=== PATIENT | female | born 1940 | race Caucasian/White ===

== ENCOUNTER 2020-01-05 08:04 | Outpatient (CLI) | payer MEDICARE, BC, SELFPAY ==
--- NOTE | ~2020-01-05 | CT_ITS ---
EXAMINATION: CT chest high resolution wo nh DATE: 01/05/2020 08:40 INDICATION: Interstitial lung disease. Dyspnea. TECHNIQUE: Computed tomography (CT) of the chest was performed without intravenous contrast. The dose -length product was 201.52 mGy-cm. Automated exposure control and iterative reconstruction technique were employed. COMPARISON: CT dated 10/16/2019 FINDINGS: Cardiomegaly. There is atherosclerosis. No significant pleural or pericardial effusion. Sta ble mediastinal lymphadenopathy. For example right paratracheal lymph node measures 1.4 cm, image 38. Status post cholecystectomy. The visualized aspects of the upper abdomen are unremarkable. There is chronic interstitial lung disease without significant change with a pattern consistent with nonspecif ic interstitial pneumonitis. There is mild-moderate thoracic spondylosis. No acute osseous abnormalit y. No pneumothorax. No endobronchial lesions. No acute focal pneumonia. IMPRESSION: 1. Stable chronic interstitial lung disease. 2: Stable mediastinal lymphadenopathy, likely reactive. 3: Cardiomegaly. Reviewed, dictated and finalized at location B. [employer]
--- NOTE | 2020-01-05 10:55 | PCRCNOTE ---
PT. UNABLE TO COMPLETE LUNG VOLUMES AND DIFFUSION. PT. KEPT COUGHING AND COMING OFF OF MOUTHPIECE. TESTING STOPPED. ONLY ABLE TO OBTAIN SPIROMETRY. RADHA AT DR. GUTIERREZ'S OFFICE NOTIFIED.
--- NOTE | 2020-01-07 23:30 | WPDPFTINT ---
PFT Interpretation PFT Interpretation: DOS: 01/05/2020 REQUESTING: Shortness of breath, ILD REASON FOR TESTING: Dr Medley PULMONARY FUNCTION TESTS The patient was unable to complete lung volumes or diffusion, coughed repeatedly with her mouth coming off of the mouthpiece. She was only able to complete the spirometry, not lung volumes or diffusion. Spirometry: FEV1 was mildly decreased, 73%, 1.4 L. The FVC was moderately decreased, 56%. No airflow obstruction. No bronchodilator was given. Flow volume loop: Unremarkable. IMPRESSION: Results are not completely reliable as the patient not able to complete the testing due to constant coughing. Mild to moderate ventilatory impairment without airflow obstruction. Missy Medley MD
== END 2020-01-05 08:05 | disposition home or self-care (01) ==
LOC: ANHIMG 08:07
PROVIDERS: PCP Internal Medicine; Visit Provider Internal Medicine Critical Care Medicine
DX: R06.02 Shortness of breath (principal); J84.9 Interstitial pulmonary disease, unspecified; R59.0 Localized enlarged lymph nodes; I51.7 Cardiomegaly
CPT/HCPCS: 71250; 94375

== ENCOUNTER 2020-01-21 16:45 | Outpatient (CLI) | payer MEDICARE, BC, SELFPAY ==
[2020-01-21 17:42] LABS: Basophils Absolute Auto 0.1 K/mm3 (0.0-0.1); Basophils Percent Auto 0.7 % (0.2-1.2); Eosinophils Absolute Auto 0.7 K/mm3 (0-0.3); Eosinophils Percent Auto 6.3 % (0-4.4); Hematocrit 29.7 % (37.0-47.0); Hemoglobin 9.3 g/dL (12.0-15.0); Immature Granulocyte Absolute 0.06 K/mm3 (0.00-0.031); Immature Granulocyte Percent A 0.5 % (0-0.5); Lymphocytes Absolute Auto 1.41 K/mm3 (0.9-3.2); Mean Corpuscular HGB Conc 31.3 g/dl (32-36); Mean Corpuscular Hemoglobin 26.2 pg (26-34); Mean Corpuscular Volume 83.7 fl (80-100); Mean Platelet Volume 8.6 fl (7.4-10.4); Monocytes Absolute Auto 0.8 K/mm3 (0.1-0.6); Monocytes Percent Auto 6.7 % (2.6-8.5); Neutrophils Absolute Auto 8.7 K/mm3 (1.3-6.7); Neutrophils Percent Auto 73.8 % (45.5-73.1); Platelet Count Result 475 k/mm3 (150-375); Red Blood Count 3.55 M/mm3 (4.2-5.4); Red Cell Distribution Width 12.4 % (11.5-14.5); White Blood Count 11.8 K/mm3 (4.5-10.0)
[2020-01-21 17:55] LABS: Alanine Aminotransferase 15 U/L (4-35); Albumin Level 3.5 g/dL (3.5-5.1); Alkaline Phosphatase 81 U/L (38-126); Aspartate Amino Transferase 31 U/L (14-36); Bilirubin,Total 0.2 mg/dL (0.2-1.3); Cholesterol 154 mg/dL (0-200); HDL Direct 43 mg/dL; Triglycerides 117 mg/dL (<150)
[2020-01-21 17:56] LABS: Alanine Aminotransferase 16 U/L (4-35); Albumin Level 3.7 g/dL (3.5-5.1); Alkaline Phosphatase 85 U/L (38-126); Aspartate Amino Transferase 30 U/L (14-36); Bilirubin,Total 0.2 mg/dL (0.2-1.3); Blood Urea Nitrogen 22 mg/dL (7-17); Calcium 8.5 mg/dL (8.4-10.2); Carbon Dioxide 28 mmol/L (22-30); Chloride 90 mmol/L (98-107); Estimated Glomerular Filt Rate 43; Glucose 107 mg/dL (65-105); Potassium 4.1 mmol/L (3.4-5.0); Sodium 127 mmol/L (137-145)
[2020-01-21 18:06] LABS: LDL Cholesterol Direct 72 mg/dL
[2020-01-21 18:30] LABS: Free T4 Free Thyroxine 1.66 ng/mL (0.78-2.19)
== END 2020-01-21 16:46 | disposition home or self-care (01) ==
PROVIDERS: Family Provider Nurse Practitioner; PCP Internal Medicine; Visit Provider Nurse Practitioner
DX: R06.02 Shortness of breath (principal); R53.1 Weakness; E78.2 Mixed hyperlipidemia; E03.9 Hypothyroidism, unspecified
CPT/HCPCS: 36415; 80053; 80061; 80076; 84439; 84443; 85025

== ENCOUNTER 2020-02-02 08:31 | Inpatient (IN) | payer MEDICARE, BC, SELFPAY ==
[2020-02-02] VITALS (9 sets, daily range): BP systolic 122–152; BP diastolic 55–70; PULSE 89–115; RESP 18–24; TEMP 36.6–36.9; O2SAT 96–100
--- NOTE | ~2020-02-02 | US_ITS ---
EXAMINATION: US carotid duplex BI DATE: 02/03/2020 11:29 INDICATION: Subjective visual disturbance, weakness including facial weakness, vertigo and gait probl ems. TECHNIQUE: Grayscale, color Doppler, and pulsed Doppler images of the cervical carotid arteries were obtained. The degree of vessel stenosis is placed in one of the following categories: normal, <50%, 5 0-69%, >=70% but less than near-occlusion, near-occlusion, or total occlusion. Note that percent sten osis relative to normal distal artery lumen diameter is indirectly measured from velocity measurement s as described by Simone, et al. Radiology 2003; [id number]:[id number]. COMPARISON: None. FINDINGS: RIGHT: The right common carotid artery (CCA) peak systolic velocity (PSV) is 89 cm/s. The right internal car otid artery (ICA) PSV is 100 cm/s. The right ICA end-diastolic velocity (EDV) is 31 cm/s. The right I CA/CCA PSV ratio is 1.1. Grayscale and color Doppler images yield an estimate of <50% diameter reduct ion from plaque in the ICA. The external carotid artery (ECA) PSV is 167 cm/s. There is antegrade quintin w in the right vertebral artery. LEFT: The left CCA PSV is 88 cm/s. The left ICA PSV is 84 cm/s. The left ICA EDV is 6 cm/s. The left ICA/CC A PSV ratio is 1.0. Grayscale and color Doppler images yield an estimate of <50% diameter reduction f rom plaque in the ICA. The ECA PSV is 136 cm/s. There is antegrade flow in the left vertebral artery. IMPRESSION: 1. <50% stenosis in the right internal carotid artery. 2. <50% stenosis in the left internal carotid artery. Reviewed, dictated and finalized at location A.
--- NOTE | ~2020-02-02 | CT_ITS ---
EXAMINATION: CT cervical spine wo/w con EXAM DATE: 02/03/2020 16:47 INDICATION: Lower extremity weakness. TECHNIQUE: Spiral CT of the cervical spine was performed without followed by with intravenous injecti on of 100 mL intravenous Omnipaque 350 contrast. Axial images were reviewed. Coronal and sagittal r eformatted images were also reviewed. The dose-length product (DLP) for this examination was 3690.66 mGy-cm. The exposure was tailored according to patient size (auto mA exposure control), and iterativ e reconstruction (ASIR) was used as additional dose reduction technique. Comparison is made to prior examination from 05/25/2018. FINDINGS: The vertebral arteries are codominant and both patent, no carotid or vertebral arterial di ssection. There is mild to moderate carotid bulb arterial sclerosis with no more than mild stenosis. Mild to moderate disc disease at C6-7, C7-T1, mild at the other cervical levels. There is 2-3 mm ante rolisthesis C3 on C4, C5 on C6, T1 and T2. There are no acute fractures identified. Vertebral body he ights are relatively well-maintained. Paraspinal soft tissue is unremarkable. There are no areas of a bnormal enhancement on the post contrast images. No evidence of epidural abscess. Level by level evaluation: C2-C3: Disc does not extend beyond the endplate margin. Uncovertebral joint arthropathy: Mild bilateral. Facet joint arthropathy: Moderate left, mild right. Neural foraminal stenosis: Mild to moderate left. Central canal stenosis: No stenosis. C3-C4: There is a mild diffuse disc bulge. Uncovertebral joint arthropathy: Mild to moderate left, mild right. Facet joint arthropathy: Severe left, moderate to severe right. Neural foraminal stenosis: Moderate to severe left. Central canal stenosis: No stenosis. C4-C5: There is a mild diffuse disc bulge. Uncovertebral joint arthropathy: Mild to moderate bilateral. Facet joint arthropathy: Severe right, moderate left. Neural foraminal stenosis: Severe right, moderate to severe left. Central canal stenosis: Mild. C5-C6: There is a mild diffuse disc bulge. Uncovertebral joint arthropathy: Moderate bilateral. Facet joint arthropathy: Severe right, moderate to severe left. Neural foraminal stenosis: Moderate to severe bilateral, right greater than left. Central canal stenosis: Mild. C6-C7: Disc does not extend beyond the endplate margin. Uncovertebral joint arthropathy: Moderate right, mild to moderate left. Facet joint arthropathy: Moderate to severe left, mild right. Neural foraminal stenosis: Mild to moderate right, mild left. Central canal stenosis: Mild. C7-T1: Disc does not extend beyond the endplate margin. Uncovertebral joint arthropathy: Mild bilateral. Facet joint arthropathy: Mild bilateral. Neural foraminal stenosis: No stenosis. Central canal stenosis: No stenosis. IMPRESSION: 1. Advanced cervical arthropathy causing neural foraminal stenosis as detailed above. 2. No evidence of significant central canal stenosis. Reviewed, dictated and finalized at location A.
--- NOTE | ~2020-02-02 | CT_ITS ---
EXAMINATION: CT brain wo con INDICATION: Lower extremity weakness COMPARISON: 05/25/2018 TECHNIQUE: Standard unenhanced head CT. The dose-length product (DLP) was 605.33 mGy-cm. The mA was a djusted according to patient size. Iterative reconstruction technique was employed. FINDINGS: There is no acute intraparenchymal hemorrhage. No evidence of mass lesion. No evidence of a cute infarction. There is mild periventricular and subcortical hypodensity probably related to small vessel ischemic disease. There is mild prominence of the sulci and ventricles related to cerebral atr ophy. Intracranial calcified cerebral atherosclerosis is noted. There are no extra-axial collections. There is no mass effect or midline shift. Changes in the globes are likely from ocular lens surgery. The visualized sinuses and mastoid air cells are well aerated. IMPRESSION: 1. No acute intracranial abnormality. 2. Age related findings. Reviewed, dictated and finalized at location A.
--- NOTE | ~2020-02-02 | CT_ITS ---
EXAMINATION: CT abdomen pelvis w con DATE: 02/04/2020 13:32 INDICATION: Microscopic hematuria. TECHNIQUE: Computed tomography (CT) of the abdomen and pelvis was performed with 100 mL Omnipaque 350 intravenous contrast. Automated exposure control and iterative reconstruction technique were employe d. The dose-length product was 812.88 mGy-cm. COMPARISON: CT lumbar spine 02/03/2020, abdomen 08/04/2004 FINDINGS: The visualized portions of the lung bases demonstrate peripheral reticular opacities, groun dglass opacities, airspace opacities and mild bronchiectasis, consistent with chronic interstitial lisa ng disease. Calcified pulmonary nodules are consistent with old granulomatous disease. No pleural eff usion. Cardiomegaly is noted. There are coronary artery calcifications. No pericardial effusion. Ther e is a 5 mm cyst in the liver. There are changes of cholecystectomy. The spleen, pancreas, and adrena l glands are normal. There are cysts in the kidneys measuring up to 5.8 cm on the right. There is no urolithiasis. There is diverticulosis of the colon without evidence of diverticulitis. There are no d ilated loops of bowel. The appendix is not visualized. There are no pathologically enlarged lymph nod es. There is no free intraperitoneal fluid. There is a total right hip arthroplasty. Artifact from th e arthroplasty partially obscures the bladder, which is otherwise normal. There is severe thoracic an d lumbar spondylosis. IMPRESSION: 1. No etiology for hematuria. 2. Chronic interstitial lung disease. Reviewed, dictated and finalized at location A.
--- NOTE | ~2020-02-02 | XR_ITS ---
EXAMINATION: XR chest 2V DATE: 02/02/2020 10:56 INDICATION: Cough and weakness TECHNIQUE: frontal and lateral views of the chest were obtained. COMPARISON: Chest radiograph dated 06/04/[address] dated 01/05/2020 FINDINGS: Similar pattern of peripheral and lower lung predominant coarse interstitial opacities in both lungs relatively sparing the left upper lung zone consistent with chronic interstitial lung disease. No ple ural effusion or pneumothorax. Cardiomegaly. Cholecystectomy clips in right upper quadrant. Severe th oracolumbar spondylosis. IMPRESSION: 1. 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 2. Cardiomegaly. Reviewed, dictated and finalized at location A. IMPRESSION: 1. Chronic bilateral coarse interstitial opacities with peripheral and lower lisa ng predominance consistent with chronic interstitial pneumonia of nonspecific i nterstitial pneumonia (NSIP) pattern on prior CT. 2. Cardiomegaly.
--- NOTE | ~2020-02-02 | CT_ITS ---
EXAMINATION: CT thoracic lumbar wo/w con EXAM DATE: 02/03/2020 16:43 INDICATION: Lower body weakness. TECHNIQUE: Spiral CT of the thoracic and lumbar spine was performed without contrast. Patient was the n injected with 100 mL intravenous Omnipaque 350 solution and reimaged thoracic and lumbar spine. Axi al, coronal and sagittal thoracic images were reviewed. Axial, coronal and sagittal images of the lum bar were reviewed. The dose-length product (DLP) for this examination was 3690.66 mGy-cm. The expos ure was tailored according to patient size (auto mA exposure control), and iterative reconstruction ( ASIR) was used as additional dose reduction technique. There is no prior study for comparison. FINDINGS: Some limitations from patient's body habitus. THORACIC SPINE: There are mild disc bulges causing no more than mild central canal stenosis of the th oracic spine. Mild to moderate thoracic facet arthropathy. This is causing some neural foraminal sten osis, on the left mostly T8-11 and on the right at T7/8, T8/9, T10-L1. The vertebral body heights are maintained. There are moderate-sized bridging thoracic endplate osteophytes from T8 through L1. Ther e are no acute fractures identified. The vertebral bodies are aligned in the AP dimension. There is n o CT evidence of epidural abscess. Correlation was made with CT chest 10/16/2019. Mildly diffusely heterogeneous marrow probably some fo jacob regions of osteopenia does not appear significantly changed. The peripheral airspace disease, int erstitial lung disease has progressed, with more interlobular septal thickening and volume loss of blue th lung bases, or could be superimposed pulmonary edema. There is cardiomegaly. LUMBAR SPINE: There is moderate to severe disc disease L4-S1, moderate at the other levels from T12-L 4. There is 3 mm anterolisthesis L3 on L4. Vacuum disc phenomenon at all levels from T12-S1. Mild los s of the L4 and L5 vertebral body heights without acute compression fracture. No spondylolysis. No CT evidence of epidural abscess. No paraspinal fluid collection or endplate erosive change. Sacroiliac joints are intact, no evidence of insufficiency fracture. Incidental note made of fat density within the central aspect of the spinal canal posterior to the L2 vertebral body measuring 4 mm diameter by 15 mm in length, probably a lipoma of the filum terminale. Level by level evaluation: T12-L1: There is a moderate diffuse disc bulge. Facet arthropathy: Mild to moderate. Neural foraminal stenosis: Mild to moderate right. Central canal stenosis: Mild. L1-L2: Moderate-sized posterior disc osteophyte complex. Facet arthropathy: Moderate. Neural foraminal stenosis: Mild to moderate bilateral. Central canal stenosis: Moderate. L2-L3: There is a moderate to large diffuse posterior disc osteophyte complex Facet arthropathy: Moderate to severe bilateral. Probable ligamentum flavum hypertrophy Neural foraminal stenosis: Moderate left, mild right. Central canal stenosis: At least moderate to severe. L3-L4: There is a moderate diffuse disc bulge. Facet arthropathy: Moderate to severe. Neural foraminal stenosis: Mild to moderate left, mild right. Central canal stenosis: Mild to moderate. L4-L5: There is a moderate diffuse disc bulge. Facet arthropathy: Moderate. Neural foraminal stenosis: Mild to moderate bilateral. Central canal stenosis: Moderate. L5-S1: There is a moderate diffuse disc bulge. Facet arthropathy: Moderate to severe. Neural foraminal stenosis: Moderate left, mild to moderate right. Central canal stenosis: Mild to moderate. IMPRESSION: 1. Thoracic spondylosis as described without significant central canal stenosis. 2. L2-3 posterior disc osteophyte complex, arthropathy causing at least moderate to severe central c anal stenosis. 3. Probable incident
--- NOTE | 2020-02-02 08:38 | ECG_ITS ---
Measurements Intervals [place] Rate: 112 P: 28 MT: 177 QRS: 1 QRSD: 86 T: -9 QT: 293 QTc: 400 Interpretive Statements SINUS TACHYCARDIA LOW QRS VOLTAGE IN PRECORDIAL LEADS BORDERLINE R WAVE PROGRESSION, ANTERIOR LEADS BORDERLINE ST-T WAVE ABNORMALITY- ANT/INF LEADS BASELINE ARTIFACT- I, II, AVR, AVL, V5 ABNORMAL ECG Electronically Signed On 02-02-2020 9:49:03 CDT by Minesh Guan D.O.
--- NOTE | 2020-02-02 08:48 | ED.WEAKNESS ---
HPI - Weakness General Chief complaint: Weakness Stated complaint: weakness Time Seen by Provider: 02/02/20 08:41 Source: patient Mode of arrival: EMS Limitations: no limitations History of Present Illness HPI Narrative: Pt is an 79 y/o female who presents to the ED, via EMS, with c/o BLE weakness that started 3 days ago and worsened this morning. Pt states that she is barely able to stand on her feet. She reports lt leg numbness, but denies fever, or N/V. MD Complaint: difficulty walking Onset (ago): day(s) (3) Duration: progressively worsening Location: LLE and RLE Associated symptoms: other (lt leg numbness) Related Data Home Medications Medication Instructions Recorded Confirmed aspirin 81 mg tablet,delayed 81 mg PO DAILY 10/13/19 01/20/20 release conjugated estrogens 0.45 mg tablet 0.45 mg PO DAILY 10/13/19 01/20/20 flurbiprofen 100 mg tablet 100 mg PO BID 10/13/19 01/20/20 aebuvjci-ull-cefwm acid 0.4 1 tablet PO DAILY 10/13/19 01/20/20 mg-lycopene 300 mcg-lutein 250 mcg tablet vitamin E (dl, acetate) 400 unit 400 unit PO DAILY 10/13/19 01/20/20 capsule fexofenadine 60 mg tablet 60 mg PO Q12H 01/14/20 01/20/20 fluticasone propionate 50 1 spray NASAL BID 01/14/20 01/20/20 mcg/actuation nasal spray,suspension Allergies Allergy/AdvReac Type Severity Reaction Status Date / Time SEBASTIEN Inhibitors Allergy Unknown unknown Verified 02/02/20 11:51 ciprofloxacin Allergy Unknown unknown Verified 02/02/20 11:51 lisinopril Allergy Unknown unknown Verified 02/02/20 11:51 Sulfa (Sulfonamide AdvReac Intermediate DIARRHEA Verified 02/02/20 11:51 Antibiotics) codeine AdvReac Mild NAUSEA/VOMI Verified 02/02/20 11:51 TING Review of Systems Review of Systems: All systems reviewed & are unremarkable except as noted in HPI and below Constitutional: Constitutional: Denies fever(s) Gastrointestinal: Gastrointestinal: Denies nausea and Denies vomiting Neurologic: Reports numbness (lt leg) and Reports weakness (BLE) PMFSH Past Medical History Medical History (Updated 02/02/20 @ 13:21 by Pawan Flor MD) Adult hypothyroidism Arthritis COPD (chronic obstructive pulmonary disease) Diverticulitis Essential (primary) hypertension Gastroesophageal reflux disease without esophagitis GERD (gastroesophageal reflux disease) IBS (irritable bowel syndrome) ILD (interstitial lung disease) Iron deficiency anemia Mixed hyperlipidemia Primary osteoarthritis involving multiple joints Psoriasis Pulmonary arterial hypertension Spinal stenosis, unspecified region other than cervical Surgical History Surgical History (Updated 02/02/20 @ 09:26 by Agnes Sanchez) H/O: hysterectomy History of back surgery History of bladder surgery History of right hip replacement History of total hip replacement Hx of cholecystectomy Social History Social History Smoking status: Former smoker Smoking end date: 11/05/84 Alcohol intake: never Exam Const: General: no acute distress, well developed and other (elderly) Nutritional Appearance: other (frail) Orientation/consciousness: patient oriented x3 (alert) and Other orientation findings (Alert) Limitations: no limitations HENMT: Head: normocephalic, atraumatic and other (wearing a mask) Ears: external ears normal Face and sinus: face symmetric Eyes: Conjunctivae: conjunctivae normal Sclera: sclerae normal EOM: EOMs intact bilaterally Neck: Neck: full ROM Chest: Chest palpation & inspection: no tenderness Resp: Effort & Inspection: normal respiratory effort Cardio: Rate: regular rate Rhythm: regular rhythm Peripheral pulses: posterior tibial pulses present bilateral and dorsalis pedis present bilateral GI: Inspection: non-distended GI Palp: No abdominal tenderness and Yes Soft to palpation Auscultation: other (bowel sounds present) Back/Spine/Pelvis: Thoracic/Lumbar Spine: thoracic and lumbar s
[2020-02-02 09:01] LABS: Basophils Absolute Auto 0.1 K/mm3 (0.0-0.1); Basophils Percent Auto 0.5 % (0.2-1.2); Eosinophils Absolute Auto 0.2 K/mm3 (0-0.3); Eosinophils Percent Auto 1.3 % (0-4.4); Hematocrit 31.9 % (37.0-47.0); Immature Granulocyte Percent A 0.7 % (0-0.5); Lymphocytes Absolute Auto 1.14 K/mm3 (0.9-3.2); Lymphocytes Percent Auto 7.8 % (18.3-44.2); Mean Corpuscular HGB Conc 31.3 g/dl (32-36); Mean Corpuscular Hemoglobin 26.1 pg (26-34); Mean Corpuscular Volume 83.3 fl (80-100); Mean Platelet Volume 8.8 fl (7.4-10.4); Monocytes Absolute Auto 0.8 K/mm3 (0.1-0.6); Monocytes Percent Auto 5.7 % (2.6-8.5); Neutrophils Absolute Auto 12.4 K/mm3 (1.3-6.7); Platelet Count Result 605 k/mm3 (150-375); Red Blood Count 3.83 M/mm3 (4.2-5.4); Red Cell Distribution Width 13.1 % (11.5-14.5); White Blood Count 14.7 K/mm3 (4.5-10.0)
[2020-02-02 09:19] LABS: Alanine Aminotransferase 27 U/L (4-35); Albumin Level 3.6 g/dL (3.5-5.1); Alkaline Phosphatase 105 U/L (38-126); Aspartate Amino Transferase 49 U/L (14-36); Bilirubin,Total 0.4 mg/dL (0.2-1.3); Blood Urea Nitrogen 21 mg/dL (7-17); Carbon Dioxide 27 mmol/L (22-30); Chloride 94 mmol/L (98-107); Estimated CRCL calculation 46 ml/min; Estimated Glomerular Filt Rate 60; Glucose 116 mg/dL (65-105); Sodium 128 mmol/L (137-145)
[2020-02-02 10:51] LABS: Add Urine Microscopic? YES; Appearance Urine Clear (Clear); Bacteria Urine Trace /hpf; Bilirubin Urine Negative (Negative); Blood Urine 1+ (Negative); Color Urine Yellow (Yellow); Glucose Urine UA Negative (Negative); Ketones Urine Negative (Negative); Leukocyte Esterase Ur Negative LEU/UL (Negative); Mucus Urine Rare /lpf; Nitrate Urine Negative (Negative); Protein Urine Negative (Negative); Specific Grav Ur 1.013 (1.001-1.035); Squamous Epithelial Cell Urine Rare /hpf (Few); Urobilinogen Urine Negative mg/dL (<2.0)
[2020-02-02] MEDS: ONDANSETRON INJ 4 MG/2 ML VIAL (14:23)
[2020-02-02] MEDS: SODIUM CHLORIDE 0.9% IV 1,000 ML 125 ML IV CONT ×2 (15:46→23:53)
[2020-02-02] MEDS: ASPIRIN 81 MG CHEWABLE TABLET PO (15:48)
--- NOTE | 2020-02-02 17:23 | PM.IMHP ---
H&P: HPI History of Present Illness Chief complaint: Gait problems/foot drop/interstitial lung disease/ Narrative: Aryan Nick is a 79 year old female patient has a history of chronic interstitial lung disease. The patient sees Dr. Medley here in the clinic. She has not been on any steroids. She has not had any recent flu shots are any recent vaccines. She is not herself had any influenza. She has had no prior history of any strokes. The patient stated that she cannot walk and that she has weakness to her lower extremities is more lower extremities. That is her upper extremities. She has had no nausea no vomiting no diarrhea. CT of the head no acute intracranial abnormality. Age-related findings. Her H&H is 10.0 in 31.9. White count 14.7. Sodium is 128. Patient is being admitted for stroke workup and neurology has been consulted. She was given an aspirin in Zofran in the emergency room. Was read as chronic bilateral coarse interstitial opacities with peripheral and lower lung predominance consistent with chronic interstitial pneumonia nonspecific interstitial pneumonia pattern on prior CT. She has CT scan earlier this month and in October and she states that this month which was similar similar. Patient cannot have an MRI she is severely claustrophobic. He has tried Valium in the past with an MRI in it did work out. Date of service 02/02/2020 Review of Systems Review of Systems: All systems reviewed & are unremarkable except as noted in HPI and below Constitutional: Constitutional: Reports as per HPI, Reports no additional constitutional complaints, Reports fatigue and Reports lethargy Eyes: Eyes: Reports as per HPI and Reports no additional eye complaints ENT: Reports system reviewed and no additional complaints, except as documented and Reports Normal hearing present Cardiovascular: Cardiovascular: Reports no additional cardiovascular complaints Respiratory: Respiratory: Reports no additional respiratory complaints and Reports no additional respiratory complaints Gastrointestinal: Gastrointestinal: Reports as per HPI and Reports no additional gastrointestinal complaints Musculoskeletal: Musculoskeletal: Reports no additional musculoskeletal complaints Integumentary/Breasts: Skin/Breast: Reports system reviewed and no additional complaints, except as docu and Reports as per HPI Neurologic: Reports system reviewed and no additional complaints, except as documented, Reports as per HPI and Reports Normal hearing present Psychiatric: Psychiatric: Reports no additional psychiatric complaints and Reports as per HPI Endocrine: Endocrine: Reports no additional endocrine complaints Hematologic/Lymphatic: Hematologic/Lymphatic: Reports no additional hematologic/lymphatic complaints Allergic/Immunologic: Allergic/Immunologic: Reports no additional allergic/immunologic complaints [facility] Past Medical History Medical History Adult hypothyroidism Arthritis COPD (chronic obstructive pulmonary disease) Diverticulitis Essential (primary) hypertension Gastroesophageal reflux disease without esophagitis GERD (gastroesophageal reflux disease) IBS (irritable bowel syndrome) ILD (interstitial lung disease) Iron deficiency anemia Mixed hyperlipidemia Primary osteoarthritis involving multiple joints Psoriasis Pulmonary arterial hypertension Spinal stenosis, unspecified region other than cervical Surgical History Surgical History H/O: hysterectomy History of back surgery History of bladder surgery History of right hip replacement History of total hip replacement Hx of cholecystectomy Family History Family History (Updated 02/02/20 @ 17:36 by Scarlet Puckett NP) Mother Cerebrovascular accident Father Acute myocardial infarction Sibling Heart disease Social History Social History (Updated 02/02/20 @ 17:38 by [place]
[2020-02-02 18:46] LABS: Blood Urea Nitrogen 20 mg/dL (7-17); Calcium 8.4 mg/dL (8.4-10.2); Carbon Dioxide 27 mmol/L (22-30); Chloride 92 mmol/L (98-107); Estimated CRCL calculation 46 ml/min; Estimated Glomerular Filt Rate 60; Glucose 120 mg/dL (65-105); Potassium 4.6 mmol/L (3.4-5.0); Sodium 126 mmol/L (137-145)
[2020-02-02] MEDS: AZITHROMYCIN 250 MG TABLET PO (19:04)
[2020-02-02] MEDS: FAMOTIDINE 20 MG TABLET 40 MG PO (20:16)
[2020-02-02] MEDS: CALCIUM CARBONATE (TUMS) 500 MG (200 MG ELEMENTAL) PO (20:16)
[2020-02-02] MEDS: FLUTICASONE PROPIONATE 0.05% NA SPR 16 GM BTL (*BKC) 1 SPRAY NASAL (20:50)
[2020-02-03] VITALS (9 sets, daily range): BP systolic 108–134; BP diastolic 52–55; PULSE 81–99; RESP 16–18; TEMP 36.5–37.3; O2SAT 95–98; BMI 28.0
--- NOTE | 2020-02-03 | ECHO_ITS ---
Patient Info Name: Aryan Nick Age: 79 years : 1940 Gender: Female Ht: 66 in Wt: 173 lbs BSA: 1.93 m2 HR: 86 bpm BP: 118 / 55 mmHg Heart Rhythm: Sinus Rhythm Technical Quality: Good Exam Date: 02/03/2020 9:29 AM Exam Location: [facility] [facility] Patient Status: Inpatient Admit Date: 02/02/2020 Staff Ordering Physician: Scarlet Puckett NP Pipe [employer] Pipe: Gunnar Dyer RDCS Attending Provider: Cristofer Cortez MD Referring Physician: Lavern CASTILLO; Exam Type: CA echo doppler w bubble study Study Info Indications R53.1 - Weakness Complete two-dimensional, color flow and Doppler transthoracic echocardiogram is performed with agitated saline. Contrast/Agitated Saline Contrast/Ag. Saline: Agitated Saline Amount: 18.00 ml Administered By: Arianne Toure RN Existing IV Access: Yes History/Risk Factors Weakness; COPD, HTN, pHTN. Summary 1. Left ventricular chamber dimension is normal. 2. Left ventricular systolic function is normal, estimated at 65-70%. 3. The left ventricular diastolic function is grade I diastolic dysfunction. 4. E/e' 7 is not elevated. 5. Left atrial chamber dimension is mildly enlarged. 6. There is trace mitral valve regurgitation. 7. There is mild tricuspid valve regurgitation. 8. Mild pulmonary hypertension, estimated pulmonary arterial systolic pressure is 42 mmHg. 9. There is mild pulmonic regurgitation. Left Ventricle E/e' 7 is not elevated. Left ventricular chamber dimension is normal. Left ventricular systolic function is normal, estimated at 65-70%. The left ventricular diastolic function is grade I diastolic dysfunction. Right Ventricle Right ventricular chamber dimension is normal. Right ventricular systolic function is normal. Left Atria Left atrial chamber dimension is mildly enlarged. Right Atria Right atrial chamber dimension is normal. Atrial Septum Agitated saline administered opacified right sided chambers with and without valsalva maneuver without any shunt to left sided chambers. Intact interatrial septum visualized by color flow and agitated saline imaging. Aortic Valve The aortic valve is trileaflet. There is no aortic valve stenosis. There is no aortic valve regurgitation. Pulmonic Valve There is mild pulmonic regurgitation. Mitral Valve There is no mitral valve stenosis. There is trace mitral valve regurgitation. Tricuspid Valve There is mild tricuspid valve regurgitation. Mild pulmonary hypertension, estimated pulmonary arterial systolic pressure is 42 mmHg. Pericardium/Pleural There is no pericardial effusion. Inferior Vena Cava Normal inferior vena cava with >50% collapse upon inspiration consistent with normal right atrial pressure, 5 mmHg. Aorta The aortic root size at the sinus of Valsalva is normal. Left Ventricular Outflow Tract Name Value Normal LVOT 2D LVOT Diameter 2.1 cm LVOT Doppler LVOT Peak Gradient 5 mmHg LVOT Mean Gradient 2 mmHg LVOT VTI
[2020-02-03 05:25] LABS: Basophils Absolute Auto 0.1 K/mm3 (0.0-0.1); Basophils Percent Auto 0.6 % (0.2-1.2); Eosinophils Absolute Auto 0.1 K/mm3 (0-0.3); Eosinophils Percent Auto 0.8 % (0-4.4); Hematocrit 28.4 % (37.0-47.0); Hemoglobin 8.8 g/dL (12.0-15.0); Immature Granulocyte Absolute 0.13 K/mm3 (0.00-0.031); Immature Granulocyte Percent A 0.9 % (0-0.5); Lymphocytes Percent Auto 8.4 % (18.3-44.2); Mean Corpuscular Hemoglobin 25.9 pg (26-34); Mean Corpuscular Volume 83.5 fl (80-100); Mean Platelet Volume 8.5 fl (7.4-10.4); Monocytes Absolute Auto 0.8 K/mm3 (0.1-0.6); Monocytes Percent Auto 5.5 % (2.6-8.5); Neutrophils Percent Auto 83.8 % (45.5-73.1); Platelet Count Result 536 k/mm3 (150-375); Red Cell Distribution Width 13.1 % (11.5-14.5); White Blood Count 14.4 K/mm3 (4.5-10.0)
[2020-02-03 05:35] LABS: Alanine Aminotransferase 27 U/L (4-35); Albumin Level 2.9 g/dL (3.5-5.1); Alkaline Phosphatase 80 U/L (38-126); Aspartate Amino Transferase 44 U/L (14-36); Bilirubin,Total 0.3 mg/dL (0.2-1.3); Blood Urea Nitrogen 18 mg/dL (7-17); Calcium 8.1 mg/dL (8.4-10.2); Carbon Dioxide 24 mmol/L (22-30); Chloride 97 mmol/L (98-107); Estimated CRCL calculation 51 ml/min; Estimated Glomerular Filt Rate > 60; Glucose 99 mg/dL (65-105); Magnesium 1.9 mg/dL (1.6-2.3); Potassium 4.6 mmol/L (3.4-5.0); Sodium 128 mmol/L (137-145)
[2020-02-03] MEDS: LEVOTHYROXINE SODIUM 50 MCG TABLET PO (06:19)
[2020-02-03] MEDS: SODIUM CHLORIDE 0.9% IV 1,000 ML 125 ML IV CONT ×2 (06:19→17:03)
[2020-02-03 07:12] LABS: Thyroid Stimulating Hormone Reflex 0.994 uIU/mL (0.465-4.68)
--- NOTE | 2020-02-03 08:26 | PCOTNOTE ---
OT attempted evaluation this morning. Nurse was present and helping patient get adjusted in bed. The patient stated she knew what therapy was and refused to participate in an evaluation. She reports she is too weak to do anything. Both nurse and OT explained the benefits of occupational therapy and the importance of completing ADLs to regain strength. Patient still refused. OT helped nurse adjust the patient in bed and informed the patient she will attempt again this afternoon.
[2020-02-03] MEDS: ASPIRIN 81 MG CHEWABLE TABLET PO (08:35)
[2020-02-03] MEDS: CANDESARTAN CILEXETIL 16 MG TABLET PO (08:35)
[2020-02-03] MEDS: FLUTICASONE PROPIONATE 0.05% NA SPR 16 GM BTL (*BKC) 1 SPRAY NASAL ×2 (08:35→20:54)
[2020-02-03] MEDS: VITAMIN E 400 UNIT CAPSULE PO (08:35)
[2020-02-03] MEDS: hydroCHLOROthiazide 12.5 MG CAPSULE PO (08:35)
[2020-02-03] MEDS: FAMOTIDINE 20 MG TABLET 40 MG PO ×2 (08:35→17:04)
[2020-02-03] MEDS: MULTIVITAMINS /C LUTEIN (CENTRUM SILVER) TABLET *BKC 1 TAB PO (08:35)
--- NOTE | 2020-02-03 13:46 | CONS_ITS ---
DATE OF CONSULTATION: 02/02/2020 HISTORY OF PRESENT ILLNESS: This 79-year-old right-handed female has been admitted to [facility] through the emergency room for the complaint of gait dysfunction with a footdrop in addition to history of interstitial lung disease. She has not had any specific flu shots and she sees her dr in the clinic. She has no history of stroke in the past, but she complained that she was unable to walk because of weakness in her lower extremities, more so than upper extremities without associated general symptomatology such as nausea, vomiting, diarrhea. Initial CT scan of the head in the emergency room was negative. WBCs were 14.7, sodium 128. She was admitted to the hospital for the workup of the stroke. In the emergency room, she was given aspirin and Zofran. She was also noted to have chronic bilateral coarse interstitial opacities with peripheral and lower lungs predominance, consistent with chronic interstitial pneumonia. She has had the CT scan earlier this month, which has revealed the same findings. She was unable to have MRI because of claustrophobia. PAST MEDICAL HISTORY: In the past, she has ongoing history of hypothyroidism, arthritis, COPD, diverticulitis, GERD, irritable bowel syndrome, interstitial lung disease, iron deficiency anemia, hyperlipidemia, osteoarthritis involving multiple joints, psoriasis, pulmonary hypertension, and spinal stenosis other than the cervical. PAST SURGICAL HISTORY: She has also undergone hysterectomy, back surgery, bladder surgery, right hip replacement, total hip replacement, and cholecystectomy. SOCIAL HISTORY: She quit smoking about 35 years ago. Former smoker. Does not drink. MEDICATIONS: At the time of admission to the hospital, she was taking multiple medications includin. Aspirin. 2. Levothyroxine. 3. Hydrochlorothiazide. 4. Azithromycin. 5. Ranitidine. ALLERGIES: SHE IS ALLERGIC TO SEBASTIEN INHIBITOR, CIPRO, LISINOPRIL, SULFA, CODEINE, AND DECONGESTANT. PHYSICAL EXAMINATION: VITAL SIGNS: Evaluation up until now has revealed her to be afebrile and pulse 115, respiration 18, blood pressure 128/68. GENERAL: She is awake, alert, cooperative, in no obvious acute distress, eating her dinner, complaining of difficulties in ambulation. HEENT: Head normocephalic with no cranial bruit. Ear, nose, throat examination normal. NECK: Supple with no cervical bruit. No thyromegaly. No lymphadenopathy. HEART: Regular. LUNGS: Clear. ABDOMEN: Soft. NEUROLOGICAL: She is awake, alert, oriented x3. Speech not dysphasic, not dysarthric, not dysphonic. Pupils round, regular. Jackson of vision full. Extraocular movements full. Face symmetrical. Tongue midline. Motor examination revealed her to have weakness of the lower extremities. Deep tendon reflexes sluggish. Plantars are downgoing. She has no evidence of gross cerebellar deficit. LABORATORY DATA: Evaluation up until now revealed her to have normal CBC with hemoglobin 10.0, WBC 14.7 with platelet count 605. Basic metabolic panel with sodium of 128, chloride 94, CO2 of 27, BUN 21. Hepatic enzymes normal. UA negative. CT scan of the head is negative. IMPRESSION: Considering that she has ongoing history of chronic back, in addition to the history of spinal stenosis. Her extremities weakness could very well be related to that. She will definitely benefit from the MRI of the back, if she is unable to handle then we can get the CT scan. She will definitely need the CT scan of thoracic, cervical and lumbosacral spine before any further recommendations are made. NGOC CHAN M.D. FLOOR [employer]NER C
--- NOTE | 2020-02-03 14:27 | PM.IMPN ---
Progress Note: A&P Assessment and Plan (1) Gait disorder: Code(s): R26.9 - Unspecified abnormalities of gait and mobility Status: Acute Assessment and Plan: Spinal vs autoimmune (myopathy, MG, PMR, paraneoplastic) vs functional CRP, CK, CT c-, t-, l-spines (2) Iron deficiency anemia: Code(s): D50.9 - Iron deficiency anemia, unspecified Status: Acute Assessment and Plan: H/H drifting down a bit. F/u lab. (3) Spinal stenosis, unspecified region other than cervical: Code(s): M48.00 - Spinal stenosis, site unspecified Status: Acute Assessment and Plan: Prior surgery for thoracic stenosis (4) ILD (interstitial lung disease): Code(s): J84.9 - Interstitial pulmonary disease, unspecified Status: Acute Assessment and Plan: Clinically stable (5) Cough: Code(s): R05 - Cough Status: Acute Assessment and Plan: Chronic Subjective Date/time seen: 02/03/20 14:27 Interval history: Admitted 02/01 with about 3 days of gradually increased weakness and numbness in legs. Difficulty rolling over in bed. Had some jaw claudication 1-2 days ago. Chronic intermittent back pain. Denied pain in chest or abdomen. Denied worsened SOB (has chronic cough and BARR). Denied dysphagia. Denied other GI/GI changes. Denied bleeding. Review of Systems Review of Systems: All systems reviewed & are unremarkable except as noted in HPI and below Exam Narrative: Exam Narrative: HEENT: EOMI, PERRL, sclerae nonicteric, pharyngeal mucosa pink and intact NECK: No JVD, adenopathy, or thyromegaly CHEST: Clear to auscultation. Normal effort. HEART: NL S1/S2, regular, no murmur ABDOMEN: BS+, soft, nontender, no mass, no bruits EXTREMITIES: No cyanosis, edema, or clubbing. NEUROLOGIC: CN intact and symmetric to inspection. DTRs intact to BT, 1+ knees, absent ankles. Babinskis normal. MUSCULOSKELETAL: Tone and strength symmetric. Sheetmetal Patternmaker intact w/o change on repetitive movement. LE strength symmetric. Nontender joints w/o swelling. PSYCH: Alert. Oriented to person, place, and time. Anxious. Objective Data Vital Signs Vital Signs: Vital Signs - 24 hr 02/02/20 15:09 02/02/20 20:00 02/03/20 00:00 Temperature 98.5 F Pulse Rate 102 H 89 84 Respiratory Rate 18 Blood Pressure 122/55 L Pulse Oximetry 98 02/03/20 04:00 02/03/20 06:12 02/03/20 08:00 Temperature 98.1 F Pulse Rate 81 83 84 Respiratory Rate 16 Blood Pressure 118/55 L Pulse Oximetry 95 Intake/Output Intake/Output: Intake & Output 01/31/20 02/01/20 02/02/20 02/03/20 23:59 23:59 23:59 23:59 Intake Total 1720 1590 Output Total 300 Balance 1720 1290 Meds/Results Medications: Active Medications Generic Name Dose Route Start Last Admin Trade Name Freq PRN Reason Stop Dose Admin Aspirin 81 mg 02/02/20 08:00 02/03/20 08:35 Aspirin Chewable PO 81 mg DAILY@0800 [facility] Administration Benzonatate 100 mg 02/02/20 17:19 Tessalon Perles PO TID PRN cough Candesartan Cilexetil 16 mg 02/03/20 09:00 02/03/20 08:35 Atacand PO 16 mg DAILY [facility] Administration Clobetasol Propionate 1 applic 02/03/20 09:00 02/03/20 08:36 Temovate 0.05% Cream TOPICAL 1 applic BID [facility] Administration Famotidine 40 mg 02/03/20 09:00 02/03/20 08:35 Pepcid PO 40 mg BID [facility] Administration Fluticasone Propionate 1 spray 02/02/20 21:00 02/03/20 08:35 Flonase 0.05% Nasal [place] NASAL 1 spray Q12HR LUZ MARINA Administration Hydrochlorothiazide 12.5 mg 02/03/20 09:00 02/03/20 08:35 Hydrochlorothiazide PO 12.5 mg DAILY [facility] MAR[facility] Administration Sodium Chloride 1,000 mls @ 125 mls/hr 02/02/20 13:25 02/03/20 06:19 Normal Saline Iv IV CONT 125 mls/hr .Q8H LUZ MARINA Administration Levothyroxine Sodium 50 mcg 02/03/20 06:30 02/03/20 06:19 Synthroid PO 50 mcg DAILY@0630 LUZ MARINA Administration Multivitamins/Minerals 1 tab
[2020-02-03 17:26] LABS: Creatine Kinase 175 U/L (30-135)
[2020-02-03] MEDS: BENZONATATE 100 MG CAPSULE PO (17:38)
[2020-02-03 17:41] LABS: CRP 22.7 mg/dL (<1.0)
[2020-02-03 17:52] LABS: Hepatitis B Surface Antigen Negative (Negative)
[2020-02-03 17:57] LABS: HAV RESULT Negative (Negative)
[2020-02-03 18:02] LABS: Iron 19 ug/dL (37-170)
[2020-02-03 18:09] LABS: Hepatitis C Virus Antibody Negative (Negative)
[2020-02-03 18:14] LABS: Percent Iron Saturation 8 % (20-50)
[2020-02-03 19:58] LABS: Folic Acid 19.3 ng/mL (2.76->20)
[2020-02-03 23:23] LABS: Urea Random Urine 365 MG/DL
[2020-02-03 23:24] LABS: Creatinine Urine 30.4 mg/dL
[2020-02-04] VITALS (8 sets, daily range): BP systolic 120–143; BP diastolic 54–76; PULSE 78–92; RESP 18–21; TEMP 36.4–37.2; O2SAT 95–100
[2020-02-04] MEDS: SODIUM CHLORIDE 0.9% IV 1,000 ML 125 ML IV CONT ×2 (02:06→16:33)
[2020-02-04] MEDS: BENZONATATE 100 MG CAPSULE PO ×3 (02:07→16:34)
[2020-02-04] MEDS: LEVOTHYROXINE SODIUM 50 MCG TABLET PO (06:01)
[2020-02-04 06:02] LABS: Alanine Aminotransferase 30 U/L (4-35); Albumin Level 2.9 g/dL (3.5-5.1); Alkaline Phosphatase 85 U/L (38-126); Aspartate Amino Transferase 46 U/L (14-36); Bilirubin,Total 0.3 mg/dL (0.2-1.3); Blood Urea Nitrogen 16 mg/dL (7-17); Calcium 8.1 mg/dL (8.4-10.2); Carbon Dioxide 25 mmol/L (22-30); Chloride 97 mmol/L (98-107); Estimated CRCL calculation 46 ml/min; Estimated Glomerular Filt Rate 60; Glucose 104 mg/dL (65-105); Potassium 4.2 mmol/L (3.4-5.0); Sodium 126 mmol/L (137-145)
[2020-02-04 06:09] LABS: Hematocrit 28.6 % (37.0-47.0); Hemoglobin 9.1 g/dL (12.0-15.0); Mean Corpuscular HGB Conc 31.8 g/dl (32-36); Mean Corpuscular Volume 81.7 fl (80-100); Mean Platelet Volume 8.5 fl (7.4-10.4); Platelet Count Result 642 k/mm3 (150-375); Red Cell Distribution Width 13.2 % (11.5-14.5); White Blood Count 16.8 K/mm3 (4.5-10.0)
[2020-02-04] MEDS: ASPIRIN 81 MG CHEWABLE TABLET PO (07:58)
[2020-02-04] MEDS: CANDESARTAN CILEXETIL 16 MG TABLET PO (07:58)
[2020-02-04] MEDS: FAMOTIDINE 20 MG TABLET 40 MG PO ×2 (07:59→16:34)
[2020-02-04] MEDS: FLUTICASONE PROPIONATE 0.05% NA SPR 16 GM BTL (*BKC) 1 SPRAY NASAL ×2 (07:59→20:26)
[2020-02-04] MEDS: VITAMIN E 400 UNIT CAPSULE PO (08:00)
[2020-02-04] MEDS: MULTIVITAMINS /C LUTEIN (CENTRUM SILVER) TABLET *BKC 1 TAB PO (08:00)
--- NOTE | 2020-02-04 09:33 | WPDNEUROPN ---
Progress Note: A&P Assessment and Plan (1) Chronic interstitial lung disease: Code(s): J84.9 - Interstitial pulmonary disease, unspecified Status: Acute (2) Gait disorder: Code(s): R26.9 - Unspecified abnormalities of gait and mobility Status: Acute (3) Foot drop, left: Code(s): M21.372 - Foot drop, left foot Status: Acute (4) History of total hip replacement: Code(s): Z96.649 - Presence of unspecified artificial hip joint Status: Acute (5) Adult hypothyroidism: Code(s): E03.9 - Hypothyroidism, unspecified Status: Acute (6) Iron deficiency anemia: Code(s): D50.9 - Iron deficiency anemia, unspecified Status: Acute (7) Mixed hyperlipidemia: Code(s): E78.2 - Mixed hyperlipidemia Status: Acute (8) Spinal stenosis, unspecified region other than cervical: Code(s): M48.00 - Spinal stenosis, site unspecified Status: Acute (9) Pulmonary arterial hypertension: Code(s): I27.21 - Secondary pulmonary arterial hypertension Status: Acute (10) ILD (interstitial lung disease): Code(s): J84.9 - Interstitial pulmonary disease, unspecified Status: Acute (11) Cough: Code(s): R05 - Cough Status: Acute (12) Chest pain: Code(s): R07.9 - Chest pain, unspecified Status: Acute (13) Hx of postmenopausal hormone replacement therapy: Code(s): Z92.29 - Personal history of other drug therapy Status: Acute (14) SOB (shortness of breath) on exertion: Code(s): R06.02 - Shortness of breath Status: Acute Time Spent With Patient Time: scan noted has severe spinal stenosis needs neuro surgical oppinion Review of Systems Review of Systems: All systems reviewed & are unremarkable except as noted in HPI and below Exam Const: General: cooperative, comfortable, no acute distress and well developed Nutritional Appearance: average body habitus Orientation/consciousness: patient oriented x3 Eyes: General: appearance normal, both eyes and all related structures Neck: Neck: full ROM Resp: Effort & Inspection: normal respiratory effort and able to speak in complete sentences Auscultation: clear to auscultation bilaterally Cardio: Rate: regular rate Rhythm: regular rhythm GI: Auscultation: normoactive bowel sounds Skin: General skin exam: no rashes or lesions noted Neuro: General: patient oriented x3 and CN's II-XI intact bilaterally Cranial nerves: Yes Equal, round and reactive pupils present, Yes Bilaterally intact EOM present, Yes Nystagmus not present, Yes facial symmetry, Yes Midline tongue present, Yes Symmetric palate elevation present, Yes Normal hearing present and Yes Ability to bilaterally rotate head present Cognition (Neuro): normal cognition Sensory Exam: Sensory deficit (Neuro) Deep tendon reflexes (DTR's): Right triceps reflex intensity grade: 1+, Left triceps reflex intensity grade: 1+, Rt Biceps (C5, C6): 1+, Left biceps reflex intensity grade: 1+, Right brachioradialis reflex intensity grade: 1+, Left brachioradialis reflex intensity grade: 1+, Right patellar reflex intensity grade: 1+, Left patellar reflex intensity grade: 0, Right ankle reflex intensity grade: 1+ and Left ankle reflex intensity grade: 0 Plantar Reflex Responses: downgoing: bilateral Psych: Appearance: grossly normal Objective Data Vital Signs Vital Signs: Vital Signs - 24 hr 02/03/20 12:00 02/03/20 14:00 02/03/20 16:00 Temperature 37.3 C Pulse Rate 99 90 95 Respiratory Rate 18 Blood Pressure 134/53 L Pulse Oximetry 98 02/03/20 20:00 02/03/20 22:00 02/04/20 00:00 Temperature 36.5 C Pulse Rate 87 88 80 Respiratory Rate 18 Blood Pressure 108/52 L Pulse Oximetry 96 02/04/20 04:00 02/04/20 06:00 02/04/20 08:06 Temperature 36.5 C Pulse Rate 78 88 88 Respiratory Rate 18 18 Blood Pressure 120/54 L Pulse Oximetry 97 97 Intake/Output Intake/O
[2020-02-04 10:46] LABS: Lactate Dehydrogenase 341 U/L (313-618)
[2020-02-04 10:54] LABS: Erythrocyte Sedimentation Rate 64 mm/hr (0-20)
[2020-02-04 11:14] LABS: CRP 21.8 mg/dL (<1.0)
--- NOTE | 2020-02-04 12:18 | PM.IMPN ---
Progress Note: A&P Assessment and Plan (1) Gait disorder: Code(s): R26.9 - Unspecified abnormalities of gait and mobility Status: Acute Assessment and Plan: Spinal (has severe lumbar stenosis at L2-3) vs autoimmune (myopathy, MG, PMR, paraneoplastic) vs combination Elevated CRP and platelets, microscopic hematuria, and prior elevation of KRISTINA and MPO Ab portend additional issues F/u lab CT A/P w/ contrast (2) Iron deficiency anemia: Qualifiers: Iron deficiency anemia type: unspecified iron deficiency Qualified Code(s): D50.9 - Iron deficiency anemia, unspecified Code(s): D50.9 - Iron deficiency anemia, unspecified Status: Acute Assessment and Plan: Lab suggests ACD plus Fe deficiency Stool for blood 02/03 IV iron sucrose (3) Spinal stenosis, unspecified region other than cervical: Code(s): M48.00 - Spinal stenosis, site unspecified Status: Acute Assessment and Plan: Prior surgery for thoracic stenosis Severe L2-3 stenosisis on current imaging (4) ILD (interstitial lung disease): Code(s): J84.9 - Interstitial pulmonary disease, unspecified Status: Acute Assessment and Plan: Clinically stable (5) Cough: Code(s): R05 - Cough Status: Acute Assessment and Plan: Chronic Subjective Date/time seen: 02/04/20 12:18 Interval history: Admitted 02/01 with about 3 days of gradually increased weakness and numbness in legs. Difficulty rolling over in bed. Had some jaw claudication 1-2 days ago. Chronic intermittent back pain. Denied pain in chest or abdomen. Denied worsened SOB (has chronic cough and BARR). Denied dysphagia. Denied other GI/GI changes. Denied bleeding. Review of Systems Review of Systems: All systems reviewed & are unremarkable except as noted in HPI and below Exam Narrative: Exam Narrative: HEENT: EOMI, PERRL, sclerae nonicteric, pharyngeal mucosa pink and intact NECK: No JVD, adenopathy, or thyromegaly CHEST: Clear to auscultation. Normal effort. HEART: NL S1/S2, regular, no murmur ABDOMEN: BS+, soft, nontender, no mass, no bruits EXTREMITIES: No cyanosis, edema, or clubbing. NEUROLOGIC: CN intact and symmetric to inspection. DTRs intact to BT, 1+ knees, absent ankles. Babinskis normal. MUSCULOSKELETAL: Tone and strength symmetric. Acid Washer Operator intact w/o change on repetitive movement. LE strength symmetric. Nontender joints w/o swelling. PSYCH: Alert. Oriented to person, place, and time. Anxious. Objective Data Vital Signs Vital Signs: Vital Signs - 24 hr 02/03/20 14:00 02/03/20 16:00 02/03/20 20:00 Temperature 99.1 F Pulse Rate 90 95 87 Respiratory Rate 18 Blood Pressure 134/53 L Pulse Oximetry 98 02/03/20 22:00 02/04/20 00:00 02/04/20 04:00 Temperature 97.7 F Pulse Rate 88 80 78 Respiratory Rate 18 Blood Pressure 108/52 L Pulse Oximetry 96 02/04/20 06:00 02/04/20 08:06 Temperature 97.7 F Pulse Rate 88 88 Respiratory Rate 18 18 Blood Pressure 120/54 L Pulse Oximetry 97 97 Intake/Output Intake/Output: Intake & Output 02/01/20 02/02/20 02/03/20 02/04/20 23:59 23:59 23:59 23:59 Intake Total 1720 2830 2282 Output Total 1100 1800 Balance 1720 1730 482 Meds/Results Medications: Active Medications Generic Name Dose Route Start Last Admin Trade Name Freq PRN Reason Stop Dose Admin Aspirin 81 mg 02/02/20 08:00 02/04/20 07:58 Aspirin Chewable PO 81 mg DAILY@0800 [facility] Administration Benzonatate 100 mg 02/02/20 17:19 02/04/20 08:03 Tessalon Perles PO 100 mg TID PRN Administration cough Candesartan Cilexetil 16 mg 02/03/20 09:00 02/04/20 07:58 Atacand PO 16 mg DAILY [facility] Administration Clobetasol Propionate 1 applic 02/03/20 09:00 02/04/20 07:59 Temovate 0.05% Cream TOPICAL Not Given BID [facility] Famotidine 40 mg 02/03/20 09:00 02/04/20 07:59 Pepcid PO 40 mg BID [facility] Administration Flu
[2020-02-04] MEDS: polyethylene glycoL 3350 17 GM POWD.PACK PO (16:34)
[2020-02-04] MEDS: predniSONE 20 MG TABLET PO (16:34)
[2020-02-04 20:53] LABS: EBV Nuclear Ab Interpretation Past; EBV Virus Capsid Ag IgM Ab <36.00 U/mL (<36.00)
[2020-02-05 06:00] VITALS: BP 131/54; PULSE 71; RESP 20; TEMP 36.2; O2SAT 99
[2020-02-05] MEDS: BENZONATATE 100 MG CAPSULE PO ×2 (06:00→16:52)
[2020-02-05] MEDS: LEVOTHYROXINE SODIUM 50 MCG TABLET PO (06:00)
[2020-02-05 08:32] LABS: Basophils Percent Auto 0.3 % (0.2-1.2); Eosinophils Absolute Auto 0.1 K/mm3 (0-0.3); Eosinophils Percent Auto 0.3 % (0-4.4); Hematocrit 31.5 % (37.0-47.0); Hemoglobin 9.8 g/dL (12.0-15.0); Immature Granulocyte Absolute 0.17 K/mm3 (0.00-0.031); Immature Granulocyte Percent A 1.1 % (0-0.5); Lymphocytes Absolute Auto 1.89 K/mm3 (0.9-3.2); Lymphocytes Percent Auto 12.6 % (18.3-44.2); Mean Corpuscular HGB Conc 31.1 g/dl (32-36); Mean Corpuscular Hemoglobin 26.1 pg (26-34); Mean Corpuscular Volume 83.8 fl (80-100); Mean Platelet Volume 8.6 fl (7.4-10.4); Monocytes Absolute Auto 0.3 K/mm3 (0.1-0.6); Monocytes Percent Auto 1.9 % (2.6-8.5); Neutrophils Absolute Auto 12.6 K/mm3 (1.3-6.7); Neutrophils Percent Auto 83.8 % (45.5-73.1); Platelet Count Result 680 k/mm3 (150-375); Red Blood Count 3.76 M/mm3 (4.2-5.4); Red Cell Distribution Width 13.1 % (11.5-14.5)
[2020-02-05] MEDS: FLUTICASONE PROPIONATE 0.05% NA SPR 16 GM BTL (*BKC) 1 SPRAY NASAL (08:53)
[2020-02-05] MEDS: VITAMIN E 400 UNIT CAPSULE PO (08:54)
[2020-02-05] MEDS: ASPIRIN 81 MG CHEWABLE TABLET PO (08:54)
[2020-02-05] MEDS: FAMOTIDINE 20 MG TABLET 40 MG PO ×2 (08:54→16:53)
[2020-02-05] MEDS: MULTIVITAMINS /C LUTEIN (CENTRUM SILVER) TABLET *BKC 1 TAB PO (08:54)
[2020-02-05] MEDS: predniSONE 20 MG TABLET PO (08:54)
[2020-02-05] MEDS: CANDESARTAN CILEXETIL 16 MG TABLET PO (08:54)
[2020-02-05 09:03] LABS: Alanine Aminotransferase 48 U/L (4-35); Albumin Level 3.1 g/dL (3.5-5.1); Alkaline Phosphatase 103 U/L (38-126); Aspartate Amino Transferase 64 U/L (14-36); Bilirubin,Total 0.2 mg/dL (0.2-1.3); Blood Urea Nitrogen 19 mg/dL (7-17); Calcium 8.6 mg/dL (8.4-10.2); Carbon Dioxide 22 mmol/L (22-30); Chloride 100 mmol/L (98-107); Estimated CRCL calculation 57 ml/min; Estimated Glomerular Filt Rate > 60; Glucose 117 mg/dL (65-105); Potassium 3.9 mmol/L (3.4-5.0); Sodium 133 mmol/L (137-145)
[2020-02-05 09:10] LABS: CRP 23.3 mg/dL (<1.0)
--- NOTE | 2020-02-05 11:31 | WPDNEUROPN ---
Progress Note: A&P Assessment and Plan (1) Chronic interstitial lung disease: Code(s): J84.9 - Interstitial pulmonary disease, unspecified Status: Acute (2) Gait disorder: Code(s): R26.9 - Unspecified abnormalities of gait and mobility Status: Acute (3) Foot drop, left: Code(s): M21.372 - Foot drop, left foot Status: Acute (4) History of total hip replacement: Code(s): Z96.649 - Presence of unspecified artificial hip joint Status: Acute (5) Adult hypothyroidism: Code(s): E03.9 - Hypothyroidism, unspecified Status: Acute (6) Iron deficiency anemia: Qualifiers: Iron deficiency anemia type: unspecified iron deficiency Qualified Code(s): D50.9 - Iron deficiency anemia, unspecified Code(s): D50.9 - Iron deficiency anemia, unspecified Status: Acute (7) Mixed hyperlipidemia: Code(s): E78.2 - Mixed hyperlipidemia Status: Acute (8) Spinal stenosis, unspecified region other than cervical: Code(s): M48.00 - Spinal stenosis, site unspecified Status: Acute (9) Pulmonary arterial hypertension: Code(s): I27.21 - Secondary pulmonary arterial hypertension Status: Acute (10) ILD (interstitial lung disease): Code(s): J84.9 - Interstitial pulmonary disease, unspecified Status: Acute (11) Cough: Code(s): R05 - Cough Status: Acute (12) Chest pain: Code(s): R07.9 - Chest pain, unspecified Status: Acute (13) Hx of postmenopausal hormone replacement therapy: Code(s): Z92.29 - Personal history of other drug therapy Status: Acute (14) SOB (shortness of breath) on exertion: Code(s): R06.02 - Shortness of breath Status: Acute Additional Plan all work up negatve except spina stenosis to explain left foot drop even abdominal studies ,will need NS opinion has seen Anni garcia before who did the surgery Review of Systems Review of Systems: All systems reviewed & are unremarkable except as noted in HPI and below Exam Const: General: cooperative, healthy appearing, comfortable, no acute distress, well developed, alert and awake Nutritional Appearance: average body habitus Orientation/consciousness: patient oriented x3 Limitations: no limitations HENMT: Head: normocephalic Ears: hearing grossly normal bilaterally General nose exam: Normal external nose present and No nasal discharge present Face and sinus: normal facial exam Mouth: Yes Normal oral and palatal mucosa present Eyes: General: appearance normal, both eyes and all related structures Neck: Neck: full ROM Resp: Effort & Inspection: normal respiratory effort Cardio: Rhythm: regular rhythm GI: Auscultation: normal bowel sounds Skin: General skin exam: no rashes or lesions noted Neuro: General: patient oriented x3 and moves all extremities Cranial nerves: Yes CN's II-XII intact bilaterally, Yes Equal, round and reactive pupils present, Yes Bilaterally intact EOM present, Yes Nystagmus not present, Yes Normal facial strength present, Yes Midline tongue present, Yes Symmetric palate elevation present, Yes Normal hearing present, Yes Ability to bilaterally rotate head present and Yes Ability to bilaterally elevate shoulders present Speech: normal speech Gait exam (Neuro): Unable to assess gait Motor exam (neuro): Abnormal motor strength present (left foot drop) Deep tendon reflexes (DTR's): Right triceps reflex intensity grade: 1+, Left triceps reflex intensity grade: 1+, Rt Biceps (C5, C6): 1+, Left biceps reflex intensity grade: 1+, Right brachioradialis reflex intensity grade: 1+, Left brachioradialis reflex intensity grade: 1+, Right patellar reflex intensity grade: 1+, Left patellar reflex intensity grade: 1+, Right ankle reflex intensity grade: 0 and Left ankle reflex intensity grade: 0 Plantar Reflex Responses: downgoing: bilateral Coordination: [id number] test normal Psych: Appearance: g
--- NOTE | 2020-02-05 11:38 | PM.DS ---
DS: Diagnosis Admitting Diagnosis Admitting Diagnosis: Unspecified abnormalities of gait and mobility Discharge Diagnosis (1) Gait disorder: Code(s): R26.9 - Unspecified abnormalities of gait and mobility Status: Acute Assessment and Plan: Spinal (has severe lumbar stenosis at L2-3) vs autoimmune (myopathy, MG, PMR, paraneoplastic) vs combination Elevated CRP and platelets, microscopic hematuria, and prior elevation of KRISTINA and MPO Ab portend additional issues CT A/P w/ contrast negative Improved with 20mg prednisone Needs f/u with spine surgeon (Dr. Damian) and table runner (2) Iron deficiency anemia: Qualifiers: Iron deficiency anemia type: unspecified iron deficiency Qualified Code(s): D50.9 - Iron deficiency anemia, unspecified Code(s): D50.9 - Iron deficiency anemia, unspecified Status: Acute Assessment and Plan: Lab suggests ACD plus Fe deficiency Stool for blood 02/03 IV iron sucrose Continue PO iron (3) Spinal stenosis, unspecified region other than cervical: Code(s): M48.00 - Spinal stenosis, site unspecified Status: Acute Assessment and Plan: Prior surgery for thoracic stenosis Severe L2-3 stenosisis on current imaging (4) ILD (interstitial lung disease): Code(s): J84.9 - Interstitial pulmonary disease, unspecified Status: Acute Assessment and Plan: Clinically stable (5) Cough: Code(s): R05 - Cough Status: Acute Assessment and Plan: Chronic (6) Hyponatremia: Code(s): E87.1 - Hypo-osmolality and hyponatremia Status: Acute Assessment and Plan: Improved with holding HCTZ DS: Summary Hospital Course Reason for hospitalization: Ambulatory dysfunction Hospital Course: 79-year-old female presented with difficulty ambulating. More weak on the left foot than the right. Exam showed mild left foot drop. CT examination of the cervical thoracic and lumbar spines revealed severe L2-3 lumbar spinal stenosis. Patient had previous surgery with Dr. Damian for thoracic spine stenosis. She wished to follow-up with him as an outpatient. In the meantime she received PT and OT and was doing well with that. She wished to go to [facility] because she felt unable to care for herself at home. She does live alone. In the meantime because of significantly elevated CRP at 22 and ESR at 64 with history of mild jaw claudication as well as stiffness and aches and pains and review of her labs in the past showing an elevated KRISTINA at 1 1-1280 and mildly elevated myeloperoxidase antibody she was given a trial of prednisone 20 mg on February 03. On February 04 she felt much better. The trial was continued for 1 week. This was to be reassessed by her primary physician at that point. I did convey to her physician, Dr. Bunn, that referrals to spine surgery and Rheumatology seem to be in order. Status at Discharge Functional status at discharge: uses cane/walker Overall status at discharge: patient is not back to baseline Time Spent with Patient Time attestation: Total time spent providing and/or coordinating discharge services: 38 min Exam Narrative: Exam Narrative: HEENT: EOMI, PERRL, sclerae nonicteric, pharyngeal mucosa pink and intact NECK: No JVD, adenopathy, or thyromegaly CHEST: Clear to auscultation. Normal effort. HEART: NL S1/S2, regular, no murmur ABDOMEN: BS+, soft, nontender, no mass, no bruits EXTREMITIES: No cyanosis, edema, or clubbing. NEUROLOGIC: CN intact and symmetric to inspection. DTRs intact to BT, 1+ knees, absent ankles. Babinskis normal. MUSCULOSKELETAL: Tone and strength symmetric. [employer] Supply Officer intact w/o change on repetitive movement. LE strength with left foot weak dorsiflexion. Nontender joints w/o swelling. PSYCH: Alert. Oriented to person, place, and time. DS: Data Data Completed and Pending Labs on day of discharge: Labs from last 24 hours 02/05/20 02/05/20
[2020-02-05 14:00] VITALS: BP 145/64; PULSE 83; RESP 18; TEMP 36.3; O2SAT 100
[2020-02-06 04:14] LABS: Hepatitis B Core Ab Total Nonreactive (Nonreactive)
[2020-02-06 10:32] LABS: Aldolase 6.6 U/L (<=8.1)
[2020-02-07 09:13] LABS: Myeloperoxidase Antibody 7.6 AI (<1.0)
== END 2020-02-05 18:40 | DRG 546 ==
LOC: ANHED 13:43 → ANH2MED 21:51
PROVIDERS: Nurse Practitioner; Admitting Provider Internal Medicine; Emergency Provider Emergency Medicine; PCP Internal Medicine; Visit Provider Internal Medicine
DX: M35.3 Polymyalgia rheumatica (principal); J84.9 Interstitial pulmonary disease, unspecified; E87.1 Hypo-osmolality and hyponatremia; T50.2X5A Adverse effect of carbonic-anhydrase inhibitors, benzothiadiazides and other diuretics, initial encounter; M48.061 Spinal stenosis, lumbar region without neurogenic claudication; D89.89 Other specified disorders involving the immune mechanism, not elsewhere classified; R26.9 Unspecified abnormalities of gait and mobility; M21.372 Foot drop, left foot; D50.9 Iron deficiency anemia, unspecified; E03.9 Hypothyroidism, unspecified; M19.90 Unspecified osteoarthritis, unspecified site; J44.9 Chronic obstructive pulmonary disease, unspecified; I10 Essential (primary) hypertension; K21.9 Gastro-esophageal reflux disease without esophagitis; K58.9 Irritable bowel syndrome, unspecified; E78.2 Mixed hyperlipidemia; L40.9 Psoriasis, unspecified; I27.21 Secondary pulmonary arterial hypertension; Z96.643 Presence of artificial hip joint, bilateral; Z90.710 Acquired absence of both cervix and uterus; Z90.49 Acquired absence of other specified parts of digestive tract; Z87.891 Personal history of nicotine dependence; R05 Cough
CPT/HCPCS: 36415; 51701; 70450; 71046; 72127; 72130; 72133; 74177; 80048; 80053; 81001; 82085; 82533; 82550; 82570; 82607; 82728; 82746; 83540; 83550; 83615; 83735; 84443; 84540; 85025; 85027; 85652; 86021; 86140; 86664; 86665; 86704; 86709; 86803; 87040; 87340; 93005; 93306; 93880; 96374; 96375; 97110; 97116; 97161; 97165; 97530; 97535; 99285; A9270; J1756; J2405; J7030; J7512; Q9967

== ENCOUNTER 2020-04-12 14:54 | Inpatient (IN) | payer MEDICARE, BC, SELFPAY ==
[2020-04-12] VITALS (7 sets, daily range): BP systolic 107–139; BP diastolic 45–87; PULSE 81–120; RESP 18–36; TEMP 36.6–39.5; O2SAT 96–100; BMI 24.9
--- NOTE | ~2020-04-12 | US_ITS ---
EXAMINATION: US venous doppler LE EXAM DATE: 04/13/2020 17:08 INDICATION: Shortness of breath. TECHNIQUE: Multiple grayscale, color flow and Doppler images of the lower extremity deep venous syste ms bilaterally were obtained and reviewed. Comparison is made to prior examination from 06/20/2008. FINDINGS: Right side: The right common femoral, femoral and profunda veins demonstrate normal color flow, respi ratory variation, augmentation and compressibility. Compressibility, color flow confirmed within the right popliteal, posterior tibial, peroneal, and greater saphenous veins. Left side: The left common femoral, femoral and profunda veins demonstrate normal color flow, respira tory variation, augmentation and compressibility. Compressibility, color flow confirmed within the l eft popliteal, posterior tibial, peroneal, and greater saphenous veins. IMPRESSION: 1. No lower extremity deep venous thrombosis bilaterally. Reviewed, dictated and finalized at location A.
--- NOTE | ~2020-04-12 | XR_ITS ---
EXAMINATION: XR chest 1V portable DATE: 04/14/2020 06:18 INDICATION: Cough and shortness of breath TECHNIQUE: frontal view of the chest was obtained. COMPARISON: Chest radiograph dated 04/12/2020 FINDINGS: Peripheral and lower lung predominant chronic coarse reticular opacities consistent with chronic inte rstitial lung disease. Opacities appear increased since the prior study which could be related to sup erimposed atelectasis, pneumonia or mild pulmonary edema. No pleural effusion or pneumothorax. The ca rdiomediastinal silhouette is normal. Cholecystectomy clips in right upper quadrant. Severe thoracolu mbar spondylosis. IMPRESSION: 1. Chronic interstitial lung disease with increase in the coarse interstitial pattern suggesting poss ible superimposed atelectasis, pneumonia and/or mild pulmonary edema. Reviewed, dictated and finalized at location A. IMPRESSION: 1. Chronic interstitial lung disease with increase in the coarse interstitial p attern suggesting possible superimposed atelectasis, pneumonia and/or mild pulm onary edema.
--- NOTE | ~2020-04-12 | XR_ITS ---
EXAMINATION: XR chest 1V portable EXAM DATE: 04/12/2020 15:52 INDICATION: Shortness of breath, cough, fever since yesterday. History COPD. TECHNIQUE: Portable AP frontal chest x-ray was obtained. Comparison is made to prior examination from 02/02/2020. FINDINGS: Again there are coarse bilateral interstitial opacities with lower lung zone predominant, l ikely chronic interstitial lung disease. No evidence of superimposed acute confluent consolidation, p neumothorax or pleural effusion. The cardiomediastinal silhouette is prominent but magnified on this AP technique. Cardiac silhouette is stable in size compared to prior exam. There are bony degenerativ e changes. There is no significant interval change. IMPRESSION: Moderate chronic interstitial lung disease. Reviewed, dictated and finalized at location A.
[2020-04-12] MEDS: SODIUM CHLORIDE 0.9% IV 1,000 ML 999 ML IV CONT (15:30)
[2020-04-12] MEDS: ONDANSETRON INJ 4 MG/2 ML VIAL IV PUSH (15:30)
[2020-04-12] MEDS: FAMOTIDINE 20 MG/2 ML VIAL IV PUSH ×2 (15:30→19:48)
[2020-04-12 15:41] LABS: Basophils Absolute Auto 0.1 K/mm3 (0.0-0.1); Basophils Percent Auto 0.4 % (0.2-1.2); Hematocrit 28.8 % (37.0-47.0); Hemoglobin 8.9 g/dL (12.0-15.0); Lymphocytes Absolute Auto 1.47 K/mm3 (0.9-3.2); Lymphocytes Percent Auto 7.7 % (18.3-44.2); Mean Corpuscular HGB Conc 30.9 g/dl (32-36); Mean Corpuscular Hemoglobin 25.4 pg (26-34); Mean Corpuscular Volume 82.1 fl (80-100); Mean Platelet Volume 8.8 fl (7.4-10.4); Monocytes Absolute Auto 1.3 K/mm3 (0.1-0.6); Monocytes Percent Auto 6.9 % (2.6-8.5); Neutrophils Absolute Auto 16.1 K/mm3 (1.3-6.7); Platelet Count Result 585 k/mm3 (150-375); Red Blood Count 3.51 M/mm3 (4.2-5.4); Red Cell Distribution Width 16.9 % (11.5-14.5); White Blood Count 19.2 K/mm3 (4.5-10.0)
[2020-04-12 15:48] LABS: INR 1.2; Prothrombin Time 14.6 Seconds (11.1-14.7)
[2020-04-12 15:50] LABS: Lactic Acid Reflex 1.8 mmol/L (0.7-2.1)
[2020-04-12 15:51] LABS: Add Urine Microscopic? YES; Appearance Urine Cloudy (Clear); Bacteria Urine Trace /hpf; Bilirubin Urine Negative (Negative); Color Urine Yellow (Yellow); Glucose Urine UA Negative (Negative); Ketones Urine Negative (Negative); Leukocyte Esterase Ur 3+ LEU/UL (Negative); Nitrate Urine Positive (Negative); Protein Urine 2+ mg/dL (Negative); Specific Grav Ur 1.015 (1.001-1.035); Squamous Epithelial Cell Urine Rare /hpf (Few); Urobilinogen Urine Negative mg/dL (<2.0); WBC Urine >75 /hpf
[2020-04-12 15:53] LABS: Blood Urine Negative (Negative)
[2020-04-12 15:54] LABS: Alanine Aminotransferase 10 U/L (4-35); Albumin Level 3.3 g/dL (3.5-5.1); Alkaline Phosphatase 82 U/L (38-126); Aspartate Amino Transferase 16 U/L (14-36); Bilirubin,Total 0.4 mg/dL (0.2-1.3); Blood Urea Nitrogen 16 mg/dL (7-17); Calcium 8.7 mg/dL (8.4-10.2); Carbon Dioxide 25 mmol/L (22-30); Chloride 94 mmol/L (98-107); Estimated CRCL calculation 32 ml/min; Estimated Glomerular Filt Rate 43; Glucose 156 mg/dL (65-105); Sodium 129 mmol/L (137-145)
--- NOTE | 2020-04-12 15:55 | ED.GENADULT ---
HPI - General Adult General Chief complaint: Weakness <FUAD Phillips Last Filed: 04/12/20 16:43> Stated complaint: WEAKNESS, FEVER <FUAD Phillips Last Filed: 04/12/20 16:43> Time Seen by Provider: 04/12/20 15:15 <FUAD Phillips Last Filed: 04/12/20 16:43> History of Present Illness HPI narrative: Patient is an 79-year-old female who presents from home with acute onset of nausea and vomiting throughout the night patient on arrival to emergency department notes she had multiple episodes of emesis throughout the patient the night patient denies any hematemesis rectal bleeding diarrhea. Patient notes that she has had a cough since November which has remained the same denies any change patient was recently in the hospital and placed in a nursing rehab facility but denies any known sick contacts. Patient denies similar occurrence in the past <FUAD Phillips Last Filed: 04/12/20 16:43> Related Data Home medications: Home Medications Medication Instructions Recorded Confirmed aspirin 81 mg tablet,delayed 81 mg PO HS 10/13/19 02/02/20 release twsesizn-smf-jjcbo acid 0.4 1 tablet PO DAILY 10/13/19 02/02/20 mg-lycopene 300 mcg-lutein 250 mcg tablet fluticasone propionate 50 1 spray NASAL BID 01/14/20 02/02/20 mcg/actuation nasal spray,suspension <FUAD Phillips Last Filed: 04/12/20 16:43> Allergies/adverse reactions: Allergies Allergy/AdvReac Type Severity Reaction Status Date / Time SEBASTIEN Inhibitors Allergy Unknown unknown Verified 04/12/20 15:52 ciprofloxacin Allergy Unknown unknown Verified 04/12/20 15:52 lisinopril Allergy Unknown unknown Verified 04/12/20 15:52 Sulfa (Sulfonamide AdvReac Intermediate DIARRHEA Verified 04/12/20 15:52 Antibiotics) codeine AdvReac Mild NAUSEA/VOMI Verified 04/12/20 15:52 TING decongestants AdvReac Other Uncoded 02/02/20 15:03 <FUAD Phillips Last Filed: 04/12/20 16:43> Review of Systems Review of Systems: All systems reviewed & are unremarkable except as noted in HPI and below <Oscar Damian PA-C - Last Filed: 04/12/20 16:43> [facility] Past Medical History Medical History: Medical History Adult hypothyroidism Arthritis COPD (chronic obstructive pulmonary disease) Diverticulitis Essential (primary) hypertension Gastroesophageal reflux disease without esophagitis GERD (gastroesophageal reflux disease) IBS (irritable bowel syndrome) ILD (interstitial lung disease) Iron deficiency anemia Mixed hyperlipidemia Primary osteoarthritis involving multiple joints Psoriasis Pulmonary arterial hypertension Spinal stenosis, unspecified region other than cervical <Oscar Damian PA-C - Last Filed: 04/12/20 16:43> Surgical History Surgical History: Surgical History H/O: hysterectomy History of back surgery History of bladder surgery History of right hip replacement History of total hip replacement Hx of cholecystectomy <Oscar Damian PA-C - Last Filed: 04/12/20 16:43> Family History Family History: Family History (Updated 02/02/20 @ 17:36 by Scarlet Puckett NP) Mother Cerebrovascular accident Father Acute myocardial infarction Sibling Heart disease <Oscar Damian PA-C - Last Filed: 04/12/20 16:43> Social History Social History: Social History Social History: The patient quit smoking about 35 years ago. 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 The patient has 2 children. She is and she lives alone. She desires to be a full code and does not have a power of state's attorney. Smoking status: Former smoker Smoking end date: 11/05/84 Alcohol intake: never Substance use: never Gender identity (if ve
[2020-04-12 16:03] LABS: CRP 23.5 mg/dL (<1.0)
[2020-04-12] MEDS: LACTATED RINGERS 1,000 ML 999 ML IV CONT (16:58)
[2020-04-12] MEDS: LACTATED RINGERS 1,000 ML 125 ML IV CONT (18:21)
[2020-04-12 21:31] LABS: Sodium 129 mmol/L (137-145)
[2020-04-13] VITALS (7 sets, daily range): BP systolic 108–152; BP diastolic 45–100; PULSE 61–102; RESP 16–24; TEMP 36.5–38.7; O2SAT 92–98; BMI 24.9
[2020-04-13] MEDS: LACTATED RINGERS 1,000 ML 125 ML IV CONT (02:06)
[2020-04-13 06:31] LABS: Basophils Percent Auto 0.2 % (0.2-1.2); Hematocrit 23.6 % (37.0-47.0); Hemoglobin 7.3 g/dL (12.0-15.0); Immature Granulocyte Absolute 0.23 K/mm3 (0.00-0.031); Immature Granulocyte Percent A 1.2 % (0-0.5); Lymphocytes Absolute Auto 1.59 K/mm3 (0.9-3.2); Lymphocytes Percent Auto 8.2 % (18.3-44.2); Mean Corpuscular HGB Conc 30.9 g/dl (32-36); Mean Corpuscular Hemoglobin 25.3 pg (26-34); Mean Corpuscular Volume 81.9 fl (80-100); Mean Platelet Volume 8.5 fl (7.4-10.4); Monocytes Percent Auto 5.3 % (2.6-8.5); Neutrophils Absolute Auto 16.5 K/mm3 (1.3-6.7); Neutrophils Percent Auto 85.1 % (45.5-73.1); Platelet Count Result 445 k/mm3 (150-375); Red Blood Count 2.88 M/mm3 (4.2-5.4); Red Cell Distribution Width 16.8 % (11.5-14.5); White Blood Count 19.4 K/mm3 (4.5-10.0)
[2020-04-13 06:43] LABS: Blood Urea Nitrogen 15 mg/dL (7-17); Carbon Dioxide 24 mmol/L (22-30); Chloride 100 mmol/L (98-107); Estimated CRCL calculation 35 ml/min; Estimated Glomerular Filt Rate 48; Glucose 131 mg/dL (65-105); Potassium 3.9 mmol/L (3.4-5.0); Sodium 129 mmol/L (137-145)
[2020-04-13] MEDS: FAMOTIDINE 20 MG/2 ML VIAL IV PUSH (08:18)
--- NOTE | 2020-04-13 09:17 | PM.IMHP ---
H&P: HPI History of Present Illness Chief complaint: Urinary tract infection/dehydration Narrative: Aryan Nick is a 79 year old female who presented to the hospital with nausea and vomiting since yesterday, she also had a fever of 103 F at home . Denies diarrhea , no SOB, no chest pain, no urinary symptoms, no frequency no dysuria, no suprapubic pain. She reports a dry cough yesterday which she states was more severe than her regular cough given her ILD, her cough is better this morning. She abdominal pain, no hematemesis, no melena. No sick contacts, she lives by herself. Review of Systems Review of Systems: All systems reviewed & are unremarkable except as noted in HPI and below (HPI) [facility] Past Medical History Medical History (Updated 04/13/20 @ 10:09 by Watson Yoon MD) Adult hypothyroidism Arthritis COPD (chronic obstructive pulmonary disease) Diverticulitis Essential (primary) hypertension Gastroesophageal reflux disease without esophagitis GERD (gastroesophageal reflux disease) Hypertension IBS (irritable bowel syndrome) ILD (interstitial lung disease) Iron deficiency anemia Mixed hyperlipidemia Primary osteoarthritis involving multiple joints Psoriasis Pulmonary arterial hypertension Spinal stenosis, unspecified region other than cervical Surgical History Surgical History H/O: hysterectomy History of back surgery History of bladder surgery History of right hip replacement History of total hip replacement Hx of cholecystectomy Family History Family History Mother Cerebrovascular accident Father Acute myocardial infarction Sibling Heart disease Social History Social History Social History: The patient quit smoking about 35 years ago. 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 The patient has 2 children. She is and she lives alone. She desires to be a full code and does not have a power of trial attorney. She denies alcohol and illicit drugs. Smoking status: Former smoker Smoking end date: 11/05/84 Alcohol intake: current Substance use: current Gender identity (if verbalized by the patient): Female Spiritual care concerns: No Agree to blood products: Yes Meds Home Medications and Allergies Home Medications Medication Instructions Recorded Confirmed Type aspirin 81 mg tablet,delayed 81 mg PO HS 10/13/19 04/12/20 History release cqxzvydv-ndk-smczh acid 0.4 1 tablet PO DAILY 10/13/19 04/12/20 History mg-lycopene 300 mcg-lutein 250 mcg tablet candesartan 16 mg tablet 16 mg PO DAILY #90 tablet 12/10/19 04/12/20 Rx levothyroxine 50 mcg tablet 50 mcg PO DAILY #90 tablet 12/10/19 04/12/20 Rx flurbiprofen 100 mg tablet 100 mg PO BID #60 tablet 02/16/20 04/12/20 Rx albuterol sulfate 90 mcg/actuation 2 inhalation INHALATION Q4H PRN 03/10/20 04/12/20 Rx aerosol inhaler #8.5 gm benzonatate 100 mg capsule 100 mg PO TID PRN #60 cap 03/26/20 04/12/20 Rx clobetasol 1 applic TOPICAL BID PRN 04/12/20 04/12/20 History famotidine 40 mg PO DAILY 04/12/20 04/12/20 History Allergies Allergy/AdvReac Type Severity Reaction Status Date / Time SEBASTIEN Inhibitors Allergy Unknown unknown Verified 04/12/20 15:52 ciprofloxacin Allergy Unknown unknown Verified 04/12/20 15:52 lisinopril Allergy Unknown unknown Verified 04/12/20 15:52 Sulfa (Sulfonamide AdvReac Intermediate DIARRHEA Verified 04/12/20 15:52 Antibiotics) codeine AdvReac Mild NAUSEA/VOMI Verified 04/12/20 15:52 TING decongestants AdvReac Other Uncoded 02/02/20 15:03 Vital Signs Vital Signs - 24 hr 04/12/20 14:58 04/12/20 15:00 04/12/20 15:23 Temperature 103.1 F H 103 F H 103 F H Pulse Rate 119 H 120 H 114 H Respiratory Rate 28 H 30 H 36 H Blood Pressure 139/75 135/79 124/87 Puls
[2020-04-13] MEDS: SODIUM CHLORIDE 0.9% IV 1,000 ML 100 ML IV CONT (10:43)
[2020-04-13 11:01] LABS: Sodium Urine Random 25 meq/L
[2020-04-13 11:11] LABS: Thyroid Stimulating Hormone Reflex 0.885 uIU/mL (0.465-4.68)
[2020-04-13] MEDS: LEVOTHYROXINE SODIUM 50 MCG TABLET PO (13:12)
[2020-04-13] MEDS: HEPARIN SODIUM 5,000 UNITS/ML VIAL 5000 UNITS SUB-Q ×2 (13:12→21:43)
[2020-04-13] MEDS: BENZONATATE 100 MG CAPSULE PO (13:21)
[2020-04-13 13:44] LABS: D Dimer 7.75 ug/mL (<0.48)
[2020-04-13] MEDS: CANDESARTAN CILEXETIL 16 MG TABLET PO (14:40)
[2020-04-13 14:41] LABS: SARS-CoV-2 RNA PCR Negative
--- NOTE | 2020-04-13 15:15 | PC.NURSE ---
Pt COVID serology is negative. Tried to notify Louis, but he had already put in a repeat swab to ensure she was not a false negative. Kept pt on isolation and informed charge to inform house sup of need for swab collection.
[2020-04-13] MEDS: ACETAMINOPHEN 325 MG TABLET 650 MG PO (20:01)
[2020-04-13] MEDS: ASPIRIN 81 MG ENTERIC TABLET PO (20:01)
[2020-04-14] VITALS (12 sets, daily range): BP systolic 111–150; BP diastolic 60–80; PULSE 78–104; RESP 20–22; TEMP 36.8–38.4; O2SAT 95–98
[2020-04-14] MEDS: SODIUM CHLORIDE 0.9% IV 1,000 ML 100 ML IV CONT ×2 (01:40→09:17)
[2020-04-14] MEDS: HEPARIN SODIUM 5,000 UNITS/ML VIAL 5000 UNITS SUB-Q ×3 (04:58→21:00)
[2020-04-14] MEDS: LEVOTHYROXINE SODIUM 50 MCG TABLET PO (04:59)
[2020-04-14 06:40] LABS: Basophils Absolute Auto 0.1 K/mm3 (0.0-0.1); Basophils Percent Auto 0.5 % (0.2-1.2); Eosinophils Percent Auto 0.3 % (0-4.4); Hemoglobin 7.7 g/dL (12.0-15.0); Immature Granulocyte Absolute 0.09 K/mm3 (0.00-0.031); Immature Granulocyte Percent A 0.7 % (0-0.5); Lymphocytes Absolute Auto 2.08 K/mm3 (0.9-3.2); Lymphocytes Percent Auto 16.6 % (18.3-44.2); Mean Corpuscular HGB Conc 29.6 g/dl (32-36); Mean Corpuscular Hemoglobin 25.4 pg (26-34); Mean Corpuscular Volume 85.8 fl (80-100); Mean Platelet Volume 8.8 fl (7.4-10.4); Monocytes Percent Auto 8.3 % (2.6-8.5); Neutrophils Absolute Auto 9.2 K/mm3 (1.3-6.7); Neutrophils Percent Auto 73.6 % (45.5-73.1); Platelet Count Result 427 k/mm3 (150-375); Red Blood Count 3.03 M/mm3 (4.2-5.4); Red Cell Distribution Width 17.1 % (11.5-14.5); White Blood Count 12.5 K/mm3 (4.5-10.0)
[2020-04-14 06:50] LABS: Blood Urea Nitrogen 15 mg/dL (7-17); Calcium 7.7 mg/dL (8.4-10.2); Carbon Dioxide 21 mmol/L (22-30); Chloride 102 mmol/L (98-107); Estimated CRCL calculation 47 ml/min; Estimated Glomerular Filt Rate > 60; Glucose 86 mg/dL (65-105); Potassium 3.6 mmol/L (3.4-5.0); Sodium 130 mmol/L (137-145)
--- NOTE | 2020-04-14 07:28 | PM.IMPN ---
Progress Note: A&P Assessment and Plan (1) Sepsis: Qualifiers: Sepsis acute organ dysfunction status: without acute organ dysfunction Sepsis type: sepsis due to unspecified organism Qualified Code(s): A41.9 - Sepsis, unspecified organism Code(s): A41.9 - Sepsis, unspecified organism Status: Acute Assessment and Plan: Likely from a urinary source, urine cultures are growing klebsiella that is susceptible to ceftriaxone day #2. Hemodynamically stable lactic acid is normal. White blood cell count has improved , no need for further imaging of the abdomen looking for a perinephric abscess unless she continues to have fever for more than 48 hrs or deteriorates clinically. (2) Bacteremia: Code(s): R78.81 - Bacteremia Status: Acute Assessment and Plan: BC growing gram negative bacilli. On ceftriaxone day 2. (3) COVID-19 ruled out: Code(s): Z03.818 - Encounter for observation for suspected exposure to other biological agents ruled out Status: Acute Assessment and Plan: First PCR came back negative, we sent another one because we did not have a good explanation for the fever until we received the blood cultures. If second PCR is negative isolation can be discontinued. CRP and d dimer were elevated likely due to the underlying sepsis, lower extremity dopplers negative for DVT. No need for cta since Well's score is low, clinically a PE is unlikely. (4) Acute dehydration: Code(s): E86.0 - Dehydration Status: Acute Assessment and Plan: Improved, stop Iv fluids. (5) Urinary tract infection: Qualifiers: Hematuria presence: without hematuria Urinary tract infection type: acute cystitis Qualified Code(s): N30.00 - Acute cystitis without hematuria Code(s): N39.0 - Urinary tract infection, site not specified Status: Acute Assessment and Plan: Urine cultures are growing klebsiella that is susceptible to ceftriaxone day #2 (6) FRANTZ (acute kidney injury): Code(s): N17.9 - Acute kidney failure, unspecified Status: Acute Assessment and Plan: Likely due to dehydration , resolved. 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 (9) Iron deficiency anemia: Qualifiers: Iron deficiency anemia type: unspecified iron deficiency Qualified Code(s): D50.9 - Iron deficiency anemia, unspecified Code(s): D50.9 - Iron deficiency anemia, unspecified Status: Chronic Assessment and Plan: No active bleeding, Hb is stable. (10) ILD (interstitial lung disease): Code(s): J84.9 - Interstitial pulmonary disease, unspecified Status: Chronic Assessment and Plan: Stable. Subjective Date/time seen: 04/14/20 07:28 Feels better this morning, c/o weakness and lack of appetite. Highest temp last night 101.3 F. Review of Systems Review of Systems: All systems reviewed & are unremarkable except as noted in HPI and below Exam Const: General: no acute distress Neck: Neck: supple and no JVD Resp: Effort & Inspection: normal respiratory effort Auscultation: clear to auscultation bilaterally and diminished lung sounds Cardio: Rate: regular rate Rhythm: regular rhythm Other: No bradycardia or tachycardia. GI: GI Palp: Yes Soft to palpation Percussion: Yes normal to percussion Auscultation: normal bowel sounds Skin: General skin exam: normal color and no rashes or lesions noted Neuro: Cognition (Neuro): normal cogniti
[2020-04-14] MEDS: BENZONATATE 100 MG CAPSULE PO ×2 (09:03→18:47)
[2020-04-14] MEDS: FAMOTIDINE 20 MG TABLET 40 MG PO (09:04)
[2020-04-14] MEDS: ACETAMINOPHEN 325 MG TABLET 650 MG PO ×2 (09:04→18:46)
[2020-04-14] MEDS: CANDESARTAN CILEXETIL 16 MG TABLET PO (09:04)
--- NOTE | 2020-04-14 10:10 | PCOTNOTE ---
Hold therapy evaluation until COVID results are documented. Will evaluate when medically appropriate.
--- NOTE | 2020-04-14 10:11 | PCPTNOTE ---
Hold PT evaluation until COVID 19 results documented. Will evaluate when medically appropriate.
[2020-04-14 12:58] LABS: SARS-CoV-2 RNA PCR Negative
--- NOTE | 2020-04-14 14:09 | PC.NURSE ---
yesterday, pt's covid test came back negative, but tono feels her test is a false negative. he reordered covid test. je collected her specimen and we sent it to the lab approximately 1900. pt's result came back as negative again. informed pt who stated that was incorrect because no one had swabbed her. i recalled yesterday's events and timeline and reminded her that she had a fever at that time. she was outraged that we would have swabbed her without her consent. she states that dr power told her this morning she was going to be swabbed a second time. i let her know he was probably referencing the need for a second test as he had not seen her since the first results came back. i told her that we let her know what was happening and je would not have performed the swab if she were refusing. she asked for his last name. i tried to readdress that she was negative, that some confusion may have been due to fever/bactremia. she appeared somewhat more calm, but she is still not happy. i let dr power know pt's confusion/unhappiness about the situation. he said he would stop by and see her if she wanted.
[2020-04-14] MEDS: ALBUTEROL SULFATE (*SP) AEROSOL 1 PUFF 2 PUFF INHALATION (16:38)
--- NOTE | 2020-04-14 18:34 | PC.NURSE ---
pt has had two attempts at urinating and was unable to go. i bladder scanned pt which showed only 100 mls in her bladder. pt concerned. i informed her that i would share this info with night rn.
[2020-04-14] MEDS: ASPIRIN 81 MG ENTERIC TABLET PO (20:53)
[2020-04-15] VITALS (7 sets, daily range): BP systolic 129–135; BP diastolic 58–69; PULSE 83–102; RESP 18–20; TEMP 36.5–37.2; O2SAT 96–99
[2020-04-15] MEDS: LEVOTHYROXINE SODIUM 50 MCG TABLET PO (05:37)
[2020-04-15] MEDS: HEPARIN SODIUM 5,000 UNITS/ML VIAL 5000 UNITS SUB-Q ×3 (05:39→21:52)
[2020-04-15 07:05] LABS: Basophils Absolute Auto 0.1 K/mm3 (0.0-0.1); Basophils Percent Auto 0.5 % (0.2-1.2); Eosinophils Absolute Auto 0.3 K/mm3 (0-0.3); Eosinophils Percent Auto 3.5 % (0-4.4); Hematocrit 25.8 % (37.0-47.0); Hemoglobin 7.8 g/dL (12.0-15.0); Immature Granulocyte Absolute 0.05 K/mm3 (0.00-0.031); Immature Granulocyte Percent A 0.5 % (0-0.5); Lymphocytes Absolute Auto 1.41 K/mm3 (0.9-3.2); Lymphocytes Percent Auto 15.2 % (18.3-44.2); Mean Corpuscular HGB Conc 30.2 g/dl (32-36); Mean Corpuscular Hemoglobin 25.4 pg (26-34); Mean Platelet Volume 8.6 fl (7.4-10.4); Monocytes Absolute Auto 0.8 K/mm3 (0.1-0.6); Monocytes Percent Auto 8.3 % (2.6-8.5); Neutrophils Absolute Auto 6.7 K/mm3 (1.3-6.7); Platelet Count Result 435 k/mm3 (150-375); Red Blood Count 3.07 M/mm3 (4.2-5.4); Red Cell Distribution Width 17.1 % (11.5-14.5); White Blood Count 9.3 K/mm3 (4.5-10.0)
[2020-04-15 07:26] LABS: Blood Urea Nitrogen 13 mg/dL (7-17); Calcium 7.7 mg/dL (8.4-10.2); Carbon Dioxide 27 mmol/L (22-30); Chloride 100 mmol/L (98-107); Estimated CRCL calculation 47 ml/min; Estimated Glomerular Filt Rate > 60; Glucose 82 mg/dL (65-105); Potassium 3.5 mmol/L (3.4-5.0); Sodium 130 mmol/L (137-145)
[2020-04-15] MEDS: CANDESARTAN CILEXETIL 16 MG TABLET PO (08:10)
[2020-04-15] MEDS: FAMOTIDINE 20 MG TABLET 40 MG PO (08:11)
[2020-04-15] MEDS: BENZONATATE 100 MG CAPSULE PO (08:32)
[2020-04-15 10:28] LABS: CRP 23.7 mg/dL (<1.0)
--- NOTE | 2020-04-15 14:31 | WPDINFPN2 ---
Progress Note: A&P Assessment and Plan (1) Urinary tract infection: Qualifiers: Hematuria presence: without hematuria Urinary tract infection type: acute cystitis Qualified Code(s): N30.00 - Acute cystitis without hematuria Code(s): N39.0 - Urinary tract infection, site not specified Status: Acute Assessment and Plan: 1. Rigors due to Klebsiella bacteremia with infection, urine source 2. Weight loss, autoimmune? 3. ILD 4. Multiple allergies 5. Spinal stenosis with L foot drop REC Ctx # 2, continue at least through 04/18. No isolation. Not in need of urinary imaging for now, done in the spring. Subjective Date/time seen: 04/15/20 14:31 Objective Data Vital Signs Vital Signs: Vital Signs - 24 hr 04/14/20 16:38 04/14/20 18:00 04/14/20 18:46 Temperature 37.6 C H 37.6 C H Pulse Rate 94 100 Respiratory Rate 20 22 H Blood Pressure 118/80 Pulse Oximetry 96 04/14/20 20:50 04/14/20 22:00 04/15/20 02:00 Temperature 37.9 C H 37.4 C 36.8 C Pulse Rate 90 83 Respiratory Rate 22 H 20 Blood Pressure 121/60 131/61 Pulse Oximetry 96 98 04/15/20 06:38 04/15/20 08:00 04/15/20 10:07 Temperature 36.5 C 37.0 C Pulse Rate 83 97 93 Respiratory Rate 20 20 20 Blood Pressure 134/69 129/58 L Pulse Oximetry 97 97 97 Intake/Output Intake/Output: Intake & Output 04/12/20 04/13/20 04/14/20 04/15/20 23:59 23:59 23:59 23:59 Intake Total 2150 4300 2630 690 Output Total 1400 1450 1150 Balance 2150 2900 1180 -460 Meds/Results Medications: Active Medications Generic Name Dose Route Start Last Admin Trade Name Freq PRN Reason Stop Dose Admin Acetaminophen 650 mg 04/13/20 18:46 04/14/20 18:46 Tylenol Tablet PO 650 mg Q6H PRN Administration Mild Pain (1-3) or Fever Albuterol 2 puff 04/13/20 09:04 04/14/20 16:38 Proventil Hfa INHALATION 2 puff Q4H PRN Administration shortness of breath or wheezing Aspirin 81 mg 04/13/20 21:00 04/14/20 20:53 Aspirin Ec PO 81 mg HS LUZ MARINA Administration Benzonatate 100 mg 04/13/20 09:00 04/15/20 08:32 Tessalon Perles PO 100 mg TID PRN Administration cough Candesartan Cilexetil 16 mg 04/13/20 13:50 04/15/20 08:10 Atacand PO 16 mg DAILY LUZ MARINA Administration Clobetasol Propionate 1 applic 04/13/20 09:04 Temovate 0.05% Cream TOPICAL BID PRN Rash Famotidine 40 mg 04/14/20 09:00 04/15/20 08:11 Pepcid PO 40 mg DAILY LUZ MARINA Administration Heparin Sodium (Porcine) 5,000 units 04/13/20 14:00 04/15/20 05:39 Heparin Sodium SUB-Q 5,000 units Q8HR LUZ MARINA Administration Ceftriaxone Sodium/Dextrose 1 gm in 50 mls @ 100 mls/hr 04/13/20 16:00 04/14/20 19:41 Rocephin 1 Gm/D5w 50 Ml IVPB Infused Q24H LUZ MARINA Infusion Levothyroxine Sodium 50 mcg 04/13/20 09:10 04/15/20 05:37 Synthroid PO 50 mcg DAILY@0630 LUZ MARINA Administration Ondansetron HCl 4 mg 04/12/20 16:43 Zofran Inj IV PUSH Q4H PRN Nausea Radiology Results: ITS Impressions Venous Doppler Study 04/13/20 17:14 IMPRESSION: 1. No lower extremity deep venous thrombosis bilaterally. Chest X-Ray 04/14/20 07:10 IMPRESSION: 1. Chronic interstitial lung disease with increase in the coarse interstitial pattern suggesting possible superimposed atelectasis, pneumonia and/or mild pulmonary edema. Labs Labs: Laboratory Results - last 24 hr 04/15/20 04/15/20 04/15/20 06:54 06:57 06:57 WBC 9.3 RBC 3.07 L Hgb 7.8 L Hct 25.8 L MCV 84.0 MCH 25.4 L MCHC 30.2 L RDW 17.1 H Plt Count 435 H MPV 8.6 Immature Gran % (Auto) 0.5 Neut % (Auto) 72.0 Lymph % (Auto) 15.2 L Emery % (Auto) 8.3 Eos % (Auto) 3.5 Baso % (Auto) 0.5 Lymph # (Auto) 1.41 Emery # (Auto) 0.8 H Eos # (Auto) 0.3 Baso # (Auto) 0.1 Abs Immat Gran (auto) 0.05 H Absolute Neuts (auto) 6.7 Absolute Nucleated RBC 0.0 Nucleate
--- NOTE | 2020-04-15 16:43 | PM.IMPN ---
Progress Note: A&P Assessment and Plan (1) Sepsis: Qualifiers: Sepsis acute organ dysfunction status: without acute organ dysfunction Sepsis type: sepsis due to unspecified organism Qualified Code(s): A41.9 - Sepsis, unspecified organism Code(s): A41.9 - Sepsis, unspecified organism Status: Acute Assessment and Plan: Likely from a urinary source, urine cultures are growing klebsiella that is susceptible to ceftriaxone day #2. Hemodynamically stable lactic acid is normal. White blood cell count has improved , no need for further imaging of the abdomen looking for a perinephric abscess unless she continues to have fever for more than 48 hrs or deteriorates clinically. 04/15/20 16:43 Patient is 79-year-old female presented emergency department with generalized weakness difficulty with ambulation see was found to have UTI as well as sepsis and blood and urine culture is growing Klebsiella pneumonia sensitive to Rocephin being treated #3, patient is seen by Dr. tucker recommended to continue antibiotics for additional 4 days total of 7 days. Patient states still feels tired and fatigued but denies any fever or chills denies any abdominal pain nausea or vomiting. Patient was able to participate in PT OT, I was concerned though patient COVID-19 test was negative 2x, her chest x-ray elevated CRP and D-dimer however Dr. tucker does not suspect the patient is a COVID-19 patient is not isolated. (2) Bacteremia: Code(s): R78.81 - Bacteremia Status: Acute Assessment and Plan: BC growing gram negative bacilli. On ceftriaxone day 3/7. (3) COVID-19 ruled out: Code(s): Z03.818 - Encounter for observation for suspected exposure to other biological agents ruled out Status: Acute Assessment and Plan: First PCR came back negative, we sent another one because we did not have a good explanation for the fever until we received the blood cultures. If second PCR is negative isolation can be discontinued. CRP and d dimer were elevated likely due to the underlying sepsis, lower extremity dopplers negative for DVT. No need for cta since Well's score is low, clinically a PE is unlikely. (4) Acute dehydration: Code(s): E86.0 - Dehydration Status: Acute Assessment and Plan: Improved, stop Iv fluids. (5) Urinary tract infection: Qualifiers: Hematuria presence: without hematuria Urinary tract infection type: acute cystitis Qualified Code(s): N30.00 - Acute cystitis without hematuria Code(s): N39.0 - Urinary tract infection, site not specified Status: Acute Assessment and Plan: Urine cultures are growing klebsiella that is susceptible to ceftriaxone day #3 (6) FRANTZ (acute kidney injury): Code(s): N17.9 - Acute kidney failure, unspecified Status: Acute Assessment and Plan: Likely due to dehydration , resolved. 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 (9) Iron deficiency anemia: Qualifiers: Iron deficiency anemia type: unspecified iron deficiency Qualified Code(s): D50.9 - Iron deficiency anemia, unspecified Code(s): D50.9 - Iron deficiency anemia, unspecified Status: Chronic Assessment and Plan: No active bleeding, Hb is stable. (10) ILD (interstitial lung disease): Code(s): J84.9 - Interstitial pulmonary disease, unspecified Status: Chronic Assessment and Plan: Stable. Subjective Date/time seen: 04/15/20 16:
--- NOTE | 2020-04-15 17:09 | PCDIET ---
Nutrition Follow-Up Complete: Inadequate oral intake R/T reduced appetite as evidence by mild wt loss PO intake of 75% of meals and supplements to maintain wt Goal:Progressing towards goal. Continue current goal. Pt current nutrition is Regular+compact BID. Nutrition recommendation: Agree Last recorded weight is 72.1 kg (recommend new wt) Bowel Motility: None noted Labs Reviewed:23.7 c reactive, Na 130 Meds Noted:Zofran, Synthroid, Heparin Additional Notes: Pt states appetite is poor. She denies N/V, just states not hungry. She began feeling this way at beginning of February with current illness. She states since that time she has lost 40lbs. She is drinking carnation instant breakfast each morning. She is drinking compact BID here. One Ensure compact provides 220 kcal, 9 g protein, 32g CHO, 26 essential vitamins and minerals, and is an excellent source of plant based omega 3 fatty acids ALA. PO intake currently is averaging 34%. Supplements encouraged at home. Pt also encouraged to snack and nibble often throughout the day to help stimulate appetite. We will follow po intake and wt every five days.
--- NOTE | 2020-04-15 19:21 | CONS_ITS ---
DATE OF CONSULTATION: REASON FOR CONSULTATION: Positive blood cultures and fever. HISTORY OF PRESENT ILLNESS: The patient is an 79-year-old female who has interstitial lung disease followed by Dr. Medley. She was here in the hospital in late January or early February with left footdrop and then went to a SNF briefly. While here, she was noted to have a markedly elevated KRISTINA and also a myeloperoxidase antibody. She did receive 7 days of prednisone here and as an outpatient immediately after with improvement in her symptoms. She was to see Rheumatology, but it is not clear if this has been accomplished yet. She also has a spinal surgeon who previously did operate for thoracic spine stenosis. The patient was otherwise in her usual state of health, without any recent steroids, until the day of admission when she awoke to use the restroom. She felt markedly weak and barely got back to bed. She then had rigors and a temperature into the 38 range. She presented to the hospital here and was admitted. She has been febrile here, on arrival was at 39.5 and the last 24 hours T-max 37.9. The patient also had a single episode of vomiting that has now resolved. In the last several months, she has lost some 45 pounds of weight as food does not taste right for her. No prior weight loss. She has had no previous urinary tract instrumentation of any kind. No history of kidney stones. She had no cystitis symptoms prior to admission. She does have a right total hip arthroplasty, otherwise no implants. ALLERGIES: CIPROFLOXACIN AND SULFA, UNKNOWN REACTIONS. PRESENT MEDICATIONS: List reviewed. No immunosuppressants. PAST MEDICAL HISTORY: Hypothyroidism, COPD, diverticulitis in the past, hypertension, GERD, IBS, iron deficiency anemia, hyperlipidemia, osteoarthritis, psoriasis, PAH, hysterectomy, and cholecystectomy. Chart indicates a bladder surgery, but the patient did not recall. REVIEW OF SYSTEMS: 14-point review otherwise negative. FAMILY HISTORY: Stroke, [place]. SOCIAL HISTORY: She is retired, . Children locally. HABITS: Ex-smoker. Social drinker. PHYSICAL EXAMINATION: GENERAL: This is an elderly female who appears her actual age. No acute distress. VITAL SIGNS: T-max as above. Saturation 97%, 93, 20, 129/58. SKIN: No generalized rashes. Warm and dry. EENT: The conjunctivae are normal. The oral mucosa is also normal. NECK: No masses or meningismus. LUNGS: Clear to auscultation and percussion. CARDIAC: Regular rate and rhythm without murmur, gallop, or rub. ABDOMEN: Soft, nontender. No organomegaly. No masses. BACK: She has no CVAT. EXTREMITIES: No clubbing, cyanosis, or edema. Well perfused. LABORATORY DATA: White count on arrival was 19.2, now down to 9.3, hemoglobin 7.8, which is stable. Platelets are 435. Differential, minimal left shift. She has persistent hyponatremia. Electrolytes otherwise normal. Liver function tests normal except for an albumin 3.3. CRP 23.7. Her urinalysis is yellow, cloudy, 7.0, 1.015, 2+ protein, positive nitrite, 3+ leukocyte esterase, 11-20 red cells, greater than 75 white cells. She has had 2 COVID assays, both nonreactive. RADIOLOGY: Previous abdomen and pelvic CT showed a kidney cyst, diverticulosis, right total hip arthroplasty, spondylosis, and CT findings of chronic ILD. Chest x-ray, same findings. No acute change. ASSESSMENT: 1. Fever due to klebsiella bacteremia with infection, in turn due to urinary tract infection. She had no cystitis symptoms, I suspect this is upper tract in nature. Possibility remains of an infected kidney cyst, but doubt renal abscess. Other sources of bacteremia such as pulmonary, endovascular, diverticular are less likely. Other causes of her fever are unlikely including
[2020-04-15] MEDS: ASPIRIN 81 MG ENTERIC TABLET PO (21:52)
[2020-04-16 02:00] VITALS: BP 118/49; PULSE 88; RESP 20; TEMP 37.5; O2SAT 97
[2020-04-16 05:08] LABS: Osmolality, Urine 162 mOsm/kg (50-1200)
[2020-04-16] MEDS: HEPARIN SODIUM 5,000 UNITS/ML VIAL 5000 UNITS SUB-Q ×3 (05:31→21:48)
[2020-04-16] MEDS: LEVOTHYROXINE SODIUM 50 MCG TABLET PO (05:31)
[2020-04-16 06:43] VITALS: BP 122/89; PULSE 99; RESP 20; TEMP 37.2; O2SAT 98
[2020-04-16 07:40] LABS: Basophils Absolute Auto 0.1 K/mm3 (0.0-0.1); Basophils Percent Auto 0.7 % (0.2-1.2); Eosinophils Absolute Auto 0.2 K/mm3 (0-0.3); Eosinophils Percent Auto 1.8 % (0-4.4); Hematocrit 24.4 % (37.0-47.0); Hemoglobin 7.4 g/dL (12.0-15.0); Immature Granulocyte Absolute 0.04 K/mm3 (0.00-0.031); Immature Granulocyte Percent A 0.4 % (0-0.5); Lymphocytes Absolute Auto 1.49 K/mm3 (0.9-3.2); Lymphocytes Percent Auto 15.7 % (18.3-44.2); Mean Corpuscular HGB Conc 30.3 g/dl (32-36); Mean Corpuscular Hemoglobin 25.2 pg (26-34); Mean Platelet Volume 8.8 fl (7.4-10.4); Monocytes Absolute Auto 0.8 K/mm3 (0.1-0.6); Monocytes Percent Auto 8.6 % (2.6-8.5); Neutrophils Absolute Auto 6.9 K/mm3 (1.3-6.7); Neutrophils Percent Auto 72.8 % (45.5-73.1); Platelet Count Result 424 k/mm3 (150-375); Red Blood Count 2.94 M/mm3 (4.2-5.4); Red Cell Distribution Width 16.9 % (11.5-14.5); White Blood Count 9.5 K/mm3 (4.5-10.0)
[2020-04-16 07:52] LABS: Alanine Aminotransferase 13 U/L (4-35); Albumin Level 2.4 g/dL (3.5-5.1); Alkaline Phosphatase 85 U/L (38-126); Aspartate Amino Transferase 28 U/L (14-36); Bilirubin,Total 0.2 mg/dL (0.2-1.3); Blood Urea Nitrogen 11 mg/dL (7-17); Calcium 7.5 mg/dL (8.4-10.2); Carbon Dioxide 28 mmol/L (22-30); Chloride 97 mmol/L (98-107); Estimated CRCL calculation 47 ml/min; Estimated Glomerular Filt Rate > 60; Glucose 95 mg/dL (65-105); Potassium 3.7 mmol/L (3.4-5.0); Sodium 127 mmol/L (137-145)
[2020-04-16] MEDS: FAMOTIDINE 20 MG TABLET 40 MG PO (08:00)
[2020-04-16] MEDS: CANDESARTAN CILEXETIL 16 MG TABLET PO (08:01)
[2020-04-16] MEDS: BENZONATATE 100 MG CAPSULE PO ×2 (08:01→21:50)
[2020-04-16 10:00] VITALS: BP 127/57; PULSE 95; RESP 16; TEMP 36.6; O2SAT 100
[2020-04-16] MEDS: SODIUM CHLORIDE 500 MG TABLET PO (10:12)
--- NOTE | 2020-04-16 11:24 | PM.IMPN ---
Progress Note: A&P Assessment and Plan (1) Sepsis: Qualifiers: Sepsis acute organ dysfunction status: without acute organ dysfunction Sepsis type: sepsis due to unspecified organism Qualified Code(s): A41.9 - Sepsis, unspecified organism Code(s): A41.9 - Sepsis, unspecified organism Status: Acute Assessment and Plan: 04/16/20 11:24 Likely from a urinary source, urine cultures are growing klebsiella that is susceptible to ceftriaxone day #2. Hemodynamically stable lactic acid is normal. White blood cell count has improved , no need for further imaging of the abdomen looking for a perinephric abscess unless she continues to have fever for more than 48 hrs or deteriorates clinically. Patient is 79-year-old female presented emergency department with generalized weakness difficulty with ambulation see was found to have UTI as well as sepsis and blood and urine culture is growing Klebsiella pneumonia sensitive to Rocephin being treated #3, patient is seen by Dr. tucker recommended to continue antibiotics for additional 3 days total of 7 days. Patient states still feels tired and fatigued but denies any fever or chills denies any abdominal pain nausea or vomiting. Patient was able to participate in PT OT, I was concerned though patient COVID-19 test was negative 2x, her chest x-ray elevated CRP and D-dimer however Dr. tucker does not suspect the patient is a COVID-19 patient is not isolated. Today patient states feeling better denies fever or chills any abdominal pain nausea or vomiting dysuria or frequency of urination (2) Bacteremia: Code(s): R78.81 - Bacteremia Status: Acute Assessment and Plan: BC growing gram negative bacilli. On ceftriaxone day 3/. (3) COVID-19 ruled out: Code(s): Z03.818 - Encounter for observation for suspected exposure to other biological agents ruled out Status: Acute Assessment and Plan: First PCR came back negative, we sent another one because we did not have a good explanation for the fever until we received the blood cultures. If second PCR is negative isolation can be discontinued. CRP and d dimer were elevated likely due to the underlying sepsis, lower extremity dopplers negative for DVT. No need for cta since Well's score is low, clinically a PE is unlikely. (4) Acute dehydration: Code(s): E86.0 - Dehydration Status: Acute Assessment and Plan: Improved, stop Iv fluids. (5) Urinary tract infection: Qualifiers: Hematuria presence: without hematuria Urinary tract infection type: acute cystitis Qualified Code(s): N30.00 - Acute cystitis without hematuria Code(s): N39.0 - Urinary tract infection, site not specified Status: Acute Assessment and Plan: Urine cultures are growing klebsiella that is susceptible to ceftriaxone day #3 (6) FRANTZ (acute kidney injury): Code(s): N17.9 - Acute kidney failure, unspecified Status: Acute Assessment and Plan: Likely due to dehydration , resolved. 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 (9) Iron deficiency anemia: Qualifiers: Iron deficiency anemia type: unspecified iron deficiency Qualified Code(s): D50.9 - Iron deficiency anemia, unspecified Code(s): D50.9 - Iron deficiency anemia, unspecified Status: Chronic Assessment and Plan: No active bleeding, Hb is stable. (10) ILD (interstitial lung disease): Code(s): J84.9 - Interstitial pulmonary disease
[2020-04-16 12:00] VITALS: BP 134/76; PULSE 105; RESP 16; TEMP 36.9; O2SAT 100
--- NOTE | 2020-04-16 14:58 | WPDINFPN2 ---
Progress Note: A&P Assessment and Plan (1) Urinary tract infection: Qualifiers: Hematuria presence: without hematuria Urinary tract infection type: acute cystitis Qualified Code(s): N30.00 - Acute cystitis without hematuria Code(s): N39.0 - Urinary tract infection, site not specified Status: Acute Assessment and Plan: 1. Rigors due to Klebsiella bacteremia with infection, urine source. LQ pain suggests bladder wall edema, consistent with the same (even though appeared for the first time today) 2. Weight loss, autoimmune? 3. ILD 4. Multiple allergies 5. Spinal stenosis with L foot drop REC Ctx # 3, continue at least through 04/18. No isolation. Not in need of urinary imaging for now, done in the spring. Subjective Date/time seen: 04/16/20 14:58 Interval history: no complaints except LQ pain with urination x 3 this am Exam Narrative: Exam Narrative: afebrile Const: General: no acute distress Resp: Auscultation: clear to auscultation bilaterally Cardio: Rate: regular rate Rhythm: regular rhythm Heart sounds: no gallops and no murmurs GI: Inspection: non-distended GI Palp: Yes Soft to palpation, No Tenderness to palpation present (GI) and No Guarding due to palpation present (GI) Skin: General skin exam: no rashes or lesions noted Objective Data Vital Signs Vital Signs: Vital Signs - 24 hr 04/15/20 18:00 04/15/20 20:00 04/16/20 02:00 Temperature 36.7 C 37.2 C 37.5 C Pulse Rate 97 102 H 88 Respiratory Rate 20 20 20 Blood Pressure 135/61 134/63 118/49 L Pulse Oximetry 99 97 97 04/16/20 06:43 04/16/20 10:00 Temperature 37.2 C 36.6 C Pulse Rate 99 95 Respiratory Rate 20 16 Blood Pressure 122/89 127/57 L Pulse Oximetry 98 100 Intake/Output Intake/Output: Intake & Output 04/13/20 04/14/20 04/15/20 04/16/20 23:59 23:59 23:59 23:59 Intake Total 4300 2630 1060 490 Output Total 1400 1450 1470 1250 Balance 2900 2692 -443 -162 Meds/Results Medications: Active Medications Generic Name Dose Route Start Last Admin Trade Name Freq PRN Reason Stop Dose Admin Acetaminophen 650 mg 06/09/20 18:46 04/14/20 18:46 Tylenol Tablet PO 650 mg Q6H PRN Administration Mild Pain (1-3) or Fever Albuterol 2 puff 04/13/20 09:04 04/14/20 16:38 Proventil Hfa INHALATION 2 puff Q4H PRN Administration shortness of breath or wheezing Aspirin 81 mg 04/13/20 21:00 04/15/20 21:52 Aspirin Ec PO 81 mg HS LUZ MARINA Administration Benzonatate 100 mg 04/13/20 09:00 04/16/20 08:01 Tessalon Perles PO 100 mg TID PRN Administration cough Candesartan Cilexetil 16 mg 04/13/20 13:50 04/16/20 08:01 Atacand PO 16 mg DAILY LUZ MARINA Administration Clobetasol Propionate 1 applic 04/13/20 09:04 Temovate 0.05% Cream TOPICAL BID PRN Rash Famotidine 40 mg 04/14/20 09:00 04/16/20 08:00 Pepcid PO 40 mg DAILY LUZ MARINA Administration Heparin Sodium (Porcine) 5,000 units 04/13/20 14:00 04/16/20 14:27 Heparin Sodium SUB-Q 5,000 units Q8HR LUZ MARINA Administration Ceftriaxone Sodium/Dextrose 1 gm in 50 mls @ 100 mls/hr 04/13/20 16:00 04/15/20 17:02 Rocephin 1 Gm/D5w 50 Ml IVPB 100 mls/hr Q24H LUZ MARINA Administration Levothyroxine Sodium 50 mcg 04/13/20 09:10 04/16/20 05:31 Synthroid PO 50 mcg DAILY@0630 LUZ MARINA Administration Ondansetron HCl 4 mg 04/12/20 16:43 Zofran Inj IV PUSH Q4H PRN Nausea Sodium Chloride 500 mg 04/16/20 09:00 04/16/20 10:12 Sodium Chloride PO 500 mg QAM LUZ MARINA Administration Radiology Results: ITS Impressions Venous Doppler Study 04/13/20 17:14 IMPRESSION: 1. No lower extremity deep venous thrombosis bilaterally. Chest X-Ray 04/14/20 07:10 IMPRESSION: 1. Chronic interstitial lung disease with increase in the coarse interstitial pattern suggesting possible superimposed atelectasis, pneumonia and/or mild pulmonary edema. Labs Labs: La
[2020-04-16 16:00] VITALS: BP 126/78; PULSE 90; RESP 16; TEMP 36.9; O2SAT 100
[2020-04-16 17:48] LABS: SARS-CoV-2 RNA PCR Negative
[2020-04-16] MEDS: ACETAMINOPHEN 325 MG TABLET 650 MG PO (19:44)
[2020-04-16] MEDS: ASPIRIN 81 MG ENTERIC TABLET PO (21:41)
[2020-04-16 22:00] VITALS: BP 124/55; PULSE 85; RESP 18; TEMP 37.2; O2SAT 93
[2020-04-17 02:00] VITALS: BP 124/61; PULSE 91; RESP 18; TEMP 36.7; O2SAT 99
[2020-04-17] MEDS: LEVOTHYROXINE SODIUM 50 MCG TABLET PO (05:31)
[2020-04-17] MEDS: HEPARIN SODIUM 5,000 UNITS/ML VIAL 5000 UNITS SUB-Q ×3 (05:39→21:55)
[2020-04-17] MEDS: BENZONATATE 100 MG CAPSULE PO ×2 (05:46→21:57)
[2020-04-17 06:00] VITALS: BP 125/60; PULSE 80; RESP 20; TEMP 36.9; O2SAT 100
[2020-04-17 08:09] LABS: Basophils Absolute Auto 0.1 K/mm3 (0.0-0.1); Basophils Percent Auto 0.7 % (0.2-1.2); Eosinophils Absolute Auto 0.7 K/mm3 (0-0.3); Eosinophils Percent Auto 7.4 % (0-4.4); Hematocrit 25.2 % (37.0-47.0); Hemoglobin 7.7 g/dL (12.0-15.0); Immature Granulocyte Absolute 0.05 K/mm3 (0.00-0.031); Immature Granulocyte Percent A 0.5 % (0-0.5); Lymphocytes Absolute Auto 1.68 K/mm3 (0.9-3.2); Lymphocytes Percent Auto 18.5 % (18.3-44.2); Mean Corpuscular HGB Conc 30.6 g/dl (32-36); Mean Corpuscular Hemoglobin 25.1 pg (26-34); Mean Corpuscular Volume 82.1 fl (80-100); Mean Platelet Volume 8.5 fl (7.4-10.4); Monocytes Absolute Auto 0.7 K/mm3 (0.1-0.6); Monocytes Percent Auto 7.6 % (2.6-8.5); Neutrophils Percent Auto 65.3 % (45.5-73.1); Platelet Count Result 439 k/mm3 (150-375); Red Blood Count 3.07 M/mm3 (4.2-5.4); Red Cell Distribution Width 16.9 % (11.5-14.5); White Blood Count 9.1 K/mm3 (4.5-10.0)
[2020-04-17 08:11] LABS: Alanine Aminotransferase 25 U/L (4-35); Albumin Level 2.6 g/dL (3.5-5.1); Alkaline Phosphatase 95 U/L (38-126); Aspartate Amino Transferase 50 U/L (14-36); Bilirubin,Total 0.2 mg/dL (0.2-1.3); Blood Urea Nitrogen 10 mg/dL (7-17); Calcium 7.7 mg/dL (8.4-10.2); Carbon Dioxide 30 mmol/L (22-30); Chloride 96 mmol/L (98-107); Estimated CRCL calculation 53 ml/min; Estimated Glomerular Filt Rate > 60; Glucose 101 mg/dL (65-105); Potassium 3.7 mmol/L (3.4-5.0); Sodium 129 mmol/L (137-145)
[2020-04-17] MEDS: CANDESARTAN CILEXETIL 16 MG TABLET PO (08:44)
[2020-04-17] MEDS: FAMOTIDINE 20 MG TABLET 40 MG PO (08:44)
[2020-04-17] MEDS: SODIUM CHLORIDE 500 MG TABLET PO (08:44)
[2020-04-17 14:00] VITALS: BP 110/60; PULSE 81; RESP 18; TEMP 36.9; O2SAT 95
--- NOTE | 2020-04-17 14:50 | PM.IMPN ---
Progress Note: A&P Assessment and Plan (1) Sepsis: Qualifiers: Sepsis acute organ dysfunction status: without acute organ dysfunction Sepsis type: sepsis due to unspecified organism Qualified Code(s): A41.9 - Sepsis, unspecified organism Code(s): A41.9 - Sepsis, unspecified organism Status: Acute Assessment and Plan: 04/17/20 14:50 Likely from a urinary source, urine cultures are growing klebsiella that is susceptible to ceftriaxone day #2. Hemodynamically stable lactic acid is normal. White blood cell count has improved , no need for further imaging of the abdomen looking for a perinephric abscess unless she continues to have fever for more than 48 hrs or deteriorates clinically. Patient is 79-year-old female presented emergency department with generalized weakness difficulty with ambulation see was found to have UTI as well as sepsis and blood and urine culture is growing Klebsiella pneumonia sensitive to Rocephin being treated #3, patient is seen by Dr. tucker recommended to continue antibiotics for additional 1 days total of 7 days. Patient states still feels tired and fatigued but denies any fever or chills denies any abdominal pain nausea or vomiting. Patient was able to participate in PT OT, I was concerned though patient COVID-19 test was negative 2x, her chest x-ray elevated CRP and D-dimer however Dr. tucker does not suspect the patient is a COVID-19 patient is not isolated. Today patient states feeling better denies fever or chills any abdominal pain nausea or vomiting dysuria or frequency of urination, tomorrow patient will complete her course of IV antibiotics will [facility] (2) Bacteremia: Code(s): R78.81 - Bacteremia Status: Acute Assessment and Plan: BC growing gram negative bacilli. On ceftriaxone day 6/7. (3) COVID-19 ruled out: Code(s): Z03.818 - Encounter for observation for suspected exposure to other biological agents ruled out Status: Acute Assessment and Plan: First PCR came back negative, we sent another one because we did not have a good explanation for the fever until we received the blood cultures. If second PCR is negative isolation can be discontinued. CRP and d dimer were elevated likely due to the underlying sepsis, lower extremity dopplers negative for DVT. No need for cta since Well's score is low, clinically a PE is unlikely. (4) Acute dehydration: Code(s): E86.0 - Dehydration Status: Acute Assessment and Plan: Improved, stop Iv fluids. (5) Urinary tract infection: Qualifiers: Hematuria presence: without hematuria Urinary tract infection type: acute cystitis Qualified Code(s): N30.00 - Acute cystitis without hematuria Code(s): N39.0 - Urinary tract infection, site not specified Status: Acute Assessment and Plan: Urine cultures are growing klebsiella that is susceptible to ceftriaxone day #3 (6) FRANTZ (acute kidney injury): Code(s): N17.9 - Acute kidney failure, unspecified Status: Acute Assessment and Plan: Likely due to dehydration , resolved. 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 (9) Iron deficiency anemia: Qualifiers: Iron deficiency anemia type: unspecified iron deficiency Qualified Code(s): D50.9 - Iron deficiency anemia, unspecified Code(s): D50.9 - Iron deficiency anemia, unspecified Status: Chronic Assessment and Plan: No active bleeding,
[2020-04-17 16:00] VITALS: BP 152/58; PULSE 103; RESP 24; TEMP 36.7; O2SAT 100
[2020-04-17] MEDS: polyethylene glycoL 3350 17 GM POWD.PACK PO (18:48)
[2020-04-17] MEDS: ASPIRIN 81 MG ENTERIC TABLET PO (21:55)
[2020-04-17] MEDS: ACETAMINOPHEN 325 MG TABLET 650 MG PO (21:55)
[2020-04-17 22:00] VITALS: BP 133/53; PULSE 91; RESP 20; TEMP 37.3; O2SAT 96
[2020-04-18 02:00] VITALS: BP 121/55; PULSE 75; RESP 18; TEMP 37.1; O2SAT 96
[2020-04-18 06:00] VITALS: BP 134/65; PULSE 77; RESP 18; TEMP 37.2; O2SAT 96
[2020-04-18] MEDS: HEPARIN SODIUM 5,000 UNITS/ML VIAL 5000 UNITS SUB-Q ×2 (06:25→13:43)
[2020-04-18] MEDS: LEVOTHYROXINE SODIUM 50 MCG TABLET PO (06:25)
[2020-04-18 07:52] LABS: Basophils Absolute Auto 0.1 K/mm3 (0.0-0.1); Basophils Percent Auto 0.6 % (0.2-1.2); Eosinophils Absolute Auto 0.9 K/mm3 (0-0.3); Eosinophils Percent Auto 9.5 % (0-4.4); Hematocrit 23.4 % (37.0-47.0); Hemoglobin 7.1 g/dL (12.0-15.0); Immature Granulocyte Absolute 0.06 K/mm3 (0.00-0.031); Immature Granulocyte Percent A 0.7 % (0-0.5); Lymphocytes Absolute Auto 1.97 K/mm3 (0.9-3.2); Lymphocytes Percent Auto 21.8 % (18.3-44.2); Mean Corpuscular HGB Conc 30.3 g/dl (32-36); Mean Corpuscular Hemoglobin 25.1 pg (26-34); Mean Corpuscular Volume 82.7 fl (80-100); Mean Platelet Volume 9.4 fl (7.4-10.4); Monocytes Absolute Auto 0.8 K/mm3 (0.1-0.6); Monocytes Percent Auto 8.9 % (2.6-8.5); Neutrophils Absolute Auto 5.3 K/mm3 (1.3-6.7); Neutrophils Percent Auto 58.5 % (45.5-73.1); Platelet Count Result 451 k/mm3 (150-375); Red Blood Count 2.83 M/mm3 (4.2-5.4)
[2020-04-18 08:06] LABS: Alanine Aminotransferase 31 U/L (4-35); Albumin Level 2.6 g/dL (3.5-5.1); Alkaline Phosphatase 86 U/L (38-126); Aspartate Amino Transferase 49 U/L (14-36); Bilirubin,Total 0.2 mg/dL (0.2-1.3); Blood Urea Nitrogen 11 mg/dL (7-17); Calcium 7.8 mg/dL (8.4-10.2); Carbon Dioxide 31 mmol/L (22-30); Chloride 97 mmol/L (98-107); Estimated CRCL calculation 53 ml/min; Estimated Glomerular Filt Rate > 60; Glucose 93 mg/dL (65-105); Potassium 3.8 mmol/L (3.4-5.0); Sodium 134 mmol/L (137-145)
[2020-04-18] MEDS: CANDESARTAN CILEXETIL 16 MG TABLET PO (09:30)
[2020-04-18] MEDS: BENZONATATE 100 MG CAPSULE PO (09:31)
[2020-04-18] MEDS: FAMOTIDINE 20 MG TABLET 40 MG PO (09:31)
[2020-04-18 10:00] VITALS: BP 123/53; PULSE 112; RESP 18; TEMP 36.5; O2SAT 96
[2020-04-18] MEDS: polyethylene glycoL 3350 17 GM POWD.PACK PO (10:26)
[2020-04-18] MEDS: SODIUM CHLORIDE 500 MG TABLET PO (10:29)
--- NOTE | 2020-04-18 12:48 | PM.DS ---
DS: Admitting Diagnosis Admitting Diagnosis Admitting Diagnosis: Sepsis, unspecified organism DS: Discharge Diagnosis Discharge Diagnosis (1) Sepsis: Qualifiers: Sepsis acute organ dysfunction status: without acute organ dysfunction Sepsis type: sepsis due to unspecified organism Qualified Code(s): A41.9 - Sepsis, unspecified organism Code(s): A41.9 - Sepsis, unspecified organism Status: Acute Assessment and Plan: 04/17/20 14:50 Likely from a urinary source, urine cultures are growing klebsiella that is susceptible to ceftriaxone day #2. Hemodynamically stable lactic acid is normal. White blood cell count has improved , no need for further imaging of the abdomen looking for a perinephric abscess unless she continues to have fever for more than 48 hrs or deteriorates clinically. Patient is 79-year-old female presented emergency department with generalized weakness difficulty with ambulation see was found to have UTI as well as sepsis and blood and urine culture is growing Klebsiella pneumonia sensitive to Rocephin being treated #3, patient is seen by Dr. tucker recommended to continue antibiotics for additional 1 days total of 7 days. Patient states still feels tired and fatigued but denies any fever or chills denies any abdominal pain nausea or vomiting. Patient was able to participate in PT OT, I was concerned though patient COVID-19 test was negative 2x, her chest x-ray elevated CRP and D-dimer however Dr. tucker does not suspect the patient is a COVID-19 patient is not isolated. Today patient states feeling better denies fever or chills any abdominal pain nausea or vomiting dysuria or frequency of urination, tomorrow patient will complete her course of IV antibiotics will discharge the patient to longterm facility (2) Bacteremia: Code(s): R78.81 - Bacteremia Status: Acute Assessment and Plan: BC growing gram negative bacilli. On ceftriaxone day 6/7. (3) COVID-19 ruled out: Code(s): Z03.818 - Encounter for observation for suspected exposure to other biological agents ruled out Status: Acute Assessment and Plan: First PCR came back negative, we sent another one because we did not have a good explanation for the fever until we received the blood cultures. If second PCR is negative isolation can be discontinued. CRP and d dimer were elevated likely due to the underlying sepsis, lower extremity dopplers negative for DVT. No need for cta since Well's score is low, clinically a PE is unlikely. (4) Acute dehydration: Code(s): E86.0 - Dehydration Status: Acute Assessment and Plan: Improved, stop Iv fluids. (5) Urinary tract infection: Qualifiers: Hematuria presence: without hematuria Urinary tract infection type: acute cystitis Qualified Code(s): N30.00 - Acute cystitis without hematuria Code(s): N39.0 - Urinary tract infection, site not specified Status: Acute Assessment and Plan: Urine cultures are growing klebsiella that is susceptible to ceftriaxone day #3 (6) FRANTZ (acute kidney injury): Code(s): N17.9 - Acute kidney failure, unspecified Status: Acute Assessment and Plan: Likely due to dehydration , resolved. 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 (9) Iron deficiency anemia: Qualifiers: Iron deficiency anemia type: unspecified iron deficiency Qualified Code(s): D50.9 - Iron deficiency anemia, unspecified Code(s): D50.9 - Iro
--- NOTE | 2020-04-18 13:16 | PC.NURSE ---
I spoke with Lorie in Pharmacy at 1315 regarding the patient's last done of Rocepin. I informed her that the patient received a dose on 04/17/2020 at 1645. Lorie said that it was safe to give the patient her 04/18/2020 dose anytime now.
== END 2020-04-18 15:22 | DRG 872 ==
LOC: ANHED 16:48 → ANH3MEDSUR 17:32
PROVIDERS: Emergency Medicine; Emergency Medicine Emergency Medical Services; Family Medicine; Hospitalist; Admitting Provider Internal Medicine; Emergency Provider Emergency Medicine; PCP Internal Medicine; Visit Provider Family Medicine
DX: A41.59 Other Gram-negative sepsis (principal); N39.0 Urinary tract infection, site not specified; E87.1 Hypo-osmolality and hyponatremia; N17.9 Acute kidney failure, unspecified; J84.9 Interstitial pulmonary disease, unspecified; B96.1 Klebsiella pneumoniae [K. pneumoniae] as the cause of diseases classified elsewhere; R63.4 Abnormal weight loss; Z20.828 Contact with and (suspected) exposure to other viral communicable diseases; M21.372 Foot drop, left foot; M19.90 Unspecified osteoarthritis, unspecified site; E86.0 Dehydration; J44.9 Chronic obstructive pulmonary disease, unspecified; K21.9 Gastro-esophageal reflux disease without esophagitis; K58.9 Irritable bowel syndrome, unspecified; D50.9 Iron deficiency anemia, unspecified; E78.2 Mixed hyperlipidemia; I27.20 Pulmonary hypertension, unspecified; M48.00 Spinal stenosis, site unspecified; I10 Essential (primary) hypertension; L40.9 Psoriasis, unspecified; Z90.710 Acquired absence of both cervix and uterus; Z90.49 Acquired absence of other specified parts of digestive tract; Z87.891 Personal history of nicotine dependence; Z96.643 Presence of artificial hip joint, bilateral
CPT/HCPCS: 36415; 71045; 80048; 80053; 81001; 82728; 83605; 83930; 83935; 84295; 84300; 84443; 85025; 85380; 85610; 85730; 86140; 87040; 87077; 87086; 87088; 87186; 87635; 93970; 94640; 96361; 96365; 96367; 96375; 96376; 97110; 97161; 97165; 97530; 97535; 99285; A9270; C9803; G0378; J0131; J0696; J1644; J2405; J7030; J7120; U0003

== ENCOUNTER 2020-10-25 16:45 | Outpatient (CLI) | payer MEDICARE, BC, SELFPAY ==
[2020-10-25 17:16] LABS: Basophils Absolute Auto 0.1 K/mm3 (0.0-0.1); Basophils Percent Auto 0.8 % (0.2-1.2); Eosinophils Absolute Auto 0.8 K/mm3 (0-0.3); Eosinophils Percent Auto 7.4 % (0-4.4); Hematocrit 28.2 % (37.0-47.0); Hemoglobin 8.9 g/dL (12.0-15.0); Immature Granulocyte Absolute 0.05 K/mm3 (0.00-0.031); Immature Granulocyte Percent A 0.5 % (0-0.5); Lymphocytes Absolute Auto 1.86 K/mm3 (0.9-3.2); Lymphocytes Percent Auto 17.3 % (18.3-44.2); Mean Corpuscular HGB Conc 31.6 g/dl (32-36); Mean Corpuscular Hemoglobin 24.7 pg (26-34); Mean Corpuscular Volume 78.1 fl (80-100); Mean Platelet Volume 8.3 fl (7.4-10.4); Monocytes Absolute Auto 0.7 K/mm3 (0.1-0.6); Monocytes Percent Auto 6.9 % (2.6-8.5); Neutrophils Absolute Auto 7.2 K/mm3 (1.3-6.7); Neutrophils Percent Auto 67.1 % (45.5-73.1); Platelet Count Result 593 k/mm3 (150-375); Red Blood Count 3.61 M/mm3 (4.2-5.4); Red Cell Distribution Width 14.6 % (11.5-14.5); White Blood Count 10.7 K/mm3 (4.5-10.0)
[2020-10-25 19:26] LABS: Iron 19 ug/dL (37-170)
[2020-10-25 19:36] LABS: Percent Iron Saturation 7 % (20-50)
[2020-10-25 20:24] LABS: Alanine Aminotransferase 12 U/L (4-35); Albumin Level 3.8 g/dL (3.5-5.1); Alkaline Phosphatase 76 U/L (38-126); Anion Gap 8 mmol/L (8-16); Aspartate Amino Transferase 29 U/L (14-36); Bilirubin,Total 0.3 mg/dL (0.2-1.3); Blood Urea Nitrogen 22 mg/dL (7-17); Calcium 9.5 mg/dL (8.4-10.2); Carbon Dioxide 29 mmol/L (22-30); Chloride 89 mmol/L (98-107); Estimated Glomerular Filt Rate 48; Glucose 106 mg/dL (65-105); Sodium 126 mmol/L (137-145)
[2020-10-25 20:52] LABS: Thyroid Stimulating Hormone 0.772 uIU/mL (0.465-4.680)
== END 2020-10-25 16:46 | disposition home or self-care (01) ==
LOC: ANHLAB 16:47
PROVIDERS: PCP Internal Medicine; Visit Provider Internal Medicine
DX: E78.2 Mixed hyperlipidemia (principal); I10 Essential (primary) hypertension; E03.9 Hypothyroidism, unspecified; D50.9 Iron deficiency anemia, unspecified; N30.00 Acute cystitis without hematuria
CPT/HCPCS: 36415; 80053; 83540; 83550; 84443; 85025

== ENCOUNTER 2020-10-26 17:09 | Outpatient (NON) | payer MEDICARE, BC, SELFPAY | END 2020-10-26 17:10 | LOC: ANHLAB 17:10 | PROVIDERS: PCP Internal Medicine; Visit Provider Internal Medicine | DX: N30.00 Acute cystitis without hematuria (principal) | CPT/HCPCS: 87077; 87086; 87088; 87186 ==

== ENCOUNTER 2020-11-11 16:51 | Outpatient (NON) | payer MEDICARE, BC, SELFPAY | END 2020-11-11 16:52 | LOC: ANHLAB 16:53 | PROVIDERS: PCP Internal Medicine; Visit Provider Internal Medicine | DX: N30.00 Acute cystitis without hematuria (principal) | CPT/HCPCS: 87077; 87086; 87088; 87186 ==

== ENCOUNTER 2020-11-17 16:18 | Outpatient (CLI) | payer MEDICARE, BC, SELFPAY ==
[2020-11-17 17:00] LABS: Anion Gap 7 mmol/L (8-16); Blood Urea Nitrogen 23 mg/dL (7-17); Calcium 9.7 mg/dL (8.4-10.2); Carbon Dioxide 29 mmol/L (22-30); Chloride 92 mmol/L (98-107); Estimated Glomerular Filt Rate 43; Glucose 111 mg/dL (65-105); Potassium 4.4 mmol/L (3.4-5.0); Sodium 128 mmol/L (137-145)
== END 2020-11-17 16:19 | disposition home or self-care (01) ==
LOC: ANHLAB 16:20
PROVIDERS: PCP Internal Medicine; Visit Provider Internal Medicine
DX: E87.1 Hypo-osmolality and hyponatremia (principal)
CPT/HCPCS: 36415; 80048

== ENCOUNTER 2020-12-03 09:35 | Outpatient (CLI) | payer MEDICARE, BC, SELFPAY ==
--- NOTE | ~2020-12-03 | CT_ITS ---
EXAMINATION: CT chest high resolution wo co DATE: 12/03/2020 09:54 INDICATION: J84.9 - Interstitial pulmonary disease, unspecified TECHNIQUE: Computed tomography (CT) of the chest was performed without intravenous contrast. Addition al 3D reconstructions utilizing coronal maximum intensity projection (MIP) were performed. Automated exposure control and iterative reconstruction technique were employed. The dose-length product was 13 6.72 mGy-cm. COMPARISON: 01/05/2020 and 10/16/2019 FINDINGS: Again seen are bilateral peripheral and lower lung predominant coarse reticular opacities with honeyc ombing. Mild increase in adjacent pleural thickening/pleural parenchymal scarring at the lateral aspe ct of the right upper and middle lobes. Mild cylindrical bronchiectasis also with lower lung predomin ance. No pleural effusion or pneumothorax. Cardiomegaly. Atherosclerotic coronary artery calcificatio n is. Small amount of fluid at the superior pericardial recesses. No significant pericardial effusion . Fusiform ascending thoracic aortic aneurysm measuring up to 4.5 x 4.1 cm. Calcified mediastinal lym ph nodes consistent with old granulomatous disease. No pathologically enlarged thoracic lymphadenopat hy. 3.7 cm relatively low attenuation cystic lesion at the upper pole of the right kidney. The attenu ation however appears somewhat heterogeneous and could not exclude a complex cyst or cystic neoplasm. Mild thoracic dextroscoliosis with severe spondylosis. Diffuse osteopenia. IMPRESSION: 1. New 3.7 cm cystic lesion at the upper pole of the right kidney attenuation suggesting possible com plex cyst or cystic neoplasm including renal cell carcinoma. Recommend further evaluation with pre an d postcontrast MRI or CT. Could also consider ultrasound however this would be more likely to remain nondiagnostic. 2. Mild progression in pleural parenchymal scarring in the lateral right lung with otherwise stable a ppearance of peripheral and lower lung predominant chronic interstitial lung disease with usual inter stitial pneumonia (UIP) pattern. 3. Cardiomegaly. 4. 4.5 x 4.1 cm fusiform ascending thoracic aortic aneurysm. Reviewed, dictated and finalized at location B. [employer]G [employer]PER[employer] IMPRESSION: 1. New 3.7 cm cystic lesion at the upper pole of the right kidney attenuation s uggesting possible complex cyst or cystic neoplasm including renal cell carcino ma. Recommend further evaluation with pre and postcontrast MRI or CT. Could als o consider ultrasound however this would be more likely to remain nondiagnostic . 2. Mild progression in pleural parenchymal scarring in the lateral right lung w ith otherwise stable appearance of peripheral and lower lung predominant chroni c interstitial lung disease with usual interstitial pneumonia (UIP) pattern. 3. Cardiomegaly. 4. 4.5 x 4.1 cm fusiform ascending thoracic aortic aneurysm.
== END 2020-12-03 09:36 | disposition home or self-care (01) ==
LOC: ANHIMG 09:36
PROVIDERS: PCP Internal Medicine; Visit Provider Nurse Practitioner Family
DX: J84.9 Interstitial pulmonary disease, unspecified (principal); I51.7 Cardiomegaly; I71.2 Thoracic aortic aneurysm, without rupture
CPT/HCPCS: 71250

== ENCOUNTER 2020-12-08 12:26 | Outpatient (CLI) | payer MEDICARE, BC, SELFPAY ==
--- NOTE | 2020-12-09 15:11 | WPDSIXMINUTE ---
Six Minute Walk This is a 6 minutes walk for exertional dyspnea. Findings: The patient's resting room air oxygen saturation measured by pulse oximetry was 95% and her heart rate was 91 bpm. Patient ambulated for 4 minutes and then had to stop and could not walk any further. Over the 4 minutes the patient walked 61 meters and oxygen saturation remained 92 to 97%. Heart rate at the end of the study was 105 bpm. There are no prior studies for comparison.
== END 2020-12-08 12:27 | disposition home or self-care (01) ==
PROVIDERS: PCP Internal Medicine; Visit Provider Nurse Practitioner Family
DX: R06.02 Shortness of breath (principal)
CPT/HCPCS: 94618

== ENCOUNTER 2021-03-17 11:50 | Emergency (ER) | payer MEDICARE, BC, SELFPAY ==
[2021-03-17 12:04] VITALS: BP 129/67; PULSE 95; RESP 30; TEMP 36.6; O2SAT 97
--- NOTE | 2021-03-17 12:34 | PC.NURSE ---
has been unable to give ua spec. aware to notify staff/call button when able.
--- NOTE | 2021-03-17 12:45 | ED.FEMALEGU ---
HPI - Female Genitourinary General Chief complaint: Urogenital-Female Stated complaint: Blood in urine Time Seen by Provider: 03/17/21 11:54 Source: patient Mode of arrival: ambulatory Limitations: no limitations History of Present Illness HPI Narrative: 80-year-old female presents to [facility] with complaints of hematuria since yesterday. Patient reports that she passed large amount of blood with urination multiple times yesterday. Patient also reports some lower abdominal pressure. Patient denies urinary frequency, urgency, pain or burning. Patient reports that she was admitted to the hospital 1 year ago due to urosepsis. Patient reports that she has lost approximately 60 pounds in the last year and her primary care provider is aware. Patient reports that she did see her lung specialist yesterday due to COPD and was referred to a icu specialist due to suspected cardiac issue. Patient denies fever, body aches, chills, nausea, vomiting or diarrhea. Patient reports that she has been having increasing fatigue over the past few days. MD elicited complaint: other (Hematuria, pelvic pressure) Onset (ago): day(s) (1) Vaginal discharge: none Urinary symptoms: Hematuria Exacerbating factors: none Relieving factors: none Sexual activity: No Patient : No Related Data Home Medications Medication Instructions Recorded Confirmed aspirin 81 mg tablet,delayed 81 mg PO HS 10/13/19 11/17/20 release [id number]-fgr-mmsae acid 0.4 1 tablet PO DAILY 10/13/19 11/17/20 mg-lycopene 300 mcg-lutein 250 mcg tablet clobetasol 1 applic TOPICAL BID PRN 04/12/20 11/17/20 famotidine 40 mg PO DAILY 04/12/20 11/17/20 conjugated estrogens 0.45 mg tablet 0.45 mg PO DAILY 10/12/20 11/17/20 Allergies Allergy/AdvReac Type Severity Reaction Status Date / Time SEBASTIEN Inhibitors Allergy Unknown unknown Verified 03/10/21 14:55 ciprofloxacin Allergy Unknown unknown Verified 03/10/21 14:55 lisinopril Allergy Unknown unknown Verified 03/10/21 14:55 Sulfa (Sulfonamide AdvReac Intermediate DIARRHEA Verified 03/10/21 14:55 Antibiotics) codeine AdvReac Mild NAUSEA/VOMI Verified 03/10/21 14:55 TING decongestants AdvReac Other Uncoded 03/10/21 14:55 Review of Systems Constitutional: Constitutional: Denies chills and Reports fatigue Cardiovascular: Cardiovascular: Denies chest pain Respiratory: Respiratory: Denies chest congestion, Denies cough, Denies dyspnea and Denies wheezing Gastrointestinal: Gastrointestinal: Reports abdominal pain, Denies constipation, Denies diarrhea, Denies nausea and Denies vomiting Genitourinary: Genitourinary: Reports hematuria, Denies nocturia, Denies dysuria and Denies flank pain Integumentary/Breasts: Skin/Breast: Denies rash Endocrine: Endocrine: Reports fatigue, Denies polydipsia and Denies polyuria [facility] Past Medical History Medical History Adult hypothyroidism Arthritis COPD (chronic obstructive pulmonary disease) Diverticulitis Essential (primary) hypertension Gastroesophageal reflux disease without esophagitis GERD (gastroesophageal reflux disease) Hypertension IBS (irritable bowel syndrome) ILD (interstitial lung disease) Iron deficiency anemia Mixed hyperlipidemia Primary osteoarthritis involving multiple joints Psoriasis Pulmonary arterial hypertension Spinal stenosis, unspecified region other than cervical Surgical History Surgical History H/O: hysterectomy History of back surgery History of bladder surgery History of right hip replacement History of total hip replacement Hx of cholecystectomy Family History Family History Mother Cerebrovascular accident Father Acute myocardial infarction Sibling Heart disease Social History Social History Social History: [employer]
== END 2021-03-17 12:48 | disposition short-term general hospital (02) ==
PROVIDERS: Emergency Provider Nurse Practitioner Family; PCP Internal Medicine
DX: R31.9 Hematuria, unspecified (principal); R53.83 Other fatigue; Z87.891 Personal history of nicotine dependence; E03.9 Hypothyroidism, unspecified; M19.90 Unspecified osteoarthritis, unspecified site; J44.9 Chronic obstructive pulmonary disease, unspecified; I10 Essential (primary) hypertension; K21.9 Gastro-esophageal reflux disease without esophagitis; D50.9 Iron deficiency anemia, unspecified; E78.2 Mixed hyperlipidemia; Z96.641 Presence of right artificial hip joint; Z79.82 Long term (current) use of aspirin
CPT/HCPCS: 99212; G0463

== ENCOUNTER 2021-03-17 13:10 | Inpatient (IN) | payer MEDICARE, BC, SELFPAY ==
--- NOTE | ~2021-03-17 | XR_ITS ---
EXAMINATION: XR chest 2V EXAM DATE: 03/17/2021 15:38 INDICATION: Weakness, history of COPD. TECHNIQUE: Frontal and lateral projections of the chest obtained and reviewed. Comparison is made to prior examination from 04/14/2020. FINDINGS: There is diffuse abnormal peripheral reticulation which has been a chronic finding of inte rstitial lung disease. No evidence of superimposed acute airspace disease. No pneumothorax or pleural effusion. Mild cardiomegaly. There are bony degenerative changes. IMPRESSION: Chronic interstitial lung disease. Reviewed, dictated and finalized at location A.
--- NOTE | ~2021-03-17 | CT_ITS ---
EXAMINATION: CT abdomen pelvis wo con DATE: 03/17/2021 15:32 INDICATION: Low abdominal pain. Hematuria. TECHNIQUE: Computed tomography (CT) of the abdomen and pelvis was performed without intravenous contr ast. Automated exposure control and iterative reconstruction technique were employed. The dose-length product was 308.83 mGy-cm. COMPARISON: CT abdomen and pelvis 02/04/2020, chest CT 12/03/2020 FINDINGS: The visualized portions of the lung bases demonstrate widespread septal thickening with bro nchiectasis and peripheral honeycombing. No pleural effusion. The heart size is normal. There are cor onary artery calcifications. There is ectasia of ascending aorta measuring 4.5 cm. The liver and sple en are normal. There are changes of cholecystectomy. The pancreas and adrenal glands are normal. Ther e is a 5.9 cm cyst in right kidney lower pole. There is a 5.6 cm mass in right kidney upper pole. The re is loss of the normal perihilar fat (faceless kidney). There is a 13 mm cyst in left kidney. There is no urolithiasis. There is diverticulosis of the colon without evidence of diverticulitis. The alvaro endix is not visualized. There are no dilated loops of bowel. There is mild aortocaval lymphadenopath y. A arborist representative node measures 15 x 11 mm. There is no free intraperitoneal fluid. There is a tota l right hip arthroplasty. There is severe lumbar spondylosis. IMPRESSION: 1. Abnormal right kidney suspicious for pyelonephritis with abscess or malignancy. Abdomen CT with co ntrast is recommended. 2. Mild aortocaval lymphadenopathy. 3. Chronic interstitial lung disease in a pattern of usual interstitial pneumonia (UIP). 4. Ectasia of ascending aorta measuring 4.5 cm. Reviewed, dictated and finalized at location B. IMPRESSION: 1. Abnormal right kidney suspicious for pyelonephritis with abscess or malignan cy. Abdomen CT with contrast is recommended. 2. Mild aortocaval lymphadenopathy. 3. Chronic interstitial lung disease in a pattern of usual interstitial pneumon ia (UIP). 4. Ectasia of ascending aorta measuring 4.5 cm.
--- NOTE | ~2021-03-17 | CT_ITS ---
EXAMINATION: CT abdomen pelvis w con DATE: 03/17/2021 16:25 INDICATION: Right kidney mass. TECHNIQUE: Computed tomography (CT) of the abdomen and pelvis was performed with 100 mL Omnipaque 350 intravenous contrast. Automated exposure control and iterative reconstruction technique were employe d. The dose-length product was 291.87 mGy-cm. COMPARISON: CT abdomen and pelvis 03/17/2021, 02/04/2020 FINDINGS: The visualized portions of the lung bases demonstrate chronic interstitial lung disease in a pattern of usual interstitial pneumonia (UIP). No pleural effusion. Cardiomegaly is noted. There ar e coronary artery calcifications. There is ectasia of ascending aorta measuring 4.5 cm. The liver is normal. There are changes of cholecystectomy. The spleen, pancreas, adrenal glands are normal. There are cysts in the kidneys measuring up to 6.6 cm on the right. There is severe right hydronephrosis wi th architectural distortion and upper pole parenchymal volume loss. There is a decreased right-sided contrast nephrogram. There is no urolithiasis. There is mild aortocaval lymphadenopathy. There are no dilated loops of bowel. There is diverticulosis of the colon without evidence of diverticulitis. The re is no free intraperitoneal fluid. There is a total right hip arthroplasty. Severe thoracolumbar sp ondylosis. IMPRESSION: 1. Severe right hydronephrosis with architectural distortion and upper pole parenchymal volume loss, likely pyelonephritis. 2. Mild aortocaval lymphadenopathy. 3. Chronic interstitial lung disease in a pattern of usual interstitial pneumonia (UIP). 4. Ectasia of ascending aorta measuring 4.5 cm. Reviewed, dictated and finalized at location B. IMPRESSION: 1. Severe right hydronephrosis with architectural distortion and upper pole par enchymal volume loss, likely pyelonephritis. 2. Mild aortocaval lymphadenopathy. 3. Chronic interstitial lung disease in a pattern of usual interstitial pneumon ia (UIP). 4. Ectasia of ascending aorta measuring 4.5 cm.
--- NOTE | ~2021-03-17 | XR_ITS ---
EXAMINATION: XR retrograde pyelo w/stent RT EXAM DATE: 03/18/2021 15:48 INDICATION: Right-sided ureteroscopy, stent placement. TECHNIQUE: Fluoroscopy used during XR retrograde pyelo w/stent RT performed by Dr. Herbert lugo MD, urologist. The radiologist Fito Pool M.D. dictating this report of the image(s) availabl e was not present for the procedure. Total fluoroscopic time of 57 seconds. The DAP for this proced ure was 524 radcm2. A total of 11 images sent to PACS from the exam. Correlation is made to CT scan 03/17/2021. FINDINGS: Right ureter was cannulated, injected. There is narrowing of the right ureteropelvic junct ion. Contrast filled the severe hydronephrosis proximal to this narrowing. No shouldering to the stri cture to specifically suggest malignancy as the etiology, indicates narrowing could be from chronic i nflammation, chronic pyelonephritis. Can't exclude malignancy. Wire was able to traverse the strictur e, and a right-sided double-J ureteral stent was placed. Correlate with procedure note. IMPRESSION: Right UPJ narrowing, severe hydronephrosis. Stent in position. Reviewed, dictated and finalized at location A.
[2021-03-17 13:13] VITALS: BP 162/68; PULSE 92; RESP 16; TEMP 36.3; O2SAT 100
[2021-03-17 13:33] LABS: Basophils Absolute Auto 0.1 K/mm3 (0.0-0.1); Basophils Percent Auto 0.7 % (0.2-1.2); Eosinophils Absolute Auto 0.3 K/mm3 (0-0.3); Eosinophils Percent Auto 3.1 % (0-4.4); Hematocrit 26.4 % (37.0-47.0); Hemoglobin 8.2 g/dL (12.0-15.0); Immature Granulocyte Absolute 0.03 K/mm3 (0.00-0.031); Immature Granulocyte Percent A 0.3 % (0-0.5); Lymphocytes Absolute Auto 1.23 K/mm3 (0.9-3.2); Lymphocytes Percent Auto 12.5 % (18.3-44.2); Mean Corpuscular HGB Conc 31.1 g/dl (32-36); Mean Corpuscular Hemoglobin 24.4 pg (26-34); Mean Corpuscular Volume 78.6 fl (80-100); Mean Platelet Volume 8.2 fl (7.4-10.4); Monocytes Absolute Auto 0.7 K/mm3 (0.1-0.6); Monocytes Percent Auto 7.4 % (2.6-8.5); Neutrophils Absolute Auto 7.5 K/mm3 (1.3-6.7); Platelet Count Result 502 k/mm3 (150-375); Red Blood Count 3.36 M/mm3 (4.2-5.4); Red Cell Distribution Width 13.6 % (11.5-14.5); White Blood Count 9.8 K/mm3 (4.5-10.0)
[2021-03-17 13:49] LABS: Alanine Aminotransferase 12 U/L (4-35); Albumin Level 3.8 g/dL (3.5-5.1); Alkaline Phosphatase 74 U/L (38-126); Anion Gap 4 mmol/L (8-16); Aspartate Amino Transferase 33 U/L (14-36); Bilirubin,Total 0.2 mg/dL (0.2-1.3); Blood Urea Nitrogen 27 mg/dL (7-17); Calcium 9.8 mg/dL (8.4-10.2); Carbon Dioxide 30 mmol/L (22-30); Chloride 90 mmol/L (98-107); Estimated CRCL calculation 27 ml/min; Estimated Glomerular Filt Rate 39; Glucose 103 mg/dL (65-105); Potassium 5.4 mmol/L (3.4-5.0); Sodium 124 mmol/L (137-145)
--- NOTE | 2021-03-17 15:18 | ECG_ITS ---
Measurements Intervals [place] Rate: 81 P: 43 UT: 172 QRS: 6 QRSD: 98 T: 23 QT: 338 QTc: 395 Interpretive Statements SINUS RHYTHM NORMAL ECG Electronically Signed On 03-17-2021 15:58:23 CDT by Minesh Guan D.O.
--- NOTE | 2021-03-17 15:19 | ED.GENADULT ---
HPI - General Adult General Chief complaint: Urogenital-Female Stated complaint: hematuria Time Seen by Provider: 03/17/21 14:59 Source: patient and RN notes reviewed Mode of arrival: ambulatory Limitations: no limitations History of Present Illness HPI narrative: This is an 80 year old female with history hypertension, COPD, hypothyroid who presents for evaluation of hematuria and lower abdominal pain. She states last night she was urinating and she noticed that her toilet bowl appeared to be red with blood. She denies seeing clots. She states today she has not noticed any blood in her urine. She does complain of lower abdominal pain that has been constant since yesterday. She denies nausea, vomiting or fever. she reports weakness that worsened yesterday. She states she has hemorrhoids but she does not think that is what was bleeding. Related Data Home Medications Medication Instructions Recorded Confirmed aspirin 81 mg tablet,delayed 81 mg PO HS 10/13/19 03/17/21 release hlwercst-dab-wmbhg acid 0.4 1 tablet PO DAILY 10/13/19 03/17/21 mg-lycopene 300 mcg-lutein 250 mcg tablet clobetasol 1 applic TOPICAL BID PRN 04/12/20 03/17/21 famotidine 40 mg PO DAILY 04/12/20 03/17/21 docusate sodium [Colace] 50 mg PO BID PRN 03/17/21 03/17/21 vitamin E 1 cap PO DAILY 03/17/21 03/17/21 Allergies Allergy/AdvReac Type Severity Reaction Status Date / Time SEBASTIEN Inhibitors Allergy Unknown unknown Verified 03/17/21 17:34 ciprofloxacin Allergy Unknown unknown Verified 03/17/21 17:34 lisinopril Allergy Unknown unknown Verified 03/17/21 17:34 Sulfa (Sulfonamide AdvReac Intermediate DIARRHEA Verified 03/17/21 17:34 Antibiotics) codeine AdvReac Mild NAUSEA/VOMI Verified 03/17/21 17:34 TING decongestants AdvReac Other Uncoded 03/17/21 17:34 Review of Systems Review of Systems: All systems reviewed & are unremarkable except as noted in HPI and below Constitutional: Constitutional: Denies chills, Reports fatigue, Denies fever(s) and Reports weakness Cardiovascular: Cardiovascular: Denies chest pain Respiratory: Respiratory: Denies cough and Denies dyspnea Gastrointestinal: Gastrointestinal: Reports abdominal pain and Denies diarrhea Genitourinary: Genitourinary: Reports hematuria, Denies nocturia, Denies dysuria and Denies flank pain Musculoskeletal: Musculoskeletal: Reports back pain (chronic) [facility] Past Medical History Medical History (Updated 03/17/21 @ 23:04 by Debi Huggins MD) Adult hypothyroidism Arthritis COPD (chronic obstructive pulmonary disease) Diverticulitis Essential (primary) hypertension Gastroesophageal reflux disease without esophagitis GERD (gastroesophageal reflux disease) Hypertension IBS (irritable bowel syndrome) ILD (interstitial lung disease) Iron deficiency anemia Mixed hyperlipidemia Primary osteoarthritis involving multiple joints Psoriasis Pulmonary arterial hypertension Spinal stenosis, unspecified region other than cervical Surgical History Surgical History H/O: hysterectomy History of back surgery History of bladder surgery History of right hip replacement History of total hip replacement Hx of cholecystectomy Family History Family History Mother Cerebrovascular accident Father Acute myocardial infarction Sibling Heart disease Social History Social History Social History: The patient quit smoking about 35 years ago. 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 The patient has 2 children. She is and she lives alone. She desires to be a full code and does not have a power of traffic law attorney. She denies alcohol and illicit drugs. Smoking status: Former smoker Alcohol intake: never Substance use: never Substance use type: does not use
[2021-03-17 15:29] LABS: Add Urine Microscopic? YES; Appearance Urine Cloudy (Clear); Bacteria Urine Trace /hpf; Bilirubin Urine Negative (Negative); Blood Urine 2+ (Negative); Color Urine Yellow (Yellow); Glucose Urine UA Negative (Negative); Ketones Urine Negative (Negative); Leukocyte Esterase Ur 3+ LEU/UL (Negative); Mucus Urine Rare /lpf; Nitrate Urine Negative (Negative); Protein Urine 1+ mg/dL (Negative); RBC Urine 21-50 /hpf (0-2); Specific Grav Ur 1.015 (1.001-1.035); Squamous Epithelial Cell Urine Moderate /hpf (Few); Urobilinogen Urine Negative mg/dL (<2.0); WBC Urine 31-50 /hpf
[2021-03-17] MEDS: SODIUM CHLORIDE 0.9% IV 500 ML 999 ML IV CONT (16:04)
[2021-03-17 17:33] VITALS: BP 144/63; PULSE 82; RESP 18; O2SAT 100
[2021-03-17] MEDS: SODIUM CHLORIDE 0.9% IV 1,000 ML 150 ML IV CONT (17:35)
[2021-03-17 18:12] VITALS: BP 151/60; PULSE 80; RESP 17; O2SAT 100
--- NOTE | 2021-03-17 18:55 | PC.NURSE ---
This patient, Aryan Nick, was admitted to [facility] Surg Room 314-01. Patient/family oriented to hospital policies and general routines including ID bracelet, bed and alarms, visiting hours, pain management, procedures, bathroom and other care routines, personal items, smoking policy, room service/diet, and visiting hours. Information on how to activate the Rapid Response Team has been discussed. Patient/Family are encouraged to report perceived risks to care and to ask questions if they do not understand what they are told or what they should do.
[2021-03-17] MEDS: SODIUM CHLORIDE 0.9% IV 1,000 ML 125 ML IV CONT (18:57)
[2021-03-17 19:18] VITALS: BMI 20.6
--- NOTE | 2021-03-17 19:50 | PM.IMHP ---
H&P: HPI History of Present Illness Date/Time: 03/17/21 19:50 Chief Complaint: Hematuria Narrative: This is an 80-year-old female with past medical history significant for hypothyroidism hypertension instr tissue along disease COPD. Patient presented to the emergency room due to 1 episode of hematuria patient has had also to pain in her lower abdomen this has been for about 1 day or so she denies any fevers rigors or chills, has been feeling nauseous but no vomiting has had poor appetite, no pain no pain or burning with urination no diarrhea no shortness of breath no cough no sputum production patient states that he she has lost roughly 60 lb in a year or so unintentionally. Her preliminary workup was significant for gross hematuria and wbc's in the urine a CT of abdomen and pelvis was significant for hydronephrosis. Review of Systems Review of Systems: Narrative: Patient presented to the emergency room due to hematuria Constitutional: Constitutional: Denies chills, Reports fatigue, Denies fever(s), Reports lethargy, Reports poor appetite, Denies weakness and Reports weight loss (60 lb in roughly a year) Eyes: Eyes: Denies change in vision ENT: Denies hearing loss, Denies nasal congestion and Denies nasal discharge Cardiovascular: Cardiovascular: Denies chest pain, Denies pedal edema, Denies leg edema, Denies lightheadedness and Denies dyspnea Respiratory: Respiratory: Denies cough, Denies dyspnea and Denies wheezing Gastrointestinal: Gastrointestinal: Reports nausea Genitourinary: Genitourinary: Reports hematuria Musculoskeletal: Musculoskeletal: Denies arthralgias and Denies joint swelling Integumentary/Breasts: Skin/Breast: Denies rash Neurologic: Denies abnormal gait, Denies dizziness and Denies focal weakness Endocrine: Endocrine: Denies change in body appearance and Denies fatigue Hematologic/Lymphatic: Hematologic/Lymphatic: Reports no additional hematologic/lymphatic complaints Allergic/Immunologic: Allergic/Immunologic: Reports no additional allergic/immunologic complaints [facility] Past Medical History Medical History (Updated 03/17/21 @ 22:00 by Ari Nam MD) Adult hypothyroidism Arthritis COPD (chronic obstructive pulmonary disease) Diverticulitis Essential (primary) hypertension Gastroesophageal reflux disease without esophagitis GERD (gastroesophageal reflux disease) Hypertension IBS (irritable bowel syndrome) ILD (interstitial lung disease) Iron deficiency anemia Mixed hyperlipidemia Primary osteoarthritis involving multiple joints Psoriasis Pulmonary arterial hypertension Spinal stenosis, unspecified region other than cervical Surgical History Surgical History H/O: hysterectomy History of back surgery History of bladder surgery History of right hip replacement History of total hip replacement Hx of cholecystectomy Family History Family History Mother Cerebrovascular accident Father Acute myocardial infarction Sibling Heart disease Social History Social History Social History: The patient quit smoking about 35 years ago. 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 She is and she lives alone. She desires to be a full code and does not have a power of energy attorney. She denies alcohol and illicit drugs. Smoking status: Former smoker Alcohol intake: never Substance use: never Substance use type: does not use Gender identity (if verbalized by the patient): Female Spiritual care concerns: No Agree to blood products: Yes Meds Home Medications and Allergies Home Medications Medication Instructions Recorded Confirmed Type aspirin 81 mg tablet,delayed 81 mg PO HS 10/13/19 03/17/21 History release [id number] ac
[2021-03-17 21:46] VITALS: BP 142/87; PULSE 86; RESP 18; TEMP 36.4; O2SAT 99
[2021-03-18] VITALS (13 sets, daily range): BP systolic 115–174; BP diastolic 42–108; PULSE 74–96; RESP 14–22; TEMP 36.4–37.6; O2SAT 95–100; BMI 20.6
[2021-03-18] MEDS: SODIUM CHLORIDE 0.9% IV 1,000 ML 125 ML IV CONT ×2 (04:36→18:55)
[2021-03-18] MEDS: LEVOTHYROXINE SODIUM 50 MCG TABLET BY MOUTH (06:08)
[2021-03-18 07:12] LABS: Basophils Absolute Auto 0.1 K/mm3 (0.0-0.1); Basophils Percent Auto 0.9 % (0.2-1.2); Eosinophils Absolute Auto 0.2 K/mm3 (0-0.3); Eosinophils Percent Auto 2.4 % (0-4.4); Hematocrit 25.1 % (37.0-47.0); Hemoglobin 7.7 g/dL (12.0-15.0); Immature Granulocyte Absolute 0.03 K/mm3 (0.00-0.031); Immature Granulocyte Percent A 0.4 % (0-0.5); Lymphocytes Absolute Auto 1.16 K/mm3 (0.9-3.2); Lymphocytes Percent Auto 14.6 % (18.3-44.2); Mean Corpuscular HGB Conc 30.7 g/dl (32-36); Mean Corpuscular Hemoglobin 24.1 pg (26-34); Mean Corpuscular Volume 78.4 fl (80-100); Mean Platelet Volume 8.3 fl (7.4-10.4); Monocytes Absolute Auto 0.6 K/mm3 (0.1-0.6); Monocytes Percent Auto 7.9 % (2.6-8.5); Neutrophils Absolute Auto 5.9 K/mm3 (1.3-6.7); Neutrophils Percent Auto 73.8 % (45.5-73.1); Platelet Count Result 443 k/mm3 (150-375); Red Cell Distribution Width 13.7 % (11.5-14.5)
[2021-03-18] MEDS: FAMOTIDINE 20 MG TABLET 40 MG PO (08:50)
[2021-03-18] MEDS: VITAMIN E 1,000 UNIT CAPSULE 1000 UNIT PO (08:50)
[2021-03-18] MEDS: BENZONATATE 100 MG CAPSULE PO (08:51)
[2021-03-18] MEDS: DOCUSATE SODIUM LIQ 100 MG/10 ML UDC 50 MG PO (08:53)
[2021-03-18 11:02] LABS: Anion Gap 7 mmol/L (8-16); Blood Urea Nitrogen 22 mg/dL (7-17); Calcium 9.4 mg/dL (8.4-10.2); Carbon Dioxide 22 mmol/L (22-30); Chloride 98 mmol/L (98-107); Estimated CRCL calculation 30 ml/min; Estimated Glomerular Filt Rate 43; Glucose 86 mg/dL (65-105); Potassium 4.8 mmol/L (3.4-5.0); Sodium 127 mmol/L (137-145)
--- NOTE | 2021-03-18 11:16 | WPDURCON ---
Assessment and Plan Assessment and plan (1) Right renal mass: Code(s): N28.89 - Other specified disorders of kidney and ureter Status: Acute Assessment and Plan: Exact type of lesion is unclear at this point time. Will plan on cysto retrograde stent placement today for hydronephrosis. If her urine does not appear grossly infected may consider ureteroscopy if they scope passes easily and gently. (2) Hydronephrosis: Code(s): N13.30 - Unspecified hydronephrosis Status: Acute Assessment and Plan: Plan for cysto retrograde stent placement today (3) Urinary tract infection: Qualifiers: Hematuria presence: without hematuria Urinary tract infection type: acute cystitis Qualified Code(s): N30.00 - Acute cystitis without hematuria Code(s): N39.0 - Urinary tract infection, site not specified Status: Acute Assessment and Plan: Cultures pending the patient has been asymptomatic with normal white count and no fever. Urology Consult Note HPI Date Seen: 03/18/21 Requesting Physician: Ruthann Harmon MD Primary Care Provider: Victorino Bunn DO Consult Narrative Reason for consult: Hematuria possible right renal mass with hydro Narrative: Aryan Nick is a 80 year old female who presented the emergency room with a 1 day history of some gross painless hematuria. She denies any flank pain or discomfort at this time. Patient and her went a CT scan in the emergency room which reveals hydronephrosis of the right kidney but also with an abnormality in the upper pole area and collecting system. Initially was felt to be possibly pyelonephritis/abscess but after further review with Radiology and review of prior films there feeling that this is more hydronephrosis secondary to an obstructing renal pelvic mass. Patient is afebrile and has a normal white count. Review of Systems Review of Systems: All systems reviewed & are unremarkable except as noted in HPI and below Constitutional: Constitutional: Reports weight loss PMFSH Past Medical History Medical History Adult hypothyroidism Arthritis COPD (chronic obstructive pulmonary disease) Diverticulitis Essential (primary) hypertension Gastroesophageal reflux disease without esophagitis GERD (gastroesophageal reflux disease) Hypertension IBS (irritable bowel syndrome) ILD (interstitial lung disease) Iron deficiency anemia Mixed hyperlipidemia Primary osteoarthritis involving multiple joints Psoriasis Pulmonary arterial hypertension Spinal stenosis, unspecified region other than cervical Surgical History Surgical History H/O: hysterectomy History of back surgery History of bladder surgery History of right hip replacement History of total hip replacement Hx of cholecystectomy Family History Family History Mother Cerebrovascular accident Father Acute myocardial infarction Sibling Heart disease Social History Social History Social History: The patient quit smoking about 35 years ago. 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 The patient has 2 children. She is and she lives alone. She desires to be a full code and does not have a power of family law attorney. She denies alcohol and illicit drugs. Smoking status: Former smoker Alcohol intake: never Substance use: never Substance use type: does not use Gender identity (if verbalized by the patient): Female Spiritual care concerns: No Agree to blood products: Yes Meds Home Medications and Allergies Home Medications Medication Instructions Recorded Confirmed Type aspirin 81 mg tablet,delayed 81 mg PO HS 10/13/19 03/17/21 History release multivit-m
--- NOTE | 2021-03-18 13:21 | PM.IMPN ---
Progress Note: A&P Assessment and Plan (1) Hematuria: Qualifiers: Hematuria type: unspecified type Qualified Code(s): R31.9 - Hematuria, unspecified Code(s): R31.9 - Hematuria, unspecified Status: Inactive Assessment and Plan: Patient with episode of hematuria CT of abdomen and pelvis significant for hydronephrosis and likely pyelo of the right kidney Urology consult Supportive care 03/18/21 13:21 Patient 80-year-old female presented emergency department with complaint of hematuria and pain in her lower abdominal to further evaluate patient had CT scan of abdomen concerning for hydronephrosis patient was seen by urologist after closely reviewing CT scan and previous x-ray suspect patient may have mass along hydronephrosis and recommending cystoscopy for further evaluation which is scheduled for later today, this morning patient feeling better denies any abdominal pain nausea or vomiting fever or chills. (2) Urinary tract infection: Qualifiers: Hematuria presence: without hematuria Urinary tract infection type: acute cystitis Qualified Code(s): N30.00 - Acute cystitis without hematuria Code(s): N39.0 - Urinary tract infection, site not specified Status: Acute Assessment and Plan: Started on Rocephin Await urine culture identification sensitivity (3) Acute hyponatremia: Code(s): E87.1 - Hypo-osmolality and hyponatremia Status: Acute Assessment and Plan: Euvolemic hyponatremia likely secondary to poor oral intake NS 0.9 Repeat BMP in the morning (4) FRANTZ (acute kidney injury): Code(s): N17.9 - Acute kidney failure, unspecified Status: Acute Assessment and Plan: Likely to be prerenal azotemia Repeat BMP in the morning IV fluids (5) Chronic interstitial lung disease: Code(s): J84.9 - Interstitial pulmonary disease, unspecified Status: Chronic Assessment and Plan: Appears to be stable Continue breathing treatments (6) Fatigue: Qualifiers: Fatigue type: chronic, unspecified Qualified Code(s): R53.82 - Chronic fatigue, unspecified Code(s): R53.83 - Other fatigue Status: Inactive Assessment and Plan: Patient also with unintentional weight loss of roughly 60 lb Likely to be multifactorial Also with poor appetite and poor oral intake (7) COPD (chronic obstructive pulmonary disease): Code(s): J44.9 - Chronic obstructive pulmonary disease, unspecified Status: Acute Assessment and Plan: Continue breathing treatment (8) GERD (gastroesophageal reflux disease): Code(s): K21.9 - Gastro-esophageal reflux disease without esophagitis Status: Acute Assessment and Plan: PPI as needed Subjective Date/time seen: 03/18/21 13:21 Patient 80-year-old female presented emergency department with complaint of hematuria and pain in her lower abdominal to further evaluate patient had CT scan of abdomen concerning for hydronephrosis patient was seen by urologist after closely reviewing CT scan and previous x-ray suspect patient may have mass along hydronephrosis and recommending cystoscopy for further evaluation which is scheduled for later today, this morning patient feeling better denies any abdominal pain nausea or vomiting fever or chills. Review of Systems Review of Systems: All systems reviewed & are unremarkable except as noted in HPI and below Exam Narrative: Exam Narrative: Elderly frail Patient is comfortable, NAD HEENT: eyes are clear and none icteric LUNGS:CTA HEART: RR S1S2 ABD: BS+, Soft and nontender Lower extremities: no edema SKIN: nonjaundiced Neuro: grossly intact. Objective Data Vital Signs Vital Signs: Vital Signs - 24 hr 03/17/21 17:33 03/17/21 18:12 03/17/21 21:46 Temperature 97.6 F Pulse Rate 82 80 86 Respiratory Rate 18 17 18 Blood Pressure 144/63 H 151/60 H 142/87 H Pulse Oximetry 100 100 99 03/18/21
--- NOTE | 2021-03-18 13:39 | WPDHPUPDATE1 ---
History and Physical Update Update Date/Time: 03/18/21 13:39 History and Physical has been reviewed, including an updated exam of the patient. There are NO changes in the patient's condition. Risks, benefits, and alternatives have been discussed and questions answered. Patient agrees to proceed with procedure. Proceed with cysto, right retrograde, right stent , possible ureteroscopy with biopsy
--- NOTE | 2021-03-18 14:16 | WPDANESEPPF ---
Anes - Initial Pre Proc Eval Procedure: Operation Date: 03/18/21 14:30 Proposed Procedures p Cystoscopy,Right Ureteroscopy,Right Stent Placement - Herbert Colunga MD Date/Time: 03/18/21 14:16 Surgeon: Ruthann Harmon MD Pre Op Diagnosis: pyelonephritis,hyponatremia Patient Data Age: 80 Gender: F Height: 5 ft 6 in Weight: 58 kg Last Vital Signs Temp 36.6 C 03/18/21 14:00 Pulse 95 03/18/21 14:00 Resp 20 03/18/21 14:00 BP 163/97 H 03/18/21 14:00 Pulse Ox 95 03/18/21 14:00 Allergies Allergy/AdvReac Type Severity Reaction Status Date / Time SEBASTIEN Inhibitors Allergy Unknown unknown Verified 03/17/21 17:34 ciprofloxacin Allergy Unknown unknown Verified 03/17/21 17:34 lisinopril Allergy Unknown unknown Verified 03/17/21 17:34 Sulfa (Sulfonamide AdvReac Intermediate DIARRHEA Verified 03/17/21 17:34 Antibiotics) codeine AdvReac Mild NAUSEA/VOMI Verified 03/17/21 17:34 TING decongestants AdvReac Other Uncoded 03/17/21 17:34 Home Medications Medication Instructions Recorded Confirmed Type aspirin 81 mg tablet,delayed 81 mg PO HS 10/13/19 03/17/21 History release ticwvyce-fpm-uciww acid 0.4 1 tablet PO DAILY 10/13/19 03/17/21 History mg-lycopene 300 mcg-lutein 250 mcg tablet albuterol sulfate 90 mcg/actuation 2 inhalation INHALATION Q4H PRN 03/10/20 03/17/21 Rx aerosol inhaler #8.5 gm clobetasol 1 applic TOPICAL BID PRN 04/12/20 03/17/21 History famotidine 40 mg PO DAILY 04/12/20 03/17/21 History ipratropium bromide 0.02 % 2.5 ml INHALATION Q6H PRN #300 ml 11/17/20 03/17/21 Rx solution for inhalation flurbiprofen 100 mg tablet 100 mg PO BID #180 tablet 02/25/21 03/17/21 Rx candesartan 16 mg tablet 16 mg PO DAILY #90 tablet 02/28/21 03/17/21 Rx levothyroxine 50 mcg tablet See Rx Instructions .ROUTE 02/28/21 03/17/21 Rx .COMPLEX #90 tablet docusate sodium [Colace] 50 mg PO BID PRN 03/17/21 03/17/21 History vitamin E 1 cap PO DAILY 03/17/21 03/17/21 History Laboratory Tests 03/17/21 03/17/21 03/18/21 13:20 15:12 06:18 WBC 8.0 K/mm3 K/mm3 (4.5-10.0) RBC 3.20 M/mm3 L M/mm3 (4.2-5.4) Hgb 7.7 g/dL L g/dL (12.0-15.0) Hct 25.1 % L % (37.0-47.0) MCV 78.4 fl L fl (80-100) MCH 24.1 pg L pg (26-34) MCHC 30.7 g/dl L g/dl (32-36) RDW 13.7 % % (11.5-14.5) Plt Count 443 k/mm3 H k/mm3 (150-375) MPV 8.3 fl fl (7.4-10.4) Immature Gran % (Auto) 0.4 % % (0-0.5) Neut % (Auto) 73.8 % H % (45.5-73.1) Lymph % (Auto) 14.6 % L % (18.3-44.2) [place] % (Auto) 7.9 % % (2.6-8.5) Eos % (Auto) 2.4 % % (0-4.4) Baso % (Auto) 0.9 % % (0.2-1.2) Lymph # (Auto) 1.16 K/mm3 K/mm3 (0.9-3.2) [place] # (Auto) 0.6 K/mm3 K/mm3 (0.1-0.6) Eos # (Auto) 0.2 K/mm3 K/mm3 (0-0.3) Baso # (Auto) 0.1 K/mm3 K/mm3 (0.0-0.1) Abs Immat Gran (auto) 0.03 K/mm3 K/mm3 (0.00-0.031) Absolute Neuts (auto) 5.9 K/mm3 K/mm3 (1.3-6.7) Absolute Nucleated RBC 0.0 K/mm3 K/mm3 (0.0-0.012) Nucleated RBC % 0.0 % % (0.0-0.2) Sodium Potassium Chloride Carbon Dioxide Anion Gap BUN Creatinine Estim Creat Clear Calc Estimated GFR Glucose Calcium TSH (Reflex) 1.730 uIU/mL uIU/mL (0.465-4.68) Urine Color Yellow (Yellow) Urine Appearance Cloudy H (Clear) Urine pH 6.0 (5.0-9.0) Ur Specific [place] 1.015 (1.001-1.035) Urine Protein 1+ mg/dL H mg/dL (Negative) Urine Glucose (UA) Negative mg/dL mg/dL (Negative) Urine Ketones Negative mg/dL mg/dL (Negative) Ur Blood (Man) 2+ H (Negative) Urine Nitrate Negative
[2021-03-18] MEDS: SODIUM CHLORIDE 0.9% IV 500 ML 30 ML IV CONT (14:31)
[2021-03-18] MEDS: LIDOCAINE HCL 2% GEL UROJET 10 ML PKG MUCOUS MEM (15:26)
--- NOTE | 2021-03-18 15:53 | PM.PROC ---
Procedure Note - Detailed Date of procedure: 03/18/21 Pre-op diagnosis: pyelonephritis,hyponatremia Right renal mass with hydro Post-op diagnosis: same Procedure performed: Cystoscopy, right retrograde pyelogram, right ureteroscopy, right ureteral stent placement Description of procedure: Patient is taken the operative suite and correctly identified. Once anesthesia was obtained she is placed in dorsal lithotomy position prepped draped usual sterile fashion. Twenty-two Stateless scope was inserted the bladder. There is multiple small bladder clots that we were retrieved. There were no bladder tumors noted. The right year orifice was cannulated with a [place] and a retrograde pyelogram was performed. There were no filling defects in the ureter. The collecting system would not fill out at this time. We did place a guidewire up into the collecting system. There was no evidence of purulence at this time. At this point we gently dilated with an 8/10 dilator. The mini flexible ureteral scope was then inserted up to the kidney. It was noted that the collecting system was distorted. We were able to manipulate into a somewhat upper pole lateral calyx and it had significant amount of necrotic tissue present. It was difficult to get a good look is there was quite a bit of cloudiness and slight amount of blood present. Could not adequately get any tissue for biopsy at this point time. A pyelogram was performed in this cavity and appeared to filled. At this point a guidewire was placed into this cavity. A 6 Stateless contour stent was then placed with the proximal end coiled in this cavity in the distal in the bladder. Bladder was drained 2% viscous lidocaine was inserted 16 Stateless Burt was placed. He is taken recovery stable condition. The Burt catheter can be removed in the morning. I discussed this briefly with the daughter. Patient will obtain another CT scan in a couple of weeks and have a consultation regarding further management. Patient may require actual nephrectomy to address this problem. Anesthesia: GLMA Surgeon: Herbert Colunga MD Drains: Yes Packing: No Pathology: none sent Complications: No immediate complications Condition: stable Disposition: PACU
[2021-03-18] MEDS: ONDANSETRON INJ 4 MG/2 ML VIAL IV PUSH (16:29)
[2021-03-19] VITALS (8 sets, daily range): BP systolic 115–151; BP diastolic 46–86; PULSE 81–103; RESP 16–20; TEMP 36.6–38.2; O2SAT 97–98
[2021-03-19] MEDS: SODIUM CHLORIDE 0.9% IV 1,000 ML 125 ML IV CONT ×2 (02:51→05:50)
[2021-03-19] MEDS: LEVOTHYROXINE SODIUM 50 MCG TABLET BY MOUTH (05:49)
[2021-03-19] MEDS: BENZONATATE 100 MG CAPSULE PO ×3 (05:50→20:05)
[2021-03-19 06:27] LABS: Hematocrit 24.1 % (37.0-47.0); Hemoglobin 7.6 g/dL (12.0-15.0); Mean Corpuscular HGB Conc 31.5 g/dl (32-36); Mean Corpuscular Hemoglobin 24.3 pg (26-34); Mean Platelet Volume 8.4 fl (7.4-10.4); Platelet Count Result 420 k/mm3 (150-375); Red Blood Count 3.13 M/mm3 (4.2-5.4); Red Cell Distribution Width 13.7 % (11.5-14.5); White Blood Count 12.5 K/mm3 (4.5-10.0)
[2021-03-19 07:00] LABS: Anion Gap 5 mmol/L (8-16); Blood Urea Nitrogen 15 mg/dL (7-17); Calcium 8.7 mg/dL (8.4-10.2); Carbon Dioxide 25 mmol/L (22-30); Chloride 98 mmol/L (98-107); Estimated CRCL calculation 27 ml/min; Estimated Glomerular Filt Rate 39; Glucose 96 mg/dL (65-105); Potassium 4.4 mmol/L (3.4-5.0); Sodium 128 mmol/L (137-145)
[2021-03-19] MEDS: FAMOTIDINE 20 MG TABLET 40 MG PO (08:37)
[2021-03-19 09:06] LABS: Magnesium 1.7 mg/dL (1.6-2.3)
[2021-03-19 09:35] LABS: Iron < 10 ug/dL (37-170)
[2021-03-19 09:45] LABS: Percent Iron Saturation 5 % (20-50)
[2021-03-19 10:22] LABS: Folic Acid > 20.0 ng/mL (2.76->20)
--- NOTE | 2021-03-19 10:58 | WPDANESPN ---
Anes - Prog Note Post-Op Date/Time: 03/19/21 10:58 Cardiovascular status: normal Respiratory status: normal Airway patency: baseline Mental status: baseline Post-Op hydration status: normal Vital Signs: Last Vital Signs Temp 37.3 C 03/19/21 08:00 Pulse 97 03/19/21 08:00 Resp 20 03/19/21 08:00 BP 143/60 H 03/19/21 08:00 Pulse Ox 98 03/19/21 08:00 Pain Score (VAS): 12/15 I/O: Intake & Output 03/18/21 03/19/21 03/19/21 23:59 07:59 15:59 Intake Total 675 2250 240 Output Total 500 600 Balance 175 1650 240 Laboratory Tests 03/19/21 05:56 03/19/21 05:56 03/18/21 03/19/21 03/19/21 06:18 05:56 05:56 WBC 12.5 H RBC 3.13 L Hgb 7.6 L Hct 24.1 L MCV 77.0 L MCH 24.3 L MCHC 31.5 L RDW 13.7 Plt Count 420 H MPV 8.4 Sodium 127 L 128 L Potassium 4.8 4.4 Chloride 98 98 Carbon Dioxide 22 25 Anion Gap 7 L 5 L BUN 22 H 15 D Creatinine 1.20 H 1.30 H Estim Creat Clear Calc 30 27 Estimated GFR 43 L 39 L Glucose 86 96 Calcium 9.4 8.7 Magnesium Iron TIBC % Saturation Ferritin Vitamin B12 Folate 03/19/21 03/19/21 07:57 07:57 WBC RBC Hgb Hct MCV MCH MCHC RDW Plt Count MPV Sodium Potassium Chloride Carbon Dioxide Anion Gap BUN Creatinine Estim Creat Clear Calc Estimated GFR Glucose Calcium Magnesium 1.7 Iron < 10 L TIBC 189 L % Saturation 5 L Ferritin 85.90 Vitamin B12 908.0 Folate > 20.0 H Microbiology 03/17/21 15:12 Urine Catheterized Urine Culture - Final Post-procedural complaints: none Patient Feedback: Patient satisfied with anesthetic care.
[2021-03-19] MEDS: ACETAMINOPHEN 325 MG TABLET 650 MG PO (12:25)
--- NOTE | 2021-03-19 13:43 | PM.IMPN ---
Progress Note: A&P Assessment and Plan (1) Hematuria: Qualifiers: Hematuria type: unspecified type Qualified Code(s): R31.9 - Hematuria, unspecified Code(s): R31.9 - Hematuria, unspecified Status: Inactive Assessment and Plan: Patient with episode of hematuria CT of abdomen and pelvis significant for hydronephrosis and likely pyelo of the right kidney Urology consult Supportive care 03/19/21 13:43 03/18 Patient 80-year-old female presented emergency department with complaint of hematuria and pain in her lower abdominal to further evaluate patient had CT scan of abdomen concerning for hydronephrosis patient was seen by urologist after closely reviewing CT scan and previous x-ray suspect patient may have mass along hydronephrosis and recommending cystoscopy for further evaluation which is scheduled for later today, this morning patient feeling better denies any abdominal pain nausea or vomiting fever or chills. 03/19 on 03/18 patient with right renal mass, patient patient had a cystoscopy right kidney was evaluated there was a dark bloody drainage stent was placed, urologist suspect patient may need nephrectomy and recommending repeat CT scan in 2 weeks to further evaluate, this morning patient complains of suprapubic pain, no nausea or vomiting fever or chills, Urine culture is growing non pathogenic organism since patient had surgical intervention will continue antibiotics for now will continue to monitor and further recommendation to follow. (2) Urinary tract infection: Qualifiers: Hematuria presence: without hematuria Urinary tract infection type: acute cystitis Qualified Code(s): N30.00 - Acute cystitis without hematuria Code(s): N39.0 - Urinary tract infection, site not specified Status: Acute Assessment and Plan: Started on Rocephin Await urine culture identification sensitivity (3) Acute hyponatremia: Code(s): E87.1 - Hypo-osmolality and hyponatremia Status: Inactive Assessment and Plan: Euvolemic hyponatremia likely secondary to poor oral intake NS 0.9 Repeat BMP in the morning (4) FRANTZ (acute kidney injury): Code(s): N17.9 - Acute kidney failure, unspecified Status: Acute Assessment and Plan: Likely to be prerenal azotemia Repeat BMP in the morning IV fluids (5) Chronic interstitial lung disease: Code(s): J84.9 - Interstitial pulmonary disease, unspecified Status: Chronic Assessment and Plan: Appears to be stable Continue breathing treatments (6) Fatigue: Qualifiers: Fatigue type: chronic, unspecified Qualified Code(s): R53.82 - Chronic fatigue, unspecified Code(s): R53.83 - Other fatigue Status: Inactive Assessment and Plan: Patient also with unintentional weight loss of roughly 60 lb Likely to be multifactorial Also with poor appetite and poor oral intake (7) COPD (chronic obstructive pulmonary disease): Code(s): J44.9 - Chronic obstructive pulmonary disease, unspecified Status: Acute Assessment and Plan: Continue breathing treatment (8) GERD (gastroesophageal reflux disease): Code(s): K21.9 - Gastro-esophageal reflux disease without esophagitis Status: Acute Assessment and Plan: PPI as needed Subjective Date/time seen: 03/19/21 13:43 03/18 Patient 80-year-old female presented emergency department with complaint of hematuria and pain in her lower abdominal to further evaluate patient had CT scan of abdomen concerning for hydronephrosis patient was seen by urologist after closely reviewing CT scan and previous x-ray suspect patient may have mass along hydronephrosis and recommending cystoscopy for further evaluation which is scheduled for later today, this morning patient feeling better denies any abdominal pain nausea or vomiting fever or chills. 03/19 on 03/18 patient with right renal mass, patient patient had a cystosc
--- NOTE | 2021-03-19 14:51 | WPDUROPN2 ---
Progress Note: A&P Assessment and Plan (1) Hydronephrosis: Code(s): N13.30 - Unspecified hydronephrosis Status: Acute Assessment and Plan: Postop day #1 right ureteral stent insertion. -continue IV antibiotics. The patient had a fever overnight. I recommend she have repeat urine cultures and blood cultures today. -given fever, will leave Burt catheter in place for now. Plan void trial prior to discharge -will plan follow-up with repeat CT scan to assess the right kidney in 2 weeks. We will determine additional steps in patient's treatment plan based on follow-up imaging (2) Right renal mass: Code(s): N28.89 - Other specified disorders of kidney and ureter Status: Acute (3) Acute pyelonephritis: Code(s): N10 - Acute pyelonephritis Status: Acute Subjective Subjective Date/Time Seen: 03/19/21 14:52 Patient is feeling well this morning however did have fever earlier today Exam Narrative: Exam Narrative: The patient is awake, alert, oriented. She is in no acute distress. Her breathing is unlabored. Her abdomen soft nontender nondistended. Patient has a Burt catheter draining clear urine Objective Data Vital Signs Vital Signs: Vital Signs - 24 hr 03/18/21 15:52 03/18/21 16:10 03/18/21 16:35 Temperature 36.6 C Pulse Rate 91 93 91 Respiratory Rate 18 18 22 H Blood Pressure 166/70 H 165/108 H 174/75 H Pulse Oximetry 100 100 97 03/18/21 16:50 03/18/21 17:00 03/18/21 17:15 Temperature 37.1 C 37.1 C Pulse Rate 96 92 94 Respiratory Rate 22 H 18 18 Blood Pressure 148/89 H 132/42 L 115/46 L Pulse Oximetry 96 95 96 03/18/21 17:45 03/18/21 18:45 03/18/21 20:00 Temperature 36.9 C 36.9 C 37.3 C Pulse Rate 93 87 91 Respiratory Rate 18 18 18 Blood Pressure 118/46 L 120/48 L 132/51 L Pulse Oximetry 95 95 96 03/19/21 00:00 03/19/21 04:00 03/19/21 08:00 Temperature 36.6 C 36.6 C 37.3 C Pulse Rate 84 103 H 97 Respiratory Rate 16 16 20 Blood Pressure 139/56 L 150/86 H 143/60 H Pulse Oximetry 98 97 98 03/19/21 12:00 03/19/21 12:25 Temperature 38.2 C H 38.2 C H Pulse Rate 103 H Respiratory Rate 20 Blood Pressure 149/60 H Pulse Oximetry 97 Intake/Output Intake/Output: Intake & Output 03/16/21 03/17/21 03/18/21 03/19/21 23:59 23:59 23:59 23:59 Intake Total 670 3015 2730 Output Total 1300 600 Balance 670 1715 2130 Meds/Results Medications: Active Medications Generic Name Dose Route Start Last Admin Trade Name Freq PRN Reason Stop Dose Admin Acetaminophen 650 mg 03/19/21 12:17 03/19/21 12:25 Acetaminophen 325 Mg Tablet PO 650 mg Q6H PRN Administration Mild Pain (1-3) or Fever Hydrocodone Bitart/Acetaminophen 1 tab 03/18/21 19:25 Hydrocodone/Acetaminophen (*Crx) 5-325 Mg Tablet PO Q6H PRN Pain Rated 4-6 Albuterol 2 puff 03/17/21 19:57 Albuterol Sulfate (*Sp) Aerosol 1 Puff INHALATION Q4H PRN shortness of breath or wheezing Benzonatate 100 mg 03/17/21 22:14 03/19/21 12:26 Benzonatate 100 Mg Capsule PO 100 mg TID PRN Administration Cough Clobetasol Propionate 1 applic 03/17/21 19:57 Clobetasol Propionate 0.05 % Cream.30 Gm. TOPICAL BID PRN Rash Docusate Sodium 100 mg 03/18/21 10:31 Docusate Sodium 100 Mg Capsule PO Q12HR PRN Constipation Famotidine 40 mg 03/18/21 09:00 03/19/21 08:37 Famotidine 20 Mg Tablet PO 40 mg DAILY LUZ MARINA Administration Ceftriaxone Sodium/Dextrose 1 gm in 50 mls @ 100 mls/hr 03/18/21 18:00 03/18/21 17:52 Rocephin 1 Gm/D5w 50 Ml IVPB Infused Q24H LUZ MARINA Infusion Sodium Chloride 1,000 mls @ 75 mls/hr 03/17/21 17:15 03/19/21 11:11 Normal Saline Iv IV CONT 75 mls/hr .[id number] LUZ MARINA Infusion Sodium Chloride 500 mls @ 30 mls/hr 03/18/21 14:20 03/19/21 05:51 Normal Saline Iv IV CONT Not Given .[id number] LUZ MARINA Ipratropium [place] 0.5 mg 03/17/21 19:57 Ipratropium Br 0.02% Inh So
[2021-03-19] MEDS: SODIUM CHLORIDE 0.9% IV 1,000 ML 75 ML IV CONT (17:48)
[2021-03-20 06:00] VITALS: BP 118/55; PULSE 82; RESP 16; TEMP 37.3; O2SAT 96
[2021-03-20 07:00] LABS: Potassium 4.1 mmol/L (3.4-5.0)
[2021-03-20 07:04] LABS: Anion Gap 3 mmol/L (8-16); Blood Urea Nitrogen 14 mg/dL (7-17); Calcium 8.3 mg/dL (8.4-10.2); Carbon Dioxide 25 mmol/L (22-30); Chloride 97 mmol/L (98-107); Estimated CRCL calculation 30 ml/min; Estimated Glomerular Filt Rate 43; Glucose 97 mg/dL (65-105); Sodium 125 mmol/L (137-145)
[2021-03-20 07:10] LABS: Hematocrit 21.4 % (37.0-47.0); Mean Corpuscular HGB Conc 31.8 g/dl (32-36); Mean Corpuscular Hemoglobin 24.9 pg (26-34); Mean Corpuscular Volume 78.4 fl (80-100); Mean Platelet Volume 8.5 fl (7.4-10.4); Platelet Count Result 380 k/mm3 (150-375); Red Blood Count 2.73 M/mm3 (4.2-5.4); Red Cell Distribution Width 14.1 % (11.5-14.5)
[2021-03-20 07:16] LABS: Hemoglobin 6.8 g/dL (12.0-15.0)
[2021-03-20] MEDS: SODIUM CHLORIDE 0.9% IV 1,000 ML 75 ML IV CONT ×2 (07:23→21:01)
[2021-03-20] MEDS: BENZONATATE 100 MG CAPSULE PO ×2 (08:56→17:27)
[2021-03-20] MEDS: FAMOTIDINE 20 MG TABLET 40 MG PO (08:56)
[2021-03-20] MEDS: LEVOTHYROXINE SODIUM 50 MCG TABLET BY MOUTH (08:57)
[2021-03-20 10:36] LABS: Hematocrit 22.2 % (37.0-47.0)
--- NOTE | 2021-03-20 11:41 | PM.IMPN ---
Progress Note: A&P Assessment and Plan (1) Hematuria: Qualifiers: Hematuria type: unspecified type Qualified Code(s): R31.9 - Hematuria, unspecified Code(s): R31.9 - Hematuria, unspecified Status: Inactive Assessment and Plan: Patient with episode of hematuria CT of abdomen and pelvis significant for hydronephrosis and likely pyelo of the right kidney Urology consult Supportive care 03/20/21 11:41 03/18 Patient 80-year-old female presented emergency department with complaint of hematuria and pain in her lower abdominal to further evaluate patient had CT scan of abdomen concerning for hydronephrosis patient was seen by urologist after closely reviewing CT scan and previous x-ray suspect patient may have mass along hydronephrosis and recommending cystoscopy for further evaluation which is scheduled for later today, this morning patient feeling better denies any abdominal pain nausea or vomiting fever or chills. 03/19 on 03/18 patient with right renal mass, patient patient had a cystoscopy right kidney was evaluated there was a dark bloody drainage stent was placed, urologist suspect patient may need nephrectomy and recommending repeat CT scan in 2 weeks to further evaluate, this morning patient complains of suprapubic pain, no nausea or vomiting fever or chills, Urine culture is growing non pathogenic organism since patient had surgical intervention will continue antibiotics for now will continue to monitor and further recommendation to follow. 03/20 s/p cystoscopy on 03/18 and had a fever of 100.7 on 03/20, d/w urologist will repeat blood and urine culture will follow, today patient hh dropped to 6.8 suspect from hematuria and acute surgery blood loose, patient is clinically stable, her urine is chante today, will monitor and if hh drops any further will transfuse 1 unit PRBC, will have PT/OT evaluate patient and furhter. (2) Urinary tract infection: Qualifiers: Hematuria presence: without hematuria Urinary tract infection type: acute cystitis Qualified Code(s): N30.00 - Acute cystitis without hematuria Code(s): N39.0 - Urinary tract infection, site not specified Status: Acute Assessment and Plan: Started on Rocephin Await urine culture identification sensitivity (3) Acute hyponatremia: Code(s): E87.1 - Hypo-osmolality and hyponatremia Status: Inactive Assessment and Plan: Euvolemic hyponatremia likely secondary to poor oral intake NS 0.9 Repeat BMP in the morning (4) FRANTZ (acute kidney injury): Code(s): N17.9 - Acute kidney failure, unspecified Status: Acute Assessment and Plan: Likely to be prerenal azotemia Repeat BMP in the morning IV fluids (5) Chronic interstitial lung disease: Code(s): J84.9 - Interstitial pulmonary disease, unspecified Status: Chronic Assessment and Plan: Appears to be stable Continue breathing treatments (6) Fatigue: Qualifiers: Fatigue type: chronic, unspecified Qualified Code(s): R53.82 - Chronic fatigue, unspecified Code(s): R53.83 - Other fatigue Status: Inactive Assessment and Plan: Patient also with unintentional weight loss of roughly 60 lb Likely to be multifactorial Also with poor appetite and poor oral intake (7) COPD (chronic obstructive pulmonary disease): Code(s): J44.9 - Chronic obstructive pulmonary disease, unspecified Status: Acute Assessment and Plan: Continue breathing treatment (8) GERD (gastroesophageal reflux disease): Code(s): K21.9 - Gastro-esophageal reflux disease without esophagitis Status: Acute Assessment and Plan: PPI as needed Subjective Date/time seen: 03/20/21 11:41 03/18 Patient 80-year-old female presented emergency department with complaint of hematuria and pain in her lower abdominal to further evaluate patient had CT scan of abdomen concerning for hydronephrosis patien
--- NOTE | 2021-03-20 13:11 | WPDUROPN2 ---
Progress Note: A&P Assessment and Plan (1) Hydronephrosis: Code(s): N13.30 - Unspecified hydronephrosis Status: Acute Assessment and Plan: Postop day #2 right ureteral stent insertion. -continue IV antibiotics. repeat urine cultures and blood cultures pending. -Plan Burt removal prior to discharge -anemia: consider blood transfusion per primary team -will plan follow-up with repeat CT scan to assess the right kidney in 2 weeks. We will determine additional steps in patient's treatment plan based on follow- (2) Right renal mass: Code(s): N28.89 - Other specified disorders of kidney and ureter Status: Acute (3) Acute pyelonephritis: Code(s): N10 - Acute pyelonephritis Status: Acute (4) Anemia: Code(s): D64.9 - Anemia, unspecified Status: Acute Subjective Subjective Date/Time Seen: 03/20/21 13:11 No new complaints Exam Narrative: Exam Narrative: Awake alert no acute distress Unlabored breathing Abdomen soft nontender nondistended Urine is pink, clear in Burt catheter Objective Data Vital Signs Vital Signs: Vital Signs - 24 hr 03/19/21 13:25 03/19/21 16:00 03/19/21 21:57 Temperature 37.8 C H 37.2 C 38.2 C H Pulse Rate 81 94 Respiratory Rate 20 16 Blood Pressure 115/46 L 151/59 H Pulse Oximetry 97 98 03/20/21 06:00 Temperature 37.3 C Pulse Rate 82 Respiratory Rate 16 Blood Pressure 118/55 L Pulse Oximetry 96 Intake/Output Intake/Output: Intake & Output 03/17/21 03/18/21 03/19/21 03/20/21 23:59 23:59 23:59 23:59 Intake Total 670 3015 4570 1340 Output Total 1300 1275 600 Balance 670 6185 9825 740 Meds/Results Medications: Active Medications Generic Name Dose Route Start Last Admin Trade Name Freq PRN Reason Stop Dose Admin Acetaminophen 650 mg 03/19/21 12:17 03/19/21 12:25 Acetaminophen 325 Mg Tablet PO 650 mg Q6H PRN Administration Mild Pain (1-3) or Fever Hydrocodone Bitart/Acetaminophen 1 tab 03/18/21 19:25 Hydrocodone/Acetaminophen (*Crx) 5-325 Mg Tablet PO Q6H PRN Pain Rated 4-6 Albuterol 2 puff 03/17/21 19:57 Albuterol Sulfate (*Sp) Aerosol 1 Puff INHALATION Q4H PRN shortness of breath or wheezing Benzonatate 100 mg 03/17/21 22:14 03/20/21 08:56 Benzonatate 100 Mg Capsule PO 100 mg TID PRN Administration Cough Clobetasol Propionate 1 applic 03/17/21 19:57 Clobetasol Propionate 0.05 % Cream.30 Gm. TOPICAL BID PRN Rash Docusate Sodium 100 mg 03/18/21 10:31 Docusate Sodium 100 Mg Capsule PO Q12HR PRN Constipation Famotidine 40 mg 03/18/21 09:00 03/20/21 08:56 Famotidine 20 Mg Tablet PO 40 mg DAILY LUZ MARINA Administration Ceftriaxone Sodium/Dextrose 1 gm in 50 mls @ 100 mls/hr 03/18/21 18:00 03/19/21 18:19 Rocephin 1 Gm/D5w 50 Ml IVPB Infused Q24H LUZ MARINA Infusion Sodium Chloride 1,000 mls @ 75 mls/hr 03/17/21 17:15 03/20/21 07:23 Normal Saline Iv IV CONT 75 mls/hr .[id number] LUZ MARINA Administration Ipratropium [place] 0.5 mg 03/17/21 19:57 Ipratropium Br 0.02% Inh Soln 0.5 Mg/2.5 Ml Vial INHALATION Q6H PRN shortness of breath or wheezing Levothyroxine Sodium 50 mcg 03/18/21 06:30 03/20/21 08:57 Levothyroxine Sodium 50 Mcg Tablet BY MOUTH 50 mcg DAILY@0630 LUZ MARINA Administration Morphine Sulfate 1 mg 03/18/21 19:25 Morphine Sulfate (*Crx) 2 Mg/Ml Inj IV PUSH Q4H PRN Pain Rated 7-10 Ondansetron HCl 4 mg 03/17/21 17:11 03/18/21 16:29 Ondansetron Inj 4 Mg/2 Ml Vial IV PUSH 4 mg Q4H PRN Administration Nausea Vitamin E 1,000 unit 03/18/21 09:00 03/20/21 08:57 Vitamin E 1,000 Unit Capsule PO 04/17/21 09:01 Not Given DAILY [facility] Radiology Results: ITS Impressions Chest X-Ray 03/17/21 15:44 IMPRESSION: Chronic interstitial lung disease. Abdomen/Pelvis CT 03/17/21 16:31 IMPRESSION: 1. Severe right hydronephrosis
[2021-03-20 14:00] VITALS: BP 142/52; PULSE 97; RESP 20; TEMP 37.6; O2SAT 99
[2021-03-20 14:32] LABS: Hemoglobin 6.9 g/dL (12.0-15.0)
[2021-03-20 21:46] VITALS: BP 141/54; PULSE 94; RESP 18; TEMP 37.1; O2SAT 95
[2021-03-21] VITALS (7 sets, daily range): BP systolic 126–143; BP diastolic 48–73; PULSE 70–99; RESP 16–20; TEMP 36.6–37.1; O2SAT 95–98
[2021-03-21] MEDS: LEVOTHYROXINE SODIUM 50 MCG TABLET BY MOUTH (06:16)
[2021-03-21 06:24] LABS: Hematocrit 21.9 % (37.0-47.0); Mean Corpuscular HGB Conc 31.1 g/dl (32-36); Mean Corpuscular Hemoglobin 24.2 pg (26-34); Mean Corpuscular Volume 77.9 fl (80-100); Mean Platelet Volume 8.3 fl (7.4-10.4); Platelet Count Result 334 k/mm3 (150-375); Red Blood Count 2.81 M/mm3 (4.2-5.4); Red Cell Distribution Width 13.8 % (11.5-14.5); White Blood Count 14.9 K/mm3 (4.5-10.0)
[2021-03-21 06:33] LABS: Hemoglobin 6.8 g/dL (12.0-15.0)
[2021-03-21 06:49] LABS: Anion Gap 5 mmol/L (8-16); Blood Urea Nitrogen 13 mg/dL (7-17); Calcium 8.2 mg/dL (8.4-10.2); Carbon Dioxide 24 mmol/L (22-30); Chloride 95 mmol/L (98-107); Estimated CRCL calculation 30 ml/min; Estimated Glomerular Filt Rate 43; Glucose 101 mg/dL (65-105); Sodium 124 mmol/L (137-145)
[2021-03-21] MEDS: FAMOTIDINE 20 MG TABLET 40 MG PO (08:32)
[2021-03-21] MEDS: DOCUSATE SODIUM 100 MG CAPSULE PO (08:33)
--- NOTE | 2021-03-21 09:01 | WPDUROPN2 ---
Progress Note: A&P Assessment and Plan (1) Hydronephrosis: Code(s): N13.30 - Unspecified hydronephrosis Status: Acute Assessment and Plan: Stent in place, will plan to get a repeat CT scan in 2 weeks, then follow up with Dr. Colunga. No further evaluation at this time. Ok to do a voiding trial today and remove frazier. (2) Right renal mass: Code(s): N28.89 - Other specified disorders of kidney and ureter Status: Acute Subjective Subjective Date/Time Seen: POD #3 Cystoscopy, Right Ureteroscopy with stent placement, retrograde pyelogram. Patient is improving, she feels good, urine is clear. She is afebrile, WBC was declining but did increase slightly this morning. Repeat urine culture is negative. Review of Systems Cardiovascular: Cardiovascular: Denies chest pain Respiratory: Respiratory: Reports no additional respiratory complaints Gastrointestinal: Gastrointestinal: Denies abdominal pain, Denies nausea and Denies vomiting Genitourinary: Genitourinary: Denies hematuria Exam Resp: Effort & Inspection: normal respiratory effort Cardio: Rate: regular rate GI: GI Palp: Yes Soft to palpation and No Tenderness to palpation present (GI) : General: Yes no CVA tenderness Urinary Catheter: Urinary Catheter: patent and draining and urine clear Extrem: General: no edema Objective Data Vital Signs Vital Signs: Vital Signs - 24 hr 03/20/21 14:00 03/20/21 21:46 03/21/21 05:32 Temperature 99.7 F H 98.8 F 97.9 F Pulse Rate 97 94 85 Respiratory Rate 20 18 17 Blood Pressure 142/52 H 141/54 H 129/52 L Pulse Oximetry 99 95 95 Intake/Output Intake/Output: Intake & Output 03/18/21 03/19/21 03/20/21 03/21/21 23:59 23:59 23:59 23:59 Intake Total 3015 4570 3720 100 Output Total 1300 1275 1800 650 Balance 1715 3295 1920 -550 Meds/Results Medications: Active Medications Generic Name Dose Route Start Last Admin Trade Name Freq PRN Reason Stop Dose Admin Acetaminophen 650 mg 03/19/21 12:17 03/19/21 12:25 Acetaminophen 325 Mg Tablet PO 650 mg Q6H PRN Administration Mild Pain (1-3) or Fever Hydrocodone Bitart/Acetaminophen 1 tab 03/18/21 19:25 Hydrocodone/Acetaminophen (*Crx) 5-325 Mg Tablet PO Q6H PRN Pain Rated 4-6 Albuterol 2 puff 03/17/21 19:57 Albuterol Sulfate (*Sp) Aerosol 1 Puff INHALATION Q4H PRN shortness of breath or wheezing Benzonatate 100 mg 03/17/21 22:14 03/20/21 17:27 Benzonatate 100 Mg Capsule PO 100 mg TID PRN Administration Cough Clobetasol Propionate 1 applic 03/17/21 19:57 Clobetasol Propionate 0.05 % Cream.30 Gm. TOPICAL BID PRN Rash Docusate Sodium 100 mg 03/18/21 10:31 03/21/21 08:33 Docusate Sodium 100 Mg Capsule PO 100 mg Q12HR PRN Administration Constipation Famotidine 40 mg 03/18/21 09:00 03/21/21 08:32 Famotidine 20 Mg Tablet PO 40 mg DAILY LUZ MARINA Administration Ceftriaxone Sodium/Dextrose 1 gm in 50 mls @ 100 mls/hr 03/18/21 18:00 03/20/21 17:57 Rocephin 1 Gm/D5w 50 Ml IVPB Infused Q24H LUZ MARINA Infusion Sodium Chloride 1,000 mls @ 75 mls/hr 03/17/21 17:15 03/20/21 21:01 Normal Saline Iv IV CONT 75 mls/hr .[id number] LUZ MARINA Administration Ipratropium [place] 0.5 mg 03/17/21 19:57 Ipratropium Br 0.02% Inh Soln 0.5 Mg/2.5 Ml Vial INHALATION Q6H PRN shortness of breath or wheezing Levothyroxine Sodium 50 mcg 03/18/21 06:30 03/21/21 06:16 Levothyroxine Sodium 50 Mcg Tablet BY MOUTH 50 mcg DAILY@0630 LUZ MARINA Administration Morphine Sulfate 1 mg 03/18/21 19:25 Morphine Sulfate (*Crx) 2 Mg/Ml Inj IV PUSH Q4H PRN Pain Rated 7-10 Ondansetron HCl 4 mg 03/17/21 17:11 03/18/21 16:29 Ondansetron Inj 4 Mg/2 Ml Vial IV PUSH 4 mg Q4H PRN Administration Nausea Vitamin E 1,000 unit 03/18/21 09:00 03/21/21 08:34 Vitamin E 1,000 Unit Capsule PO 04/17/21 09:01 Not Given DAILY [facility]
--- NOTE | 2021-03-21 11:46 | PCNFU ---
Nutrition Follow-Up Complete: Unintended weight loss as related to poor po intake as evidenced by significant weight loss of 20% Goal: Meet estimated nutritional needs Patient is progressing towards goal. Pt current nutrition is Regular diet. Last recorded weight is 58 kg,no new weight to report. Bowel Motility:+BM reported 03/18 Labs Reviewed:Hgb 6.8,Hct 21.9,Na 124,GFR 43,Cr 1.2 Meds Noted:Synthroid, Rocephin,Colace,Pepsid,Zofran. Additional Notes:Patient seen today for nutrition follow up. Patient ate about 50% of a regular tray today for breakfast. Oral Intake has been 25-100% of meals. Patient states her orange and apple juice were really sweet . She is getting 1 unit of blood today, Hgb 6.8. Agree with diet orders. Monitoring; Will monitor every 5 days.
[2021-03-21] MEDS: SODIUM CHLORIDE 0.9% IV 1,000 ML 75 ML IV CONT (11:59)
[2021-03-21] MEDS: SODIUM CHLORIDE 0.9% IV 250 ML 30 ML IV CONT (12:50)
--- NOTE | 2021-03-21 14:11 | PCPTNOTE ---
Attempted PT evaluation. Patient refusing therapy despite education stating she has HH coming to her house and that's good enough. Will follow. Bettina Mcwilliams, NONAT
--- NOTE | 2021-03-21 15:42 | P.PNIM_ITS ---
Progress Note: A&P Assessment and Plan (1) Hematuria: Qualifiers: Hematuria type: unspecified type Qualified Code(s): R31.9 - Hematuria, unspecified Code(s): R31.9 - Hematuria, unspecified Status: Inactive Assessment and Plan: Patient with episode of hematuria CT of abdomen and pelvis significant for hydronephrosis and likely pyelo of the right kidney Urology consult Supportive care 03/21/21 15:42 03/18 Patient 80-year-old female presented emergency department with complaint of hematuria and pain in her lower abdominal to further evaluate patient had CT scan of abdomen concerning for hydronephrosis patient was seen by urologist after closely reviewing CT scan and previous x-ray suspect patient may have mass along hydronephrosis and recommending cystoscopy for further evaluation which is scheduled for later today, this morning patient feeling better denies any abdominal pain nausea or vomiting fever or chills. 03/19 on 03/18 patient with right renal mass, patient patient had a cystoscopy right kidney was evaluated there was a dark bloody drainage stent was placed, urologist suspect patient may need nephrectomy and recommending repeat CT scan in 2 weeks to further evaluate, this morning patient complains of suprapubic pain, no nausea or vomiting fever or chills, Urine culture is growing non pathogenic organism since patient had surgical intervention will continue antibiotics for now will continue to monitor and further recommendation to follow. 03/20 s/p cystoscopy on 03/18 and had a fever of 100.7 on 03/20, d/w urologist will repeat blood and urine culture will follow, today patient hh dropped to 6.8 suspect from hematuria and acute surgery blood loose, patient is clinically stable, her urine is chante today, will monitor and if hh drops any further will transfuse 1 unit PRBC, will have PT/OT evaluate patient and further. 03/21 s/p cystoscopy on 03/18 and had a fever of 100.7 on 03/20 and no fever since, her Hgb is remains at 6.8 and unable to participate in PT or any activities, stats too tired and feels weak, had been refusing transfusion however today patient has agreed to take 1 unit PRBC, will order it, patient was seen by her urologist instructed to remove Burt do avoiding trial, urine and blood culture still no growth, will monitor, will have PT/OT evaluate the patient and further recommendation to follow. (2) Urinary tract infection: Qualifiers: Hematuria presence: without hematuria Urinary tract infection type: acute cystitis Qualified Code(s): N30.00 - Acute cystitis without hematuria Code(s): N39.0 - Urinary tract infection, site not specified Status: Acute Assessment and Plan: Started on Rocephin Await urine culture identification sensitivity (3) Acute hyponatremia: Code(s): E87.1 - Hypo-osmolality and hyponatremia Status: Inactive Assessment and Plan: Euvolemic hyponatremia likely secondary to poor oral intake NS 0.9 Repeat BMP in the morning (4) FRANTZ (acute kidney injury): Code(s): N17.9 - Acute kidney failure, unspecified Status: Acute Assessment and Plan: Likely to be prerenal azotemia Repeat BMP in the morning IV fluids (5) Chronic interstitial lung disease: Code(s): J84.9 - Interstitial pulmonary disease, unspecified Status: Chronic Assessment and Plan: Appears to be stable Continue breathing treatments (6) Fatigue: Qualifiers: Fatigue type: chronic, unspecified Qualified Code(s): R53.82 - Chronic fatigue, unspecified Code(s): R53.83 - Other fatigue Status: I
[2021-03-21] MEDS: ACETAMINOPHEN 325 MG TABLET 650 MG PO (16:35)
[2021-03-21] MEDS: BENZONATATE 100 MG CAPSULE PO (16:35)
[2021-03-22] MEDS: BENZONATATE 100 MG CAPSULE PO ×2 (02:19→09:34)
[2021-03-22] MEDS: SODIUM CHLORIDE 0.9% IV 1,000 ML 75 ML IV CONT (02:22)
[2021-03-22 05:00] VITALS: BP 141/58; PULSE 90; RESP 18; TEMP 36.9; O2SAT 97
[2021-03-22] MEDS: LEVOTHYROXINE SODIUM 50 MCG TABLET BY MOUTH (05:39)
[2021-03-22 06:06] LABS: Hemoglobin 8.4 g/dL (12.0-15.0); Mean Corpuscular HGB Conc 32.3 g/dl (32-36); Mean Corpuscular Hemoglobin 25.1 pg (26-34); Mean Corpuscular Volume 77.8 fl (80-100); Mean Platelet Volume 8.3 fl (7.4-10.4); Platelet Count Result 378 k/mm3 (150-375); Red Blood Count 3.34 M/mm3 (4.2-5.4); Red Cell Distribution Width 14.3 % (11.5-14.5); White Blood Count 15.2 K/mm3 (4.5-10.0)
[2021-03-22 06:19] LABS: Anion Gap 6 mmol/L (8-16); Blood Urea Nitrogen 17 mg/dL (7-17); Calcium 8.2 mg/dL (8.4-10.2); Carbon Dioxide 24 mmol/L (22-30); Chloride 99 mmol/L (98-107); Estimated CRCL calculation 35 ml/min; Estimated Glomerular Filt Rate 53; Glucose 111 mg/dL (65-105); Sodium 129 mmol/L (137-145)
[2021-03-22] MEDS: FAMOTIDINE 20 MG TABLET 40 MG PO (08:07)
--- NOTE | 2021-03-22 10:54 | PCOTNOTE ---
Patient continuing to decline participation with therapy at this time. Will attempt at later time.
--- NOTE | 2021-03-22 12:50 | PM.DS ---
DS: Admitting Diagnosis Admitting Diagnosis Admitting Diagnosis: Chief Complaint: Hematuria DS: Discharge Diagnosis Discharge Diagnosis (1) Hematuria: Qualifiers: Hematuria type: unspecified type Qualified Code(s): R31.9 - Hematuria, unspecified Code(s): R31.9 - Hematuria, unspecified Status: Inactive Assessment and Plan: Patient with episode of hematuria CT of abdomen and pelvis significant for hydronephrosis and likely pyelo of the right kidney Urology consult Supportive care 03/21/21 15:42 03/18 Patient 80-year-old female presented emergency department with complaint of hematuria and pain in her lower abdominal to further evaluate patient had CT scan of abdomen concerning for hydronephrosis patient was seen by urologist after closely reviewing CT scan and previous x-ray suspect patient may have mass along hydronephrosis and recommending cystoscopy for further evaluation which is scheduled for later today, this morning patient feeling better denies any abdominal pain nausea or vomiting fever or chills. 03/19 on 03/18 patient with right renal mass, patient patient had a cystoscopy right kidney was evaluated there was a dark bloody drainage stent was placed, urologist suspect patient may need nephrectomy and recommending repeat CT scan in 2 weeks to further evaluate, this morning patient complains of suprapubic pain, no nausea or vomiting fever or chills, Urine culture is growing non pathogenic organism since patient had surgical intervention will continue antibiotics for now will continue to monitor and further recommendation to follow. 03/20 s/p cystoscopy on 03/18 and had a fever of 100.7 on 03/20, d/w urologist will repeat blood and urine culture will follow, today patient hh dropped to 6.8 suspect from hematuria and acute surgery blood loose, patient is clinically stable, her urine is chante today, will monitor and if hh drops any further will transfuse 1 unit PRBC, will have PT/OT evaluate patient and further. 03/21 s/p cystoscopy on 03/18 and had a fever of 100.7 on 03/20 and no fever since, her Hgb is remains at 6.8 and unable to participate in PT or any activities, stats too tired and feels weak, had been refusing transfusion however today patient has agreed to take 1 unit PRBC, will order it, patient was seen by her urologist instructed to remove Burt do avoiding trial, urine and blood culture still no growth, will monitor, will have PT/OT evaluate the patient and further recommendation to follow. (2) Urinary tract infection: Qualifiers: Hematuria presence: without hematuria Urinary tract infection type: acute cystitis Qualified Code(s): N30.00 - Acute cystitis without hematuria Code(s): N39.0 - Urinary tract infection, site not specified Status: Acute Assessment and Plan: Started on Rocephin Await urine culture identification sensitivity (3) Acute hyponatremia: Code(s): E87.1 - Hypo-osmolality and hyponatremia Status: Inactive Assessment and Plan: Euvolemic hyponatremia likely secondary to poor oral intake NS 0.9 Repeat BMP in the morning (4) FRANTZ (acute kidney injury): Code(s): N17.9 - Acute kidney failure, unspecified Status: Acute Assessment and Plan: Likely to be prerenal azotemia Repeat BMP in the morning IV fluids (5) Chronic interstitial lung disease: Code(s): J84.9 - Interstitial pulmonary disease, unspecified Status: Chronic Assessment and Plan: Appears to be stable Continue breathing treatments (6) Fatigue: Qualifiers: Fatigue type: chronic, unspecified Qualified Code(s): R53.82 - Chronic fatigue, unspecified Code(s): R53.83 - Other fatigue Status: Inactive Assessment and Plan: Patient also with unintentional weight loss of roughly 60 lb Likely to be multifactorial Also with poor appetite and poor oral intake (7) COPD (chronic obstructive pulmonary diseas
--- NOTE | 2021-03-22 13:05 | PCPTNOTE ---
11:45 Pt willing to participate w/ therapy. Completed eval. Transfers w/ CGA. Ambulated 35 ft and 25 ft w/ wheeled walker and CGA. Recommend Home Health PT at discharge.
[2021-03-22 14:00] VITALS: BP 146/52; PULSE 80; RESP 20; TEMP 37.1; O2SAT 100
== END 2021-03-22 15:30 | disposition home health service (06) | DRG 660 ==
LOC: ANHED 15:32 → ANH3MEDSUR 23:04
PROVIDERS: Emergency Medicine; Urology; Admitting Provider Internal Medicine; Emergency Provider General Practice; PCP Internal Medicine; Visit Provider Family Medicine
PROC: 0T768DZ Dilation of Right Ureter with Intraluminal Device, Via Natural or Artificial Opening Endoscopic (ICD-10-PCS; CPT 52352; principal; 2021-03-18 14:30)
DX: N13.6 Pyonephrosis (principal); J84.9 Interstitial pulmonary disease, unspecified; E87.1 Hypo-osmolality and hyponatremia; N28.89 Other specified disorders of kidney and ureter; N17.9 Acute kidney failure, unspecified; R53.82 Chronic fatigue, unspecified; J44.9 Chronic obstructive pulmonary disease, unspecified; K21.9 Gastro-esophageal reflux disease without esophagitis; R63.4 Abnormal weight loss; Z68.20 Body mass index [BMI] 20.0-20.9, adult; I10 Essential (primary) hypertension; R31.9 Hematuria, unspecified; E03.9 Hypothyroidism, unspecified; K58.9 Irritable bowel syndrome, unspecified; D50.9 Iron deficiency anemia, unspecified; E78.2 Mixed hyperlipidemia; M89.49 Other hypertrophic osteoarthropathy, multiple sites; L40.9 Psoriasis, unspecified; M48.00 Spinal stenosis, site unspecified; Z96.643 Presence of artificial hip joint, bilateral; Z90.710 Acquired absence of both cervix and uterus; Z90.49 Acquired absence of other specified parts of digestive tract; Z87.891 Personal history of nicotine dependence
CPT/HCPCS: 36415; 36430; 71046; 74176; 74177; 74420; 80048; 80053; 81001; 82607; 82728; 82746; 83540; 83550; 83735; 84443; 85014; 85018; 85025; 85027; 86850; 86900; 86901; 86920; 87040; 87086; 87088; 93005; 96360; 97161; 97165; 99212; 99285; A9270; C1758; C1769; C2617; G0463; J0131; J0696; J2370; J2405; J2704; J3010; J7030; J7040; J7050; P9016; Q9966; Q9967

== ENCOUNTER 2021-04-01 10:58 | Outpatient (NON) | payer MEDICARE, BC, SELFPAY ==
[2021-04-01 12:49] LABS: Sodium 131 mmol/L (137-145)
== END 2021-04-01 10:59 | disposition home or self-care (01) ==
LOC: HOME HLTH 11:01
PROVIDERS: PCP Internal Medicine; Visit Provider Internal Medicine
DX: N10 Acute pyelonephritis (principal); N13.30 Unspecified hydronephrosis; N30.00 Acute cystitis without hematuria; Z43.6 Encounter for attention to other artificial openings of urinary tract
CPT/HCPCS: 84295

== ENCOUNTER 2021-04-01 15:52 | Outpatient (CLI) | payer MEDICARE, BC, SELFPAY ==
--- NOTE | ~2021-04-01 | CT_ITS ---
EXAMINATION: CT abdomen pelvis wo/w con DATE: 04/01/2021 16:35 INDICATION: Pyelonephritis and hematuria TECHNIQUE: Computed tomography (CT) of the abdomen and pelvis was performed without intravenous contr ast. CT of the abdomen and pelvis was then performed with a total of 130 mL Omnipaque-350 intravenous contrast using a double-bolus technique for simultaneous opacification of the renal parenchyma and r enal collecting system. Automated exposure control and iterative reconstruction technique were employ ed. The dose-length product was 663.60 mGy-cm. COMPARISON: 03/17/2021 FINDINGS: Their course reticular opacities with honeycombing at the periphery of the bilateral lung bases consi stent with usual interstitial pneumonia (UIP) pattern chronic interstitial lung disease. Cardiomegaly and new small pericardial effusion. Atherosclerotic coronary artery ossification. Ectasia of the asc ending thoracic aorta measuring up to 4.4 cm in maximal diameter. Cholecystectomy clips the gallbladd er fossa. Liver, spleen, pancreas and bilateral adrenal glands are normal. Interval placement of a right internal ureteral stent with loops formed in the right trigonal region of the bladder and in the superior the dilated and distorted upper pole calyx of the right kidney wit h persistent severe hydronephrosis. The right kidney enhances but to a lesser degree than the left ki dney with no discernible excreted contrast at the right renal collecting system. Bilateral renal cyst s, the larger a 7 cm exophytic cyst at the lower pole of the right kidney. Again seen are couple enha ncing nodules measuring 1.9 x 1.1 cm and 2.5 x 1.7 cm situated between the right kidney, the posterio r margin of the inferior vena cava and the right anterolateral margin of the L1 vertebral body. The r ight ureter is delineated by the course of the catheter and remains lateral to the pair of nodules wh ich likely represent enlarged lymph nodes which could be either reactive or metastatic. There is no u rolithiasis. Moderate amount of stool throughout the colon. Moderate diverticulosis with descending and sigmoid co ranjit predominance and without adjacent inflammatory change to suggest diverticulitis. No bowel obstruc tion. The uterus is not identified and has likely been surgically resected. No free intraperitoneal g as or fluid. Severe thoracolumbar spondylosis. Partially visualized right total hip arthroplasty. IMPRESSION: 1. Persistent severe right hydronephrosis with architectural distortion and parenchymal volume loss a t the upper pole. A right internal ureteral stent however has been placed with the proximal loop form ed within the dilated upper pole calyx. 2. A couple enhancing right paracaval lymph nodes position superomedial to the proximal most right ur eter which could represent either reactive or metastatic lymph nodes. 3. Cardiomegaly with new small pericardial effusion. 4. UIP pattern chronic interstitial lung disease. 5. Indeterminate tubular ectasia of the ascending thoracic aorta measuring up to 4.4 cm. Reviewed, dictated and finalized at location A. IMPRESSION: 1. Persistent severe right hydronephrosis with architectural distortion and par enchymal volume loss at the upper pole. A right internal ureteral stent however has been placed with the proximal loop formed within the dilated upper pole ca lyx. 2. A couple enhancing right paracaval lymph nodes position superomedial to the proximal most right ureter which could represent either reactive or metastatic lymph nodes. 3. Cardiomegaly with new small pericardial effusion. 4. UIP pattern chronic interstitial lung disease. 5. Indeterminate tubular ectasia of the ascending thoracic aorta measuring up t o 4.4 cm.
== END 2021-04-01 15:53 | disposition home or self-care (01) ==
LOC: ANHIMG 15:53
PROVIDERS: PCP Internal Medicine; Visit Provider Nurse Practitioner Adult Health
DX: N28.89 Other specified disorders of kidney and ureter (principal); N13.30 Unspecified hydronephrosis; Z96.0 Presence of urogenital implants; R59.0 Localized enlarged lymph nodes; I51.7 Cardiomegaly; I31.3 Pericardial effusion (noninflammatory); J84.9 Interstitial pulmonary disease, unspecified; I77.810 Thoracic aortic ectasia
CPT/HCPCS: 74178; 84295; Q9967

== ENCOUNTER 2021-04-19 10:47 | Outpatient (NON) | payer MEDICARE, BC, SELFPAY ==
[2021-04-19 11:13] LABS: Anion Gap 5 mmol/L (8-16); Blood Urea Nitrogen 24 mg/dL (7-17); Calcium 9.3 mg/dL (8.4-10.2); Carbon Dioxide 31 mmol/L (22-30); Chloride 95 mmol/L (98-107); Estimated Glomerular Filt Rate 36; Glucose 85 mg/dL (65-105); Potassium 4.7 mmol/L (3.4-5.0); Sodium 131 mmol/L (137-145)
== END 2021-04-19 10:48 | disposition home or self-care (01) ==
PROVIDERS: PCP Internal Medicine; Visit Provider Internal Medicine
DX: E87.1 Hypo-osmolality and hyponatremia (principal); N10 Acute pyelonephritis; N17.9 Acute kidney failure, unspecified; N30.00 Acute cystitis without hematuria
CPT/HCPCS: 80048

== ENCOUNTER 2021-05-02 12:50 | Outpatient (CLI) | payer MEDICARE, BC, SELFPAY ==
--- NOTE | ~2021-05-02 | NM_ITS ---
EXAMINATION: YOJANA carter renal scan DATE: 05/02/2021 14:13 INDICATION: Right-sided hydronephrosis. TECHNIQUE: 8.4 mCi Tc-99m MAG3 was administered IV. 40 mg furosemide was administered IV immediately afterward. The patient was scanned in the supine position. A posterior abdominal radionuclide angiog cheryl was obtained. A subsequent time course of static images of the kidneys, ureters, and bladder was obtained. COMPARISON: CT abdomen and pelvis 04/01/2021 FINDINGS: The posterior abdominal radionuclide angiogram and sequential static images show normal siz e, position, and morphology of the left kidney. Peak renal parenchymal uptake was 2 min in right kidn ey and 2 min in left kidney (normal peak 3-5 minutes). The relative early renal uptake was 10% on th e right and 90% on the left (<40% is abnormal). No abnormalities of the ureters or bladder are seen. T1/2 for clearance of activity from the right kidney and proximal collecting system was >>20 minutes. T1/2 for clearance of activity from the left kidney and proximal collecting system was 20 minutes. IMPRESSION: 1. Severely decreased right kidney function, which is 10% of total renal function. 2. Delayed contrast clearance from left kidney, likely secondary to decreased kidney function. Reviewed, dictated and finalized at location A. IMPRESSION: 1. Severely decreased right kidney function, which is 10% of total renal funct ion. 2. Delayed contrast clearance from left kidney, likely secondary to decreased kidney function.
== END 2021-05-02 12:51 | disposition home or self-care (01) ==
PROVIDERS: PCP Internal Medicine; Visit Provider Urology
DX: N13.30 Unspecified hydronephrosis (principal)
CPT/HCPCS: 78708; A9562; J1940

== ENCOUNTER 2021-06-20 16:11 | Inpatient (IN) | payer MEDICARE, BC, SELFPAY ==
[2021-06-20] VITALS (23 sets, daily range): BP systolic 101–158; BP diastolic 55–83; PULSE 18–104; RESP 16–23; TEMP 36.3; O2SAT 90–100
--- NOTE | ~2021-06-20 | CT_ITS ---
EXAMINATION: CT abdomen pelvis w con DATE: 06/20/2021 20:30 INDICATION: Nonlocalized abdominal pain TECHNIQUE: Computed tomography (CT) of the abdomen and pelvis was performed with 100 cc Omnipaque 350 intravenous contrast. Automated exposure control and iterative reconstruction technique were employe d. Exam dose: 454.41 mGy-cm total exam DLP. COMPARISON: 04/01/2021 CT abdomen pelvis FINDINGS: Coarse septal soft tissue thickening and honeycombing predominating in the peripheral lower lung zones consistent with usual interstitial pneumonia chronic interstitial lung disease. Cardiomegaly. Left and right coronary artery calcifications. No pericardial or pleural effusion. Status post cholecystectomy. No hepatic, splenic, pancreatic or adrenal space-occupying mass lesion i s detected. There is highly likely malignant large complex solid and cystic mass of the right kidney with probabl e inferior vena cava malignant invasion. Consider MR correlation. A right nephrostomy catheter is present. Approximately 6.5 cm lower pole right renal cyst. Another cystic mass is noted at the lateral aspect of the right kidney. The left kidney is unremarkable. There is atherosclerotic calcification of the abdominal aorta and aortic branches. No abdominal aorti c aneurysm. Numerous diverticula of the colon; no CT evidence of diverticulitis. No bowel obstruction or intraper itoneal free air. Possible soft tissue thickening in the rectum, particularly posteriorly. Recommend clinical correlati on there is a rectal carcinoma. Status post right total hip arthroplasty. Diffuse idiopathic skeletal hyperostosis of the thoracic spine. Severe degenerative disc disease throughout the lumbar and lumbosacral spine. IMPRESSION: Suspected aggressive malignant complex right renal mass likely invading the inferior hernán a cava Soft tissue prominence in the rectal area; cannot exclude rectal carcinoma. Recommend clinical correl ation including digital examination and perhaps barium enema or colonoscopy as clinically indicated Reviewed, dictated and finalized at [facility]. Reviewed, dictated and finalized at location A. IMPRESSION: Suspected aggressive malignant complex right renal mass likely inv ading the inferior vena cava Soft tissue prominence in the rectal area; cannot exclude rectal carcinoma. Rec ommend clinical correlation including digital examination and perhaps barium en lor or colonoscopy as clinically indicated
--- NOTE | ~2021-06-20 | XR_ITS ---
EXAMINATION: XR chest 2V DATE: 06/20/2021 16:51 INDICATION: COPD presenting with 3 days of weakness TECHNIQUE: frontal and lateral views of the chest were obtained. COMPARISON: Chest radiograph dated 03/17/[address] dated 12/03/2020 FINDINGS: Persistent diffuse bilateral peripheral and lower lung predominant coarse reticular opacities with sm all lucencies correspond to honeycombing on prior CT consistent with usual interstitial pneumonia (UI P) pattern chronic interstitial lung disease. No new airspace opacities, pleural effusion or pneumoth orax. Mild cardiomegaly. Calcified AP window lymph nodes consistent with old granulomatous disease. P roximal loop of a right internal ureteral stent projects over the upper pole of the right kidney. Cho lecystectomy clips in the right upper quadrant. IMPRESSION: 1. Stable appearance of peripheral and lower lung predominant coarse reticular opacities consistent w ith UIP pattern chronic interstitial lung disease. Difficult to absolutely exclude superimposed mild pulmonary edema or pneumonia. 2. Cardiomegaly. Reviewed, dictated and finalized at location A. IMPRESSION: 1. Stable appearance of peripheral and lower lung predominant coarse reticular opacities consistent with UIP pattern chronic interstitial lung disease. Diffic ult to absolutely exclude superimposed mild pulmonary edema or pneumonia. 2. Cardiomegaly.
--- NOTE | ~2021-06-20 | CT_ITS ---
EXAMINATION: CT brain wo con DATE: 06/21/2021 14:35 INDICATION: Right-sided hemiparesis TECHNIQUE: Computed tomography (CT) of the head was performed without intravenous contrast. Sagittal and coronal reconstructions were performed. The mA was adjusted according to patient size. Iterative reconstruction technique was employed. The dose-length product was 605.33 mGy-cm. COMPARISON: head CT dated 02/02/2020 FINDINGS: No acute intracranial hemorrhage, acute infarction or abnormal extra axial fluid collection. There is mild scattered white matter hypoattenuation consistent with chronic small vessel ischemic disease. S ymmetric prominence of the sulci consistent with mild to moderate age-appropriate diffuse cerebral vo lume loss. Ventricles are normal and symmetric. No mass/mass effect. Changes of bilateral intraocula r lens replacement. The orbits and mastoid air cells are normal. Mild mucoperiosteal thickening in th e bilateral ethmoid sinuses. Intracranial calcified cerebral atherosclerosis is noted. IMPRESSION: 1. No acute intracranial process. 2. Age-related changes including mild to moderate diffuse volume loss and mild scattered white matter hypoattenuation consistent with chronic small vessel ischemic disease. Reviewed, dictated and finalized at location A. IMPRESSION: 1. No acute intracranial process. 2. Age-related changes including mild to moderate diffuse volume loss and mild scattered white matter hypoattenuation consistent with chronic small vessel isc hemic disease.
--- NOTE | 2021-06-20 16:34 | ECG_ITS ---
Measurements Intervals [place] Rate: 95 P: 43 NH: 144 QRS: -17 QRSD: 102 T: -3 QT: 347 QTc: 438 Interpretive Statements SINUS RHYTHM DELAYED PRECORDIAL R/S TRANSITION CONSIDER INFERIOR INFARCT, AGE INDETERMINATE BASELINE ARTIFACT- I, II, AVR, AVL, AVF ABNORMAL ECG Electronically Signed On 06-20-2021 17:17:42 CDT by Minesh Guan D.O.
--- NOTE | 2021-06-20 18:44 | PC.NURSE ---
daughter did not answer phone. voicemail left for ferny.
--- NOTE | 2021-06-20 19:00 | PC.NURSE ---
assumed care at this time. Report from Liz DURAN
--- NOTE | 2021-06-20 19:04 | ED.WEAKNESS ---
HPI - Weakness General Chief complaint: Weakness Stated complaint: WEAKNESS X3D Time Seen by Provider: 06/20/21 18:38 History of Present Illness HPI Narrative: Patient is an 80-year-old female who presents ER with weakness. Worsening over the last 3 days. Today she noticed that she is having urinary frequency and urgency. No fevers or chills or sweats. Reports she has a right-sided stent from her bladder to her kidney related to a kidney mass. She has seen Dr. Colunga for this. She also has known interstitial lung disease. Reports she has had an echocardiogram and carotid Dopplers through her rn unit manager to hopefully be cleared for surgery regarding her kidney. She reports a 70 pound weight loss over the last year. Patient reports she is short of breath when she ambulates. She is not short of breath at rest. Denies fevers or chills or sweats. No productive cough. Related Data Home Medications Medication Instructions Recorded Confirmed aspirin 81 mg tablet,delayed 81 mg PO HS 10/13/19 06/21/21 release blvdiffy-pso-sqwtu acid 0.4 1 tablet PO DAILY 10/13/19 06/21/21 mg-lycopene 300 mcg-lutein 250 mcg tablet famotidine 40 mg PO DAILY 04/12/20 06/21/21 docusate sodium 50 mg PO BID PRN 03/17/21 06/21/21 vitamin E 1 cap PO DAILY 03/17/21 06/21/21 levothyroxine [Synthroid] 50 mcg PO DAILY 06/21/21 06/21/21 Allergies Allergy/AdvReac Type Severity Reaction Status Date / Time SEBASTIEN Inhibitors Allergy Unknown unknown Verified 05/31/21 09:16 ciprofloxacin Allergy Unknown unknown Verified 05/31/21 09:16 lisinopril Allergy Unknown unknown Verified 05/31/21 09:16 Sulfa (Sulfonamide AdvReac Intermediate DIARRHEA Verified 05/31/21 09:16 Antibiotics) codeine AdvReac Mild NAUSEA/VOMI Verified 05/31/21 09:16 TING decongestants AdvReac Other Uncoded 05/31/21 09:16 Review of Systems Review of Systems: All systems reviewed & are unremarkable except as noted in HPI and below Constitutional: Constitutional: Denies chills, Reports fatigue, Denies fever(s) and Reports weakness ENT: Denies nasal congestion and Denies sore throat Cardiovascular: Cardiovascular: Denies chest pain, Denies rapid heart rate and Denies radiating jaw, neck or arm pain Respiratory: Respiratory: Denies cough, Reports dyspnea and Denies wheezing Gastrointestinal: Gastrointestinal: Denies abdominal pain, Denies nausea and Denies vomiting Genitourinary: Genitourinary: Reports nocturia, Denies dysuria and Denies urinary incontinence [facility] Past Medical History Medical History (Updated 06/21/21 @ 01:54 by Ar Joiner MD) Adult hypothyroidism Anemia Arthritis Chronic hyponatremia COPD (chronic obstructive pulmonary disease) Diverticulitis Essential (primary) hypertension Gastroesophageal reflux disease without esophagitis GERD (gastroesophageal reflux disease) Hypertension IBS (irritable bowel syndrome) ILD (interstitial lung disease) Iron deficiency anemia Mixed hyperlipidemia Primary osteoarthritis involving multiple joints Psoriasis Pulmonary arterial hypertension Right renal mass Initially noted on imaging November 2020 with more suspicious imaging 03/2020 Spinal stenosis, unspecified region other than cervical Thoracic aortic aneurysm Thoracic ascending aortic aneurysm 4.5 x 4.1 cm on hyperdense lesion CT November 2020 Surgical History Surgical History H/O: hysterectomy History of back surgery History of bladder surgery History of right hip replacement History of total hip replacement Hx of cholecystectomy Family History Family History Mother Cerebrovascular accident Father Acute myocardial infarction Sibling Heart disease Social History Social History (Updated 06/21/21 @ 01:52 by Heather Butcher DO) Social History: The patient quit smoking about 35 years ago. The patient retired from [employer]
[2021-06-20 19:37] LABS: Basophils Absolute Auto 0.1 K/mm3 (0.0-0.1); Basophils Percent Auto 0.6 % (0.2-1.2); Eosinophils Absolute Auto 0.3 K/mm3 (0-0.3); Eosinophils Percent Auto 2.3 % (0-4.4); Hematocrit 27.6 % (37.0-47.0); Hemoglobin 8.3 g/dL (12.0-15.0); Immature Granulocyte Absolute 0.07 K/mm3 (0.00-0.031); Immature Granulocyte Percent A 0.5 % (0-0.5); Lymphocytes Percent Auto 7.7 % (18.3-44.2); Mean Corpuscular HGB Conc 30.1 g/dl (32-36); Mean Corpuscular Hemoglobin 25.3 pg (26-34); Mean Corpuscular Volume 84.1 fl (80-100); Mean Platelet Volume 8.4 fl (7.4-10.4); Monocytes Absolute Auto 0.6 K/mm3 (0.1-0.6); Monocytes Percent Auto 4.6 % (2.6-8.5); Neutrophils Absolute Auto 10.9 K/mm3 (1.3-6.7); Neutrophils Percent Auto 84.3 % (45.5-73.1); Platelet Count Result 569 k/mm3 (150-375); Red Blood Count 3.28 M/mm3 (4.2-5.4); Red Cell Distribution Width 14.6 % (11.5-14.5); White Blood Count 12.9 K/mm3 (4.5-10.0)
[2021-06-20 19:55] LABS: Alanine Aminotransferase 21 U/L (4-35); Albumin Level 3.5 g/dL (3.5-5.1); Alkaline Phosphatase 93 U/L (38-126); Anion Gap 9 mmol/L (8-16); Aspartate Amino Transferase 27 U/L (14-36); Bilirubin,Total 0.1 mg/dL (0.2-1.3); Blood Urea Nitrogen 38 mg/dL (7-17); Calcium 10.9 mg/dL (8.4-10.2); Carbon Dioxide 23 mmol/L (22-30); Chloride 92 mmol/L (98-107); Estimated CRCL calculation 21 ml/min; Estimated Glomerular Filt Rate 33; Glucose 101 mg/dL (65-110); Potassium 4.7 mmol/L (3.4-5.0); Sodium 124 mmol/L (137-145)
[2021-06-20 20:31] LABS: Add Urine Microscopic? YES; Appearance Urine Clear (Clear); Bilirubin Urine Negative (Negative); Blood Urine 2+ (Negative); Color Urine Yellow (Yellow); Glucose Urine UA Negative (Negative); Ketones Urine Negative (Negative); Leukocyte Esterase Ur 1+ LEU/UL (Negative); Mucus Urine Rare /lpf; Nitrate Urine Negative (Negative); Protein Urine 1+ mg/dL (Negative); RBC Urine >75 /hpf (0-2); Specific Grav Ur 1.012 (1.001-1.035); Squamous Epithelial Cell Urine Rare /hpf (Few); Urobilinogen Urine Negative mg/dL (<2.0)
[2021-06-20] MEDS: SODIUM CHLORIDE 0.9% IV 1,000 ML 999 ML IV CONT (22:23)
[2021-06-21] VITALS: BP 137/63; PULSE 80; RESP 18; TEMP 36.3; O2SAT 100
--- NOTE | 2021-06-21 00:42 | ADMGEN ---
This patient, Aryan Nick, was admitted to [facility] Surg Room 321-02. Patient/family oriented to hospital policies and general routines including ID bracelet, bed and alarms, visiting hours, pain management, procedures, bathroom and other care routines, personal items, smoking policy, room service/diet, and visiting hours. Information on how to activate the Rapid Response Team has been discussed. Patient/Family are encouraged to report perceived risks to care and to ask questions if they do not understand what they are told or what they should do.
[2021-06-21] MEDS: SODIUM CHLORIDE 0.9% IV 1,000 ML 125 ML IV CONT ×2 (01:04→11:49)
--- NOTE | 2021-06-21 01:28 | PM.IMHP ---
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 Patient has CT scan in November 2020 to evaluate her interstitial lung disease and they found a 3.7 cystic lesion upper pole right kidney suggesting possible complex cyst versus cystic neoplasm. It also suggested mild progression of pleural parenchymal scarring right lung base otherwise stable appearance of lung nodules. 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 She had a urethral stent placed she had a follow-up CT 2 weeks later which demonstrated persistent severe right hydronephrosis with architectural distortion and parenchymal volume loss in the upper pole. It also demonstrated enhancing right pericaval lymph nodes superior medial to the proximal most right upper ureter which could represent either reactive or metastatic lymph nodes. Cardiomegaly and small pericardial effusion she. April 2021 she had renal perfusion scan which demonstrated severely decreased right kidney function estimated 10%. She has had chronic kidney disease since October 2020. Her creatinine has been fluctuating between 1.1 and 1.4. She has had chronic hyponatremia since before 2017. Her baseline sodium is usually between 128 and 133. Her sodium in the ER was 124. She usually responds to IV fluid hydration. She has had progressively poor appetite over recent weeks. She reports that her clothes are fitting much looser and she thinks she has lost weight. She has become profoundly weak over the last 3 days and cannot do much as far as activity. She thought she may have a UTI so she came into the ER. Her UA is not suggestive of a UTI. Review of Systems Review of Systems: 12 systems were reviewed with pertinent positives and negatives per HPI. Except as documented in the HPI, all other systems were reviewed and are negative. [facility] Past Medical History Medical History Adult hypothyroidism Anemia Arthritis Chronic hyponatremia COPD (chronic obstructive pulmonary disease) Diverticulitis Essential (primary) hypertension Gastroesophageal reflux disease without esophagitis GERD (gastroesophageal reflux disease) Hypertension IBS (irritable bowel syndrome) ILD (interstitial lung disease) Iron deficiency anemia Mixed hyperlipidemia Primary osteoarthritis involving multiple joints Psoriasis Pulmonary arterial hypertension Right renal mass Initially noted on imaging November 2020 with more suspicious imaging 03/2020 Spinal stenosis, unspecified region other than cervical Thoracic aortic aneurysm Thoracic ascending aortic aneurysm 4.5 x 4.1 cm on hyperdense lesion CT November 2020 Surgical History Surgical History H/O: hysterectomy History of back surgery History of bladder surgery History of right hip replacement History of total hip replacement Hx of cholecystectomy Family History Family History Mother Cerebrovascular accident Father Acute myocardial infarction Sibling Heart disease Social History Social History (Updated 06/21/21 @ 06:56 by Heather Butcher DO) Social History: She is and lives alone. the patient quit smoking about 35 years ago. 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 The patient has 2 children. Primary care physician: Dr. Victorino Bunn Code status: Full code Healthcare power of employment law attorney: Shayy Adames Smoking packs per day: 0.7 Smoking cigarettes per day: 14.
[2021-06-21 06:00] VITALS: BP 144/71; PULSE 79; RESP 18; TEMP 36.8; O2SAT 100
[2021-06-21] MEDS: LEVOTHYROXINE SODIUM 50 MCG TABLET PO (06:29)
[2021-06-21 07:06] LABS: Hematocrit 27.4 % (37.0-47.0); Hemoglobin 8.1 g/dL (12.0-15.0); Mean Corpuscular HGB Conc 29.6 g/dl (32-36); Mean Corpuscular Hemoglobin 25.4 pg (26-34); Mean Corpuscular Volume 85.9 fl (80-100); Mean Platelet Volume 8.5 fl (7.4-10.4); Platelet Count Result 531 k/mm3 (150-375); Red Blood Count 3.19 M/mm3 (4.2-5.4); Red Cell Distribution Width 14.6 % (11.5-14.5); White Blood Count 11.2 K/mm3 (4.5-10.0)
[2021-06-21 07:16] LABS: Anion Gap 5 mmol/L (8-16); Blood Urea Nitrogen 31 mg/dL (7-17); Carbon Dioxide 23 mmol/L (22-30); Chloride 97 mmol/L (98-107); Estimated CRCL calculation 27 ml/min; Estimated Glomerular Filt Rate 39; Glucose 83 mg/dL (65-110); Potassium 4.4 mmol/L (3.4-5.0); Sodium 125 mmol/L (137-145)
[2021-06-21] MEDS: CANDESARTAN CILEXETIL 16 MG TABLET PO (08:59)
[2021-06-21] MEDS: FAMOTIDINE 20 MG TABLET 40 MG PO (08:59)
--- NOTE | 2021-06-21 11:40 | WPDURCON ---
Assessment and Plan Assessment and plan (1) Right renal mass: Code(s): N28.89 - Other specified disorders of kidney and ureter Status: Acute Assessment and Plan: Unfortunately appears to have progression of the mass with possible vena cava involvement. Will have 1 of our partners review the films to see if she is a candidate for aggressive therapy with nephrectomy which may require involvement of vascular surgery if indeed the vena cava is truly involved. From my standpoint once she is medically stable she can be discharged and we will address this as an. Urology Consult Note HPI Date Seen: 06/21/21 Requesting Physician: Amalia Ward PA-C Primary Care Provider: Victorino Bunn DO Consult Narrative Reason for consult: Right renal mass Narrative: Aryan Nick is a 80 year old female who is known to me. She has a very unusual cystic mass of the right kidney. Aryan has most recently been undergoing cardiac evaluation for clearance for possible nephrectomy. She has had a 70-80 lb weight loss over the course of the past year. She was admitted with some weakness as well as some hyponatremia. CT scan in the emergency room revealed progression of this mass with a question of vena cava involvement. She denies any significant voiding symptoms or gross hematuria at this time. Review of Systems Review of Systems: All systems reviewed & are unremarkable except as noted in HPI and below PMFSH Past Medical History Medical History Adult hypothyroidism Anemia Arthritis Chronic hyponatremia COPD (chronic obstructive pulmonary disease) Diverticulitis Essential (primary) hypertension Gastroesophageal reflux disease without esophagitis GERD (gastroesophageal reflux disease) Hypertension IBS (irritable bowel syndrome) ILD (interstitial lung disease) Iron deficiency anemia Mass of right kidney Mixed hyperlipidemia Primary osteoarthritis involving multiple joints Psoriasis Pulmonary arterial hypertension Right renal mass Initially noted on imaging November 2020 with more suspicious imaging 03/2020 Spinal stenosis, unspecified region other than cervical Thoracic aortic aneurysm Thoracic ascending aortic aneurysm 4.5 x 4.1 cm on hyperdense lesion CT November 2020 Surgical History Surgical History H/O: hysterectomy History of back surgery History of bladder surgery History of right hip replacement History of total hip replacement Hx of cholecystectomy Family History Family History Mother Cerebrovascular accident Father Acute myocardial infarction Sibling Heart disease Social History Social History Social History: She is and lives alone. the patient quit smoking about 35 years ago. 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 Primary care physician: Dr. Victorino Bunn Code status: Full code Healthcare power of patent prosecution attorney: Shayy Adames Smoking packs per day: 0.7 Smoking cigarettes per day: 14.0 Years smoked: 25 Smoking pack-years: 17.50 Smoking status: Former smoker Tobacco type: cigarettes Smoking end date: 02/03/86 Alcohol intake: never Substance use: never Substance use type: does not use Gender identity (if verbalized by the patient): Female Spiritual care concerns: No Agree to blood products: Yes Meds Home Medications and Allergies Home Medications Medication Instructions Recorded Confirmed Type aspirin 81 mg tablet,delayed 81 mg PO HS 10/13/19 06/21/21 History release fzjmxzdx-rty-kfxof acid 0.4 1 tablet PO DAILY 10/13/19 06/21/21 History mg-lycopene 300 mcg-lutein 250 mcg tablet albuterol sulfate 90 mcg/actuation 2 i
[2021-06-21 14:00] VITALS: BP 133/55; PULSE 84; RESP 16; TEMP 36.3; O2SAT 100
--- NOTE | 2021-06-21 14:15 | PM.IMPN ---
Progress Note: A&P Assessment and Plan (1) Hyponatremia: Code(s): E87.1 - Hypo-osmolality and hyponatremia Status: Acute Assessment and Plan: Last sodium 125, slightly up from 124 -2 months ago it was 131 -could be decreased due to cancer -obtain urine sodium -medications reviewed, no diuretics or SSRIs noted -awaiting repeat sodium, we are having trouble obtaining blood. I have reached out to Myra DURAN for ultrasound-guided blood draw (2) Right renal mass: Code(s): N28.89 - Other specified disorders of kidney and ureter Status: Acute Assessment and Plan: Right renal mass now extending towards the inferior vena cava and likely invading. -The patient reports that she was waiting for permission from her forest fire lookout to have surgery. She states that her forest fire lookout sent her risk stratification to the urologist office and she was waiting to hear from the urologist on whether not she could have surgery. -Urology has been consulted and they are going to get in touch with their colleagues in a [place] to see if she would qualify for an extensive surgery (3) Generalized weakness: Code(s): R53.1 - Weakness Status: Acute Assessment and Plan: Likely due enlarging urothelial cancer and cancer -continue PT and OT (4) Right sided weakness: Code(s): R53.1 - Weakness Status: Acute Assessment and Plan: Patient is complaining of right-sided weakness and numbness/tingling for the last 3-5 days -no neurological deficits on exam -will obtain brain CT stat to assess for stroke and/or tumor mets from her possible RCC -Pt refuses brain MRI due to claustrophobia and said medication does not help. She understands that a brain MRI is more sensitive and more specific but states she cannot get a brain MRI. Time Spent With Patient Time with patient: 25 - 35 minutes Subjective Date/time seen: 06/21/21 14:15 Interval history: Pt is an 80 y/o female here for weakness. Patient was seen today with daughter at bedside. The patient's main complaint is that her right arm and leg feel weak and numb. She said this started a couple days ago. She said that her left leg is so weak that she can barely walk. She is also eating with her left hand due to the weakness and numbness to her right arm. She has no other stroke symptoms such as problems with speech, word finding, or problems with her left side. She adamantly refuses an MRI says she is claustrophobic and medication will not help her. She understands that her symptoms are consistent with a stroke or progression of tumor to her brain and that an MRI is needed to assess this. I spoke to her about obtaining a CT, which is less sensitive and specific. She has agreed to do that. Pt denies nausea, vomiting, fevers, chills, constipation, diarrhea, chest pain, sob, or abdominal pain. She says that she always has crackles in her lower lungs due to her interstitial lung disease. Review of Systems Review of Systems: All systems reviewed & are unremarkable except as noted in HPI and below Exam Narrative: General: Well developed well nourished patient in NAD HEENT: normocephalic Neck: supple Neuro: Alert and oriented x4. Cranial nerves 2-12 intact. Equal strength the upper lower extremities 5/5. Able to do rapid alternating movements and huoitz-bt-gyqq as well as knee to souza. No exam deficits comparable to her complaints CV:RRR Resp: Very coarse crackles at the bases (she states this is chronic). No wheezing Abd: Soft, non distended. No pain to palpation. Positive bowel sounds Extremities: No swelling, erythema, or pain to palpation. Objective Data Vital Signs Vital Signs: Vital Signs - 24 hr 06/20/21 16:32 06/20/21 18:38 06/20/21 18:39 Temperature 97.3 F L Pulse Rate 95 102 H Respiratory Rate 20 Blood Pressure 101/55 L Pulse Oximetry 100 90 06/20/21 18:41 06/20/21 18:46 06/20/21 18:47 T
[2021-06-21 15:08] LABS: Sodium 126 mmol/L (137-145)
[2021-06-21] MEDS: ASPIRIN 81 MG ENTERIC TABLET PO (21:44)
[2021-06-21 22:00] VITALS: BP 118/75; PULSE 87; RESP 18; TEMP 37.1; O2SAT 98
[2021-06-22] MEDS: SODIUM CHLORIDE 0.9% IV 1,000 ML 125 ML IV CONT ×2 (01:01→09:27)
[2021-06-22 06:00] VITALS: BP 125/65; PULSE 81; RESP 18; TEMP 36.8; O2SAT 100
[2021-06-22 06:33] LABS: Hematocrit 26.2 % (37.0-47.0); Mean Corpuscular HGB Conc 30.5 g/dl (32-36); Mean Corpuscular Hemoglobin 25.6 pg (26-34); Mean Corpuscular Volume 83.7 fl (80-100); Mean Platelet Volume 8.2 fl (7.4-10.4); Platelet Count Result 487 k/mm3 (150-375); Red Blood Count 3.13 M/mm3 (4.2-5.4); Red Cell Distribution Width 14.6 % (11.5-14.5); White Blood Count 10.1 K/mm3 (4.5-10.0)
[2021-06-22] MEDS: LEVOTHYROXINE SODIUM 50 MCG TABLET PO (06:34)
[2021-06-22 06:43] LABS: Anion Gap 3 mmol/L (8-16); Blood Urea Nitrogen 24 mg/dL (7-17); Calcium 9.9 mg/dL (8.4-10.2); Carbon Dioxide 23 mmol/L (22-30); Chloride 103 mmol/L (98-107); Estimated CRCL calculation 27 ml/min; Estimated Glomerular Filt Rate 39; Glucose 81 mg/dL (65-110); Potassium 4.6 mmol/L (3.4-5.0); Sodium 129 mmol/L (137-145)
[2021-06-22] MEDS: FAMOTIDINE 20 MG TABLET 40 MG PO (08:53)
[2021-06-22] MEDS: CANDESARTAN CILEXETIL 16 MG TABLET PO (08:53)
[2021-06-22] MEDS: MULTIVITAMINS /C LUTEIN (CENTRUM SILVER) TABLET *BKC 1 TAB PO (08:53)
[2021-06-22 14:00] VITALS: BP 142/60; PULSE 77; RESP 14; TEMP 36.4; O2SAT 99
[2021-06-22 15:53] LABS: Sodium 128 mmol/L (137-145)
--- NOTE | 2021-06-22 17:06 | PM.IMPN ---
Progress Note: A&P Assessment and Plan (1) Hyponatremia: Code(s): E87.1 - Hypo-osmolality and hyponatremia Status: Acute Assessment and Plan: Last sodium 129, slightly up from 124. She is about at baseline -2 months ago it was 131 -pt refuses sodium tabs -could be decreased due to cancer -obtain urine sodium -medications reviewed, no diuretics or SSRIs noted (2) Right renal mass: Code(s): N28.89 - Other specified disorders of kidney and ureter Status: Acute Assessment and Plan: Right renal mass now extending towards the inferior vena cava and likely invading. -The patient reports that she was waiting for permission from her hub bander to have surgery. She states that her hub bander sent her risk stratification to the urologist office and she was waiting to hear from the urologist on whether not she could have surgery. -Urology has been consulted and they are going to get in touch with their colleagues in [place] to see if she would qualify for an extensive surgery (3) Generalized weakness: Code(s): R53.1 - Weakness Status: Acute Assessment and Plan: Likely due enlarging urothelial cancer and cancer -continue PT and OT (4) Right sided weakness: Code(s): R53.1 - Weakness Status: Acute Assessment and Plan: Patient is complaining of right-sided weakness and numbness/tingling for the last 3-5 days -slight hand car wrecker decreased strength -CT brain initially negative -repeat CT of brain tomorrow to ensure no occult stroke ([address] -Pt refuses brain MRI due to claustrophobia and said medication does not help. She understands that a brain MRI is more sensitive and more specific but states she cannot get a brain MRI. Subjective Date/time seen: 06/22/21 17:06 Interval history: Pt is an 80 y/o female here for weakness. She says she feels blah today. She said her right arm weakness has improved but not resolved. She said she has a hx of hyponatremia and has been told she needs sodium tabs but she refuses to take them as they hurt her stomach. She lives at home and plans to return there after d/c. She still feels weak but getting better. She denies CP, SOB, fevers, chills, nausea, diarrhea or constipation. Exam Narrative: General: Well developed well nourished patient in NAD HEENT: normocephalic Neck: supple Neuro: Alert and oriented x4. Cranial nerves 2-12 intact. Equal strength the lower extremities 5/5. Slight weakness to the right hand. Able to do rapid alternating movements and ajkoch-qa-cqcy as well as knee to souza. CV:RRR Resp: Very coarse crackles bilaterally (she states this is chronic). No wheezing Abd: Soft, non distended. No pain to palpation. Positive bowel sounds Extremities: No swelling, erythema, or pain to palpation. Objective Data Vital Signs Vital Signs: Vital Signs - 24 hr 06/21/21 22:00 06/22/21 06:00 06/22/21 14:00 Temperature 98.7 F 98.2 F 97.5 F L Pulse Rate 87 81 77 Respiratory Rate 18 18 14 Blood Pressure 118/75 125/65 142/60 H Pulse Oximetry 98 100 99 Intake/Output Intake/Output: Intake & Output 06/19/21 06/20/21 06/21/21 06/22/21 23:59 23:59 23:59 23:59 Intake Total 1000 2900 3180 Output Total 300 Balance 1000 2600 3180 Meds/Results Medications: Active Medications Generic Name Dose Route Start Last Admin Trade Name Freq PRN Reason Stop Dose Admin Acetaminophen 650 mg 06/20/21 22:19 Acetaminophen 325 Mg Tablet PO Q4H PRN Mild Pain (1-3) or Fever Albuterol 2 puff 06/21/21 01:32 Albuterol Sulfate (*Sp) Aerosol 1 Puff INHALATION Q4H PRN shortness of breath or wheezing Aspirin 81 mg 06/21/21 21:00 06/21/21 21:44 Aspirin 81 Mg Enteric Tablet PO 81 mg HS LUZ MARINA Administration Benzonatate 100 mg 06/21/21 01:35 Benzonatate 100 Mg Capsule PO TID PRN Cough Candesartan Cilexetil 16 mg 06/21/21 09:00
[2021-06-22 18:16] LABS: Creatinine Urine 41.9 mg/dL
[2021-06-22 18:20] LABS: Sodium Urine Random 129 meq/L
[2021-06-22] MEDS: ASPIRIN 81 MG ENTERIC TABLET PO (20:02)
[2021-06-22 22:00] VITALS: BP 131/58; PULSE 85; RESP 18; TEMP 37.2; O2SAT 97
[2021-06-23 06:00] VITALS: BP 132/65; PULSE 84; RESP 18; TEMP 36.7; O2SAT 98
[2021-06-23] MEDS: LEVOTHYROXINE SODIUM 50 MCG TABLET PO (06:00)
[2021-06-23 07:26] LABS: Anion Gap 4 mmol/L (8-16); Blood Urea Nitrogen 20 mg/dL (7-17); Calcium 9.6 mg/dL (8.4-10.2); Carbon Dioxide 23 mmol/L (22-30); Chloride 98 mmol/L (98-107); Estimated CRCL calculation 27 ml/min; Estimated Glomerular Filt Rate 39; Glucose 86 mg/dL (65-110); Potassium 4.1 mmol/L (3.4-5.0); Sodium 125 mmol/L (137-145)
[2021-06-23] MEDS: CANDESARTAN CILEXETIL 16 MG TABLET PO (08:45)
[2021-06-23] MEDS: MULTIVITAMINS /C LUTEIN (CENTRUM SILVER) TABLET *BKC 1 TAB PO (08:46)
[2021-06-23] MEDS: FAMOTIDINE 20 MG TABLET 40 MG PO (08:46)
[2021-06-23 09:30] LABS: Carcinoembryonic Antigen 2.7 ng/mL (0.0-3.0)
[2021-06-23 14:00] VITALS: BP 126/54; PULSE 92; RESP 16; TEMP 36.6; O2SAT 96
--- NOTE | 2021-06-23 15:24 | PM.IMPN ---
Progress Note: A&P Assessment and Plan (1) Hyponatremia: Code(s): E87.1 - Hypo-osmolality and hyponatremia Status: Acute Assessment and Plan: Last sodium 125 -2 months ago it was 131 -patient has had issues with sodium tablets in the past is going to try them again to see if it helps -hyponatremia acute on chronic. She chronically has low sodium but with this new cancer diagnosis, this will likely be her new baseline -urine sodium 129 -medications reviewed, no diuretics or SSRIs noted (2) Right renal mass: Code(s): N28.89 - Other specified disorders of kidney and ureter Status: Acute Assessment and Plan: Right renal mass now extending towards the inferior vena cava and likely invading. -The patient reports that she was waiting for permission from her film and video graphics designer to have surgery. She states that her film and video graphics designer sent her risk stratification to the urologist office and she was waiting to hear from the urologist on whether not she could have surgery. -Urology has been consulted and they are going to get in touch with their colleagues in [place] to see if she would qualify for an extensive surgery -patient is deciding if she wants to go SNF for hospice (3) Generalized weakness: Code(s): R53.1 - Weakness Status: Acute Assessment and Plan: Likely due enlarging urothelial cancer and hyponatremia -continue PT and OT (4) Right sided weakness: Code(s): R53.1 - Weakness Status: Acute Assessment and Plan: Patient is complaining of right-sided weakness and numbness/tingling for the last 3-5 days -slight hand application development liaison decreased strength -CT brain initially negative. She declines the additional head CT today -Pt refuses brain MRI due to claustrophobia and said medication does not help. She understands that a brain MRI is more sensitive and more specific but states she cannot get a brain MRI. Additional Plan Abdominal pelvis CT shows soft tissue prominence in the rectal area cannot exclude rectal carcinoma. Patient states she has had colonoscopies in the past without any issue. CEA is negative. Due to above, the patient does not want any further workup including a colonoscopy or barium enema. She would not like to go forward with additional testing. No issues with BMs Subjective Date/time seen: 06/23/21 15:24 Interval history: Pt is an 80 y/o female here for weakness. She says she feels weak today and has not felt much better since being here. She did say her right-sided weakness has improved. She really does not want another CT of the brain. She understands that we are looking for possible stroke but says she is tired of workup and she declines this at this time. Had a long talk with her about her sodium and her cancer. She says that sodium tabs used to make her throw up but she would try it 1 more time to see how she does. She wants to talk to Urology to see what their thoughts are. She understands that she has an aggressive cancer that is non curable. She is trying to decide if she wants to go forward with SNF or hospice. She said she is usually a very active person and this diagnosis has really affected her. I also spoke with her about her colon abnormalities on the CT. She says she has no history of issues with her bowel movements. She has had colonoscopies in the past with not a single polyp. She said even if it was cancer or something abnormal she would not want any treatment or any workup. She definitely does not want a colonoscopy or barium enema. She is going to let us know she starts having pain or problems with bowel movements. Exam Narrative: General: Well developed well nourished patient in NAD HEENT: normocephalic Neck: supple Neuro: Alert and oriented x4. Cranial nerves 2-12 intact. Equal strength the lower extremities 5/5. Slight weakness to the right hand. Able to do rapid alternating movements and undbwi-gk-fcci as w
[2021-06-23] MEDS: SODIUM CHLORIDE 1 GM TABLET PO (16:53)
[2021-06-23] MEDS: ASPIRIN 81 MG ENTERIC TABLET PO (20:21)
[2021-06-23 22:00] VITALS: BP 102/50; PULSE 91; RESP 18; TEMP 36.4; O2SAT 97
[2021-06-24 06:00] VITALS: BP 116/59; PULSE 74; RESP 18; TEMP 37.2; O2SAT 95
[2021-06-24] MEDS: LEVOTHYROXINE SODIUM 50 MCG TABLET PO (06:08)
[2021-06-24] MEDS: FAMOTIDINE 20 MG TABLET 40 MG PO (06:09)
[2021-06-24 07:42] LABS: Anion Gap 3 mmol/L (8-16); Blood Urea Nitrogen 21 mg/dL (7-17); Calcium 9.8 mg/dL (8.4-10.2); Carbon Dioxide 25 mmol/L (22-30); Chloride 99 mmol/L (98-107); Estimated CRCL calculation 27 ml/min; Estimated Glomerular Filt Rate 39; Glucose 102 mg/dL (65-110); Potassium 4.3 mmol/L (3.4-5.0); Sodium 127 mmol/L (137-145)
[2021-06-24 08:00] VITALS: RESP 16; O2SAT 96
[2021-06-24] MEDS: CANDESARTAN CILEXETIL 16 MG TABLET PO (08:27)
[2021-06-24] MEDS: SODIUM CHLORIDE 1 GM TABLET PO ×2 (08:27→17:46)
[2021-06-24] MEDS: MULTIVITAMINS /C LUTEIN (CENTRUM SILVER) TABLET *BKC 1 TAB PO (08:27)
--- NOTE | 2021-06-24 11:19 | PCNFU ---
Nutrition Follow-Up Complete: Unintended weight loss as related to renal mass as evidenced by weight loss of 70 ibs in the past 9 months. Goal: Meet estimated nutritional needs Patient is progressing towards goal. We will continue current goal. Pt current nutrition is Regular with 1200 ml FR. Last recorded weight is 56.3 kg, no new weight to report. Bowel Motility:+BM reported 06/23 Labs Reviewed:Cr 1.3,BUN 21,GFR 39,Na 127 Meds Noted:Centrum, Synthroid,Aspirin, Atacand. Additional Notes: Patient seen today for nutrition follow. She stats to eating good, oral intake 25-100% of meals. She is receiving Ensure compact lunch and dinner and drinking them. Sodium is trending up. Agree with diet orders. Monitoring: Will monitor every 5 days.
--- NOTE | 2021-06-24 13:49 | PM.DS ---
DS: Admitting Diagnosis Admitting Diagnosis weakness, hyponatremia DS: Discharge Diagnosis Discharge Diagnosis (1) Hyponatremia: Code(s): E87.1 - Hypo-osmolality and hyponatremia Status: Acute Assessment and Plan: Last sodium 12, up from 124 on admission -Pt ranges from 125-131 -patient has had issues with sodium tablets in the past but was able to tolerate them at the end of her stay. -hyponatremia acute on chronic. She chronically has low sodium but with this new cancer diagnosis, this will likely be her new baseline -urine sodium 129 -medications reviewed, no diuretics or SSRIs noted -Pt d/serafin to SNF and I have asked them to recheck a BMP and adjust sodium tabs as needed (2) Right renal mass: Code(s): N28.89 - Other specified disorders of kidney and ureter Status: Acute Assessment and Plan: Right renal mass now extending towards the inferior vena cava and likely invading. -Sx and Bx is risky, pt does not want to go forward with it since there is likely no cure -She is to follow up with Dr. Colunga -Informed about hospice, pt is going to think about it but wants to go to SNF first to see if she can get stronger (3) Generalized weakness: Code(s): R53.1 - Weakness Status: Acute Assessment and Plan: Likely due enlarging urothelial cancer and hyponatremia -pt d/serafin to SNF (4) Right sided weakness: Code(s): R53.1 - Weakness Status: Acute Assessment and Plan: Patient is complaining of right-sided weakness and numbness/tingling for the last 3-5 days -resolved -CT brain initially negative. She declines the additional head CT. -Pt refuses brain MRI due to claustrophobia and said medication does not help. She understands that a brain MRI is more sensitive and more specific but states she cannot get a brain MRI. -d/c to SNF DS: Summary Hospital Course Hospital Course: DOS 06/24/21 Patient is an 80-year-old female who presented emergency room for weakness, urinary frequency and urgency as well as shortness of breath on occasion. She also mentions that she has had a 70 lb weight loss. Vitals in the ER were white blood cell count 12.9, hemoglobin 8.3, hematocrit 27.6, platelets 569. BMP showed a hyponatremia 124 with a creatinine 1.5. UA slightly suspicious for UTI but urine culture was negative. Chest x-ray showed stable appearance of her interstitial lung disease with cardiomegaly. Abdominal CT showed suspected aggressive malignant complex right renal mass likely invading the inferior vena cava. It also showed soft tissue predominant in the rectal area which could not exclude rectal carcinoma. Patient was admitted to the hospitalist service and her sodium got slightly better at 127 but stayed pretty persistent. Her urine sodium was high and was thought to be due to cancer. She has chronic hyponatremia in the past and this is likely worsening due to her advancing cancer. At 1st she was resistant to doing salt tabs but ended up trying them the last few days and her sodium did improve to 127. She saw Urology while here and after a long discussion with Dr. Colunga and myself, the patient declined any further intervention or surgery. We are unable to get a biopsy here due to the location and the patient did not want to go to a tertiary care center at this time for a biopsy. She had no swelling in her lower extremities to indicate insufficient blood return due to the inferior vena cava involvement. On her CT it mentioned a soft tissue abnormality in the rectal area. I discussed this with the patient and she declined further workup. Her CEA was negative and her last colonoscopy was normal. I talked to her about hospice and she was not quite ready for that. She wanted to go to SNF at least for a little bit to see if she could get stronger. Her weakness did not really improve throughout her stay. She had some slight right-sided weakness but head CT w
[2021-06-24 15:03] VITALS: BP 103/53; PULSE 79; RESP 14; TEMP 36.7; O2SAT 99
== END 2021-06-24 19:45 | DRG 641 ==
LOC: ANHED 19:28 → ANH3MEDSUR 23:34
PROVIDERS: Internal Medicine; Physician Assistant; Admitting Provider Internal Medicine; Emergency Provider Emergency Medicine; PCP Internal Medicine; Visit Provider Family Medicine
DX: E87.1 Hypo-osmolality and hyponatremia (principal); C64.1 Malignant neoplasm of right kidney, except renal pelvis; E86.0 Dehydration; E78.5 Hyperlipidemia, unspecified; K21.9 Gastro-esophageal reflux disease without esophagitis; J44.9 Chronic obstructive pulmonary disease, unspecified
CPT/HCPCS: 36415; 70450; 71046; 74177; 80048; 80053; 81001; 82378; 82570; 84295; 84300; 84443; 85025; 85027; 87086; 93005; 96360; 96361; 97110; 97161; 97165; 97530; 97535; 99285; A9270; G0378; J7030; Q9967

== ENCOUNTER 2021-06-29 22:59 | Inpatient (IN) | payer MEDICARE, BC, SELFPAY ==
--- NOTE | ~2021-06-29 | CT_ITS ---
EXAMINATION: CT abdomen pelvis w con EXAM DATE: 06/30/2021 01:09 INDICATION: Abdominal pain, known malignancy. Kidney cancer. TECHNIQUE: Spiral CT of the abdomen and pelvis was performed following intravenous injection of 100 m L Omnipaque 350. Axial, coronal and sagittal images of the abdomen and pelvis were reviewed. The do se-length product (DLP) for this examination was 267.85 mGy-cm. The exposure was tailored according to patient size (auto mA exposure control), and iterative reconstruction (ASIR) was used as additiona l dose reduction technique. Comparison is made to prior examination from 06/20/2021. FINDINGS: The liver, spleen, adrenal glands and pancreas are unremarkable. There are cholecystectomy clips. Right renal pelvic complex cystic mass and suspect tumor thrombus in the renal vein extendin g to the IVC. Metastatic retroperitoneal lymphadenopathy, with a node measuring 1.1 x 1.6 cm. Right- sided hydronephrosis with a ureteral stent in position. The uterus is not identified and has likely been surgically resected. The bladder is unremarkable. There is mild to moderate scattered arterios clerotic disease. There are no findings to suggest appendicitis. There is small sliding gastroesophageal hiatal hernia . Fecal impaction with rectal vault measuring 8 cm, moderate amount of colonic stool proximal to thi s. There has been development of inflammation in the presacral space and surrounding the rectum, coul d be stercoral colitis. There is extensive descending and sigmoid predominant colonic diverticulosis. There is no adjacent inflammatory change to suggest diverticulitis. No free intraperitoneal gas. There is cardiomegaly. There are no pleural or pericardial effusions. Ascending aorta measures 4.5 c m, mildly dilated. There is basilar pulmonary fibrosis and bronchiectasis. There are no osteoblasti c or osteolytic lesions identified. Advanced lumbar spondylosis. IMPRESSION: 1. Right renal hilar malignancy, could be transitional cell or renal cell cancer, with renal vein an d IVC invasion, tumor thrombus. 2. Metastatic retroperitoneal lymphadenopathy. 3. Fecal impaction. Possible stercoral colitis. 4. Colonic diverticulosis. 5. Pulmonary fibrosis. 6. Small hiatal hernia. 7. Mildly dilated ascending aorta. Reviewed, dictated and finalized at location A. IMPRESSION: 1. Right renal hilar malignancy, could be transitional cell or renal cell canc er, with renal vein and IVC invasion, tumor thrombus. 2. Metastatic retroperitoneal lymphadenopathy. 3. Fecal impaction. Possible stercoral colitis. 4. Colonic diverticulosis. 5. Pulmonary fibrosis. 6. Small hiatal hernia. 7. Mildly dilated ascending aorta.
[2021-06-29 22:58] VITALS: BP 113/63; PULSE 99; RESP 17; TEMP 36.6; O2SAT 99
--- NOTE | 2021-06-29 23:18 | ECG_ITS ---
Measurements Intervals Reading Rate: 98 P: 41 WV: 172 QRS: -5 QRSD: 93 T: 14 QT: 361 QTc: 463 Interpretive Statements SINUS RHYTHM CONSIDER INFERIOR INFARCT, AGE INDETERMINATE BORDERLINE T WAVE ABNORMALITY- ANTEROLATERAL LEADS BASELINE ARTIFACT- I, II, III, AVR, AVL, AVF, V2-V6 ABNORMAL ECG Electronically Signed On 06-30-2021 5:52:16 CDT by Minesh Guan D.O.
--- NOTE | 2021-06-29 23:27 | ED.RECABL ---
HPI - Recheck/Abnormal Lab/Rx General Chief Complaint: Recheck/Abnormal Lab/Rx Stated Complaint: abnormal labs Time Seen by Provider: 06/29/21 23:00 History of Present Illness HPI narrative: Patient referred for evaluation of anemia. Patient had routine blood draw and she is noted to be anemic. She reports a history of anemia that has required blood transfusions in the past. There is a history of renal cancer and has been having generalized fatigue ever since her diagnosis. She denies any blood in her urine or her stool she denies any increase in pain in her abdomen she denies any shortness of breath lightheadedness or fevers Related Data Home Medications Medication Instructions Recorded Confirmed aspirin 81 mg tablet,delayed 81 mg PO HS 10/13/19 06/21/21 release gbqiwyrl-bxs-ufoaq acid 0.4 1 tablet PO DAILY 10/13/19 06/21/21 mg-lycopene 300 mcg-lutein 250 mcg tablet famotidine 40 mg PO DAILY 04/12/20 06/21/21 docusate sodium 50 mg PO BID PRN 03/17/21 06/21/21 vitamin E 1 cap PO DAILY 03/17/21 06/21/21 levothyroxine [Synthroid] 50 mcg PO DAILY 06/21/21 06/21/21 Allergies Allergy/AdvReac Type Severity Reaction Status Date / Time SEBASTIEN Inhibitors Allergy Unknown unknown Verified 06/29/21 23:09 ciprofloxacin Allergy Unknown unknown Verified 06/29/21 23:09 lisinopril Allergy Unknown unknown Verified 06/29/21 23:09 Sulfa (Sulfonamide AdvReac Intermediate DIARRHEA Verified 06/29/21 23:09 Antibiotics) codeine AdvReac Mild NAUSEA/VOMI Verified 06/29/21 23:09 TING decongestants AdvReac Other Uncoded 06/29/21 23:09 Review of Systems Review of Systems: CONSTITUTIONAL: Denies fever, chills, or sweats. EYES: Denies visual changes, redness, or discharge. ENT: Denies rhinorrhea, congestion, sore throat, or otalgia. CARDIOVASCULAR: Denies chest pain, palpitations, or edema. RESPIRATORY: Denies cough or dyspnea. GASTROINTESTINAL: Denies abdominal pain, nausea, vomiting, or diarrhea. GENITOURINARY: Denies dysuria or hematuria. SKIN: Denies rash or itching. MUSCULOSKELETAL: Denies back pain, joint pain, or myalgia. NEUROLOGIC: Denies headache, numbness, dizziness, or focal weakness. PSYCHIATRIC: Denies anxiety or depression. [facility] Past Medical History Medical History Adult hypothyroidism Anemia Arthritis Chronic hyponatremia COPD (chronic obstructive pulmonary disease) Diverticulitis Essential (primary) hypertension Gastroesophageal reflux disease without esophagitis GERD (gastroesophageal reflux disease) Hypertension IBS (irritable bowel syndrome) ILD (interstitial lung disease) Iron deficiency anemia Mass of right kidney Mixed hyperlipidemia Primary osteoarthritis involving multiple joints Psoriasis Pulmonary arterial hypertension Right renal mass Initially noted on imaging November 2020 with more suspicious imaging 03/2020 Spinal stenosis, unspecified region other than cervical Thoracic aortic aneurysm Thoracic ascending aortic aneurysm 4.5 x 4.1 cm on hyperdense lesion CT November 2020 Surgical History Surgical History H/O: hysterectomy History of back surgery History of bladder surgery History of right hip replacement History of total hip replacement Hx of cholecystectomy Family History Family History Mother Cerebrovascular accident Father Acute myocardial infarction Sibling Heart disease Social History Social History Social History: She is and lives alone. the patient quit smoking about 35 years ago. 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 The patient has 2 children. Primary care physician: Dr. Victorino Bunn Code status: Full code [facility] power of research instructor: Shayy Adames Smoking packs per day: 0.7
--- NOTE | 2021-06-29 23:59 | PC.NURSE ---
unsuccessful at IV attempt. asked another RN to try and was unsuccessful as well. will have another rn attempt.
[2021-06-30] VITALS (11 sets, daily range): BP systolic 100–135; BP diastolic 53–72; PULSE 74–93; RESP 12–25; TEMP 36.4–37.1; O2SAT 93–100; BMI 19.5
[2021-06-30 00:07] LABS: Basophils Absolute Auto 0.1 K/mm3 (0.0-0.1); Basophils Percent Auto 0.5 % (0.2-1.2); Eosinophils Absolute Auto 0.4 K/mm3 (0-0.3); Eosinophils Percent Auto 3.1 % (0-4.4); Hematocrit 25.9 % (37.0-47.0); Immature Granulocyte Absolute 0.06 K/mm3 (0.00-0.031); Immature Granulocyte Percent A 0.5 % (0-0.5); Lymphocytes Absolute Auto 1.44 K/mm3 (0.9-3.2); Lymphocytes Percent Auto 12.3 % (18.3-44.2); Mean Corpuscular HGB Conc 30.9 g/dl (32-36); Mean Corpuscular Hemoglobin 25.3 pg (26-34); Mean Platelet Volume 8.3 fl (7.4-10.4); Monocytes Absolute Auto 0.6 K/mm3 (0.1-0.6); Monocytes Percent Auto 5.2 % (2.6-8.5); Neutrophils Absolute Auto 9.2 K/mm3 (1.3-6.7); Neutrophils Percent Auto 78.4 % (45.5-73.1); Platelet Count Result 591 k/mm3 (150-375); Red Blood Count 3.16 M/mm3 (4.2-5.4); Red Cell Distribution Width 14.4 % (11.5-14.5); White Blood Count 11.8 K/mm3 (4.5-10.0)
[2021-06-30 00:24] LABS: Alanine Aminotransferase 19 U/L (4-35); Albumin Level 3.2 g/dL (3.5-5.1); Alkaline Phosphatase 104 U/L (38-126); Anion Gap 5 mmol/L (8-16); Aspartate Amino Transferase 25 U/L (14-36); Bilirubin,Total 0.3 mg/dL (0.2-1.3); Blood Urea Nitrogen 37 mg/dL (7-17); Calcium 10.3 mg/dL (8.4-10.2); Carbon Dioxide 25 mmol/L (22-30); Chloride 97 mmol/L (98-107); Estimated CRCL calculation 24 ml/min; Estimated Glomerular Filt Rate 36; Glucose 106 mg/dL (65-110); Lipase 195 U/L (23-300); Potassium 4.8 mmol/L (3.4-5.0); Sodium 127 mmol/L (137-145)
[2021-06-30 00:36] LABS: Troponin I 0.336 ng/mL (0.000-0.034)
[2021-06-30] MEDS: SODIUM CHLORIDE 0.9% IV 500 ML 999 ML IV CONT (00:55)
[2021-06-30 01:50] LABS: Appearance Urine Clear (Clear); Bilirubin Urine Negative (Negative); Blood Urine 2+ (Negative); Color Urine Yellow (Yellow); Glucose Urine UA Negative (Negative); Ketones Urine Negative (Negative); Leukocyte Esterase Ur 3+ LEU/UL (Negative); Nitrate Urine Negative (Negative); Protein Urine 2+ mg/dL (Negative); Specific Grav Ur 1.015 (1.001-1.035); Urobilinogen Urine 0.2 mg/dL (<2.0); pH Urine 8.5 (5.0-9.0)
[2021-06-30 01:52] LABS: Bacteria Urine 4+ /hpf; RBC Urine >75 /hpf (0-2); Squamous Epithelial Cell Urine Few /hpf (Few)
[2021-06-30 01:53] LABS: Mucus Urine Rare /lpf; WBC Urine 21-30 /hpf
[2021-06-30 02:05] LABS: Add Urine Microscopic? YES
--- NOTE | 2021-06-30 03:57 | ADMGEN ---
This patient, Aryan Nick, was admitted to IMU Room 213-01 on 06/30/21 at 0340. Patient/family oriented to hospital policies and general routines including ID bracelet, bed and alarms, visiting hours, pain management, procedures, bathroom and other care routines, personal items, smoking policy, room service/diet, and visiting hours. Information on how to activate the Rapid Response Team has been discussed. Patient/Family are encouraged to report perceived risks to care and to ask questions if they do not understand what they are told or what they should do.
[2021-06-30 04:12] LABS: Troponin I 0.382 ng/mL (0.000-0.034)
[2021-06-30 07:03] LABS: Troponin I 0.407 ng/mL (0.000-0.034)
[2021-06-30] MEDS: SODIUM CHLORIDE 0.9% IV 1,000 ML 125 ML IV CONT ×2 (10:47→18:46)
[2021-06-30 12:19] LABS: Immature Reticulocyte Fraction 13.1 % (3.0-15.9); Reticulocyte Hemoglobin Conten 25.4 pg (28.2-35.7); Reticulocyte Percent 1.02 % (0.7-4.3); Reticulocytes Absolute 0.03 B/L (32.2-175.7)
[2021-06-30 12:28] LABS: Lactate Dehydrogenase 216 U/L (313-618)
[2021-06-30 12:33] LABS: Prothrombin Time 13.4 Seconds (11.1-14.7)
[2021-06-30 12:54] LABS: Iron 12 ug/dL (37-170)
[2021-06-30 13:04] LABS: Percent Iron Saturation 6 % (20-50)
[2021-06-30 13:46] LABS: Folic Acid > 20.0 ng/mL (2.76->20)
--- NOTE | 2021-06-30 13:49 | PM.IMHP ---
H&P: HPI History of Present Illness Date/Time: 06/30/21 13:49 Chief Complaint: Lower abdominal pain Narrative: Patient is an 80-year-old lady with history of renal cell carcinoma status post stent placement presenting with lower abdominal pain for a few days. Pain feels like burning, nonradiating. Patient is not ambulatory, however says that it is not an exertional pain, that is moving around and getting stressed does not induce it. No associated shortness of breath, fever, chills, diaphoresis. Never had this pain before. Of note, patient has known renal cancer, unaware of the stage, and had a stenting procedure earlier this year. Also of note she suffers from arthritis in various joints in her body, however this pain does not feel like arthritic pain. Past medical history: Renal cancer status post stent placement 2020 Allergies: Several including Steven inhibitors fluoroquinolones and lisinopril, unknown reactions Medications: Arthritis Pain Management, ARB, levothyroxine, baby aspirin daily Family history: Unaware of major health problems running in the family Social: Denies drug alcohol or tobacco use Surgeries: Hip replacement in 2013, remote history of gallbladder an ex lap; 2020 renal stone placement ER course: Vitals unremarkable, including breathing on room air comfortably and heart rate in the 80s Labs are significant for hemoglobin of 8 which is unchanged from June 22, which was her last visit; sodium of 127 which is also unchanged from last visit, creatinine 1.4 which is slightly higher than last visit Cardiac: Troponin 0.34 0.38, 0.41 over 6 hours, EKG not supportive of acute ischemia Urinalysis showing 3+ leukocyte esterase Review of Systems Review of Systems: All systems reviewed & are unremarkable except as noted in HPI and below [facility] Past Medical History Medical History Adult hypothyroidism Anemia Arthritis Chronic hyponatremia COPD (chronic obstructive pulmonary disease) Diverticulitis Essential (primary) hypertension Gastroesophageal reflux disease without esophagitis GERD (gastroesophageal reflux disease) Hypertension IBS (irritable bowel syndrome) ILD (interstitial lung disease) Iron deficiency anemia Mass of right kidney Mixed hyperlipidemia Primary osteoarthritis involving multiple joints Psoriasis Pulmonary arterial hypertension Right renal mass Initially noted on imaging November 2020 with more suspicious imaging 03/2020 Spinal stenosis, unspecified region other than cervical Thoracic aortic aneurysm Thoracic ascending aortic aneurysm 4.5 x 4.1 cm on hyperdense lesion CT November 2020 Surgical History Surgical History H/O: hysterectomy History of back surgery History of bladder surgery History of right hip replacement History of total hip replacement Hx of cholecystectomy Family History Family History Mother Cerebrovascular accident Father Acute myocardial infarction Sibling Heart disease Social History Social History Social History: She is and lives alone. the patient quit smoking about 35 years ago. 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 The patient has 2 children. Primary care physician: Dr. Victorino Bunn Code status: Full code [facility] power of bottle tester: Shayy Adames Smoking packs per day: 1 Smoking cigarettes per day: 20.0 Years smoked: 20 Smoking pack-years: 20.00 Smoking status: Former smoker Tobacco type: cigarettes Smoking end date: 02/03/86 Alcohol intake: never Substance use: never Substance use type: does not use Gender identity (if verbalized by the patient): Female Spiritual care concerns: No Agree to blood products: Yes Meds Home Medi
--- NOTE | 2021-06-30 16:36 | PC.NURSE ---
This patient, Aryan Nick, was transferred to [facility] on 06/30/21 at 1628. Personal belongings sent with patient. Report given to Arianne DURAN. Appropriate documentation sent with patient.
[2021-06-30] MEDS: SODIUM CHLORIDE 1 GM TABLET PO (17:03)
[2021-06-30] MEDS: CEPHALEXIN 250 MG CAPSULE PO (20:45)
[2021-06-30] MEDS: ASPIRIN 81 MG ENTERIC TABLET PO (20:45)
[2021-07-01] MEDS: SODIUM CHLORIDE 0.9% IV 1,000 ML 125 ML IV CONT ×2 (02:53→18:34)
[2021-07-01] MEDS: LEVOTHYROXINE SODIUM 50 MCG TABLET PO (05:43)
[2021-07-01 06:02] LABS: Basophils Absolute Auto 0.1 K/mm3 (0.0-0.1); Basophils Percent Auto 0.6 % (0.2-1.2); Eosinophils Absolute Auto 0.3 K/mm3 (0-0.3); Hematocrit 25.8 % (37.0-47.0); Hemoglobin 7.5 g/dL (12.0-15.0); Immature Granulocyte Absolute 0.05 K/mm3 (0.00-0.031); Immature Granulocyte Percent A 0.5 % (0-0.5); Lymphocytes Absolute Auto 1.16 K/mm3 (0.9-3.2); Lymphocytes Percent Auto 12.2 % (18.3-44.2); Mean Corpuscular HGB Conc 29.1 g/dl (32-36); Mean Corpuscular Hemoglobin 24.8 pg (26-34); Mean Corpuscular Volume 85.4 fl (80-100); Mean Platelet Volume 8.4 fl (7.4-10.4); Monocytes Absolute Auto 0.6 K/mm3 (0.1-0.6); Neutrophils Absolute Auto 7.4 K/mm3 (1.3-6.7); Neutrophils Percent Auto 77.7 % (45.5-73.1); Platelet Count Result 499 k/mm3 (150-375); Red Blood Count 3.02 M/mm3 (4.2-5.4); Red Cell Distribution Width 14.7 % (11.5-14.5); White Blood Count 9.5 K/mm3 (4.5-10.0)
[2021-07-01 06:07] LABS: Alanine Aminotransferase 17 U/L (4-35); Albumin Level 2.8 g/dL (3.5-5.1); Alkaline Phosphatase 89 U/L (38-126); Anion Gap 5 mmol/L (8-16); Aspartate Amino Transferase 26 U/L (14-36); Bilirubin,Total 0.3 mg/dL (0.2-1.3); Blood Urea Nitrogen 30 mg/dL (7-17); Calcium 9.3 mg/dL (8.4-10.2); Carbon Dioxide 21 mmol/L (22-30); Chloride 103 mmol/L (98-107); Estimated CRCL calculation 28 ml/min; Estimated Glomerular Filt Rate 43; Glucose 80 mg/dL (65-110); Phosphorus 4.2 mg/dL (2.5-4.5); Potassium 4.4 mmol/L (3.4-5.0); Sodium 129 mmol/L (137-145)
[2021-07-01 07:51] LABS: Hypochromasia 1+ (NORMAL); Platelet Estimate Adequate (Adequate); Poikilocytosis 1+ (NORMAL)
[2021-07-01 08:49] VITALS: BP 122/53; PULSE 78; O2SAT 94
[2021-07-01] MEDS: SODIUM CHLORIDE 1 GM TABLET PO ×2 (08:53→17:38)
[2021-07-01] MEDS: PANTOPRAZOLE 40 MG TABLET PO (08:53)
[2021-07-01] MEDS: CEPHALEXIN 250 MG CAPSULE PO ×2 (09:23→20:46)
[2021-07-01] MEDS: CANDESARTAN CILEXETIL 16 MG TABLET PO (09:23)
--- NOTE | 2021-07-01 14:17 | PCPTNOTE ---
Pt reports being sic. Wants to try tomorrow. MV
--- NOTE | 2021-07-01 16:01 | PM.IMPN ---
Progress Note: A&P Assessment and Plan (1) Anemia: Qualifiers: Anemia type: unspecified type Qualified Code(s): D64.9 - Anemia, unspecified Code(s): D64.9 - Anemia, unspecified Status: Acute Assessment and Plan: Hemoglobin has dropped slightly from 8 to 7.5, this is stable from last visit . Most likely related to anemia of chronic disease, however iron studies reveal low iron indices. Will start oral supplementation. Also pending haptoglobin and LDH Continue to monitor for need for infusion. Transfuse for Hb less than 7. Most likely source of troponin elevation (2) Elevated troponin: Code(s): R77.8 - Other specified abnormalities of plasma proteins Status: Acute Assessment and Plan: Troponins are 0.34, 0.38, 0.41, which is not an ACS pattern Furthermore patient's pain is lower abdominal, would be atypical for ACS, and also is nonexertional EKG is not supportive of acute ischemia Taken together, this is not the picture ACS, and the pain is better explained by a cystitis (3) Renal cell carcinoma: Code(s): C64.9 - Malignant neoplasm of unspecified kidney, except renal pelvis Status: Acute Assessment and Plan: Previously diagnosed, status post stent placement earlier 2020 CT shows metastases to IVC with thrombus and retroperitoneal lymph nodes, patient not aware of this Will send to oncologist for follow-up Continue DVT prophylaxis (4) Hyponatremia: Code(s): E87.1 - Hypo-osmolality and hyponatremia Status: Acute Assessment and Plan: Patient is chronically hyponatremic, 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 We will obtain urine osmolality Differential wide, including syndrome of inappropriate ADH secretion related to malignancy. Continue gentle hydration (5) UTI (urinary tract infection): Code(s): N39.0 - Urinary tract infection, site not specified Status: Acute Assessment and Plan: Would help explain lower abdominal pain, 3+ leukocyte esterase in urine Urine culture pending Continue Macrobid and modify based on cultures (6) Hiatal hernia: Code(s): K44.9 - Diaphragmatic hernia without obstruction or gangrene Status: Acute Assessment and Plan: Seen on CT abdomen and pelvis Also helps explain lower abdominal pain Continue Protonix b.i.d. (7) Aortic dilatation: Code(s): I77.819 - Aortic ectasia, unspecified site Status: Acute Assessment and Plan: Mild dilation Does not meet criteria for overt aneurysm Will need outpatient monitoring, followed by box brander, explained to patient Subjective Date/time seen: 07/01/21 16:01 Narrative: Patient is an 80-year-old lady with history of renal cell carcinoma status post stent placement presenting with lower abdominal pain for a few days. Pain feels like burning, nonradiating. Patient is not ambulatory, however says that it is not an exertional pain, that is moving around and getting stressed does not induce it. No associated shortness of breath, fever, chills, diaphoresis. Never had this pain before. today there is improvement of pain control where it is rated at 3/10. Review of Systems Review of Systems: CONSTITUTIONAL: Negative for any fevers, chills, night sweats, tiredness, fatigue, malaise, anorexia or weight loss. CARDIOVASCULAR: Negative for chest pain, palpitations, dizziness, orthopnea or lower extremity edema. RESPIRATORY: Negative for shortness of breath, cough, wheezing, sputum. GASTROINTESTINAL: positive for lower abdominal pain. No nausea, vomiting or diarrhea. GENITOURINARY: Negative for frequency, nocturia, dysuria, hematuria. GYNECOLOGIC: Negative for abnormal bleeding. HEMATOLOGIC: Negative for any abnormal bleeding or bruising. MUSCULOSKELETAL: Positive for joint pain; no swelling,or stiffness. SKIN: Negative for rashes, eruptions, lesions or dryness. NEUROLOGIC: Negative for any focal neurolo
[2021-07-01] MEDS: ENOXAPARIN 30 MG/0.3 ML SYRINGE SUB-Q (17:38)
[2021-07-01] MEDS: POLYSACCHARIDE IRON COMPLEX 150 MG CAPSULE PO (17:38)
[2021-07-01 20:00] VITALS: PULSE 87; RESP 18; O2SAT 99
[2021-07-01] MEDS: ASPIRIN 81 MG ENTERIC TABLET PO (20:46)
[2021-07-01 20:57] VITALS: BP 127/50; PULSE 87; RESP 18; TEMP 36; O2SAT 99
[2021-07-02] VITALS (9 sets, daily range): BP systolic 124–145; BP diastolic 46–80; PULSE 77–92; RESP 14–18; TEMP 36–37.4; O2SAT 99–100
[2021-07-02] MEDS: SODIUM CHLORIDE 0.9% IV 1,000 ML 125 ML IV CONT ×3 (02:21→21:30)
[2021-07-02] MEDS: LEVOTHYROXINE SODIUM 50 MCG TABLET PO (05:16)
[2021-07-02] MEDS: CEPHALEXIN 250 MG CAPSULE PO ×2 (08:05→20:29)
[2021-07-02] MEDS: CANDESARTAN CILEXETIL 16 MG TABLET PO (08:05)
[2021-07-02] MEDS: POLYSACCHARIDE IRON COMPLEX 150 MG CAPSULE PO ×2 (08:05→17:48)
[2021-07-02] MEDS: SODIUM CHLORIDE 1 GM TABLET PO ×2 (08:05→17:49)
[2021-07-02] MEDS: PANTOPRAZOLE 40 MG TABLET PO (08:06)
[2021-07-02 08:42] LABS: Basophils Percent Auto 0.5 % (0.2-1.2); Eosinophils Absolute Auto 0.3 K/mm3 (0-0.3); Eosinophils Percent Auto 3.2 % (0-4.4); Hematocrit 22.7 % (37.0-47.0); Immature Granulocyte Absolute 0.05 K/mm3 (0.00-0.031); Immature Granulocyte Percent A 0.6 % (0-0.5); Mean Corpuscular Volume 83.5 fl (80-100); Mean Platelet Volume 8.2 fl (7.4-10.4); Monocytes Absolute Auto 0.6 K/mm3 (0.1-0.6); Neutrophils Absolute Auto 6.4 K/mm3 (1.3-6.7); Neutrophils Percent Auto 75.7 % (45.5-73.1); Platelet Count Result 434 k/mm3 (150-375); Red Blood Count 2.72 M/mm3 (4.2-5.4); Red Cell Distribution Width 14.6 % (11.5-14.5); White Blood Count 8.4 K/mm3 (4.5-10.0)
[2021-07-02 08:52] LABS: Alanine Aminotransferase 13 U/L (4-35); Albumin Level 2.5 g/dL (3.5-5.1); Alkaline Phosphatase 81 U/L (38-126); Anion Gap 4 mmol/L (8-16); Aspartate Amino Transferase 22 U/L (14-36); Bilirubin,Total 0.2 mg/dL (0.2-1.3); Blood Urea Nitrogen 22 mg/dL (7-17); Calcium 8.9 mg/dL (8.4-10.2); Carbon Dioxide 20 mmol/L (22-30); Chloride 106 mmol/L (98-107); Estimated CRCL calculation 31 ml/min; Estimated Glomerular Filt Rate 48; Glucose 86 mg/dL (65-110); Potassium 4.1 mmol/L (3.4-5.0); Sodium 130 mmol/L (137-145)
[2021-07-02 08:55] LABS: Hemoglobin 6.8 g/dL (12.0-15.0)
--- NOTE | 2021-07-02 11:45 | PM.IMPN ---
Progress Note: A&P Assessment and Plan (1) Anemia: Qualifiers: Anemia type: unspecified type Qualified Code(s): D64.9 - Anemia, unspecified Code(s): D64.9 - Anemia, unspecified Status: Acute Assessment and Plan: Hemoglobin down to 6.8 today. We will infuse 1 unit STAT. Chronic anemia likely related to anemia of chronic disease, however unsure why there is an acute drop. No overt bleed-patient denies hemoptysis hematemesis hematuria or hematochezia, or melena. Discussed with patient possibility of EGD and/or colonoscopy, and she is open to EGD, will consider colonoscopy. As such, will consult GI. Normocytic anemia, will hold off on IV iron supplementation, as ferritin is normal and TIBC is low. Continue p.o. iron supplementation. Reticulocyte count is low. Haptoglobin is pending. Most likely source of troponin elevation (2) Elevated troponin: Code(s): R77.8 - Other specified abnormalities of plasma proteins Status: Acute Assessment and Plan: Troponins are 0.34, 0.38, 0.41, which is not an ACS pattern Furthermore patient's pain is lower abdominal, would be atypical for ACS, and also is nonexertional EKG is not supportive of acute ischemia Taken together, this is not the picture ACS, and the pain is better explained by a cystitis Troponin elevation likely related to anemia (3) History of renal stent: Status: Acute Assessment and Plan: According to patient, was placed in April 06, with plan to remove at beginning of June. Urology saw her 06/21 and noted that her stent would be managed as outpatient. As patient is asking about stent, and she will be admitted for another day, will consult urology to see if they would like to attempt stent removal while admitted. 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 We will obtain urine osmolality Differential wide, including syndrome of inappropriate ADH secretion related to malignancy. Continue gentle hydration (6) UTI (urinary tract infection): Code(s): N39.0 - Urinary tract infection, site not specified Status: Acute Assessment and Plan: Would help explain lower abdominal pain, 3+ leukocyte esterase in urine Urine culture pending Continue Macrobid and modify based on cultures (7) Hiatal hernia: Code(s): K44.9 - Diaphragmatic hernia without obstruction or gangrene Status: Acute Assessment and Plan: Seen on CT abdomen and pelvis Also helps explain lower abdominal pain Continue Protonix b.i.d. (8) Aortic dilatation: Code(s): I77.819 - Aortic ectasia, unspecified site Status: Acute Assessment and Plan: Mild dilation Does not meet criteria for overt aneurysm Will need outpatient monitoring, followed by financial services professional, explained to patient Subjective Date/time seen: 07/02/21 11:45 Patient continues to feel weak, not able to tolerate much of a diet. Denies abdominal pain or burning. Not noticed any blood in urine, stool, hemoptysis, hematemesis. Review of Systems Review of Systems: All systems reviewed & are unremarkable except as noted in HPI and below Exam Const: General: no acute distress Neck: Neck: no JVD Resp: Effort & Inspection: normal respiratory effort Auscultation: clear to auscultation bilaterally Cardio: Rate: regular rate Rhythm: regular rhythm Objective Data Vital Signs Vit
--- NOTE | 2021-07-02 12:39 | WPDGICN ---
Assessment and Plan Assessment and plan (1) Anemia: Code(s): D64.9 - Anemia, unspecified <Kim Bautista APRN - Last Filed: 07/02/21 12:50> Status: Acute <Kim Bautista APRN - Last Filed: 07/02/21 12:50> Assessment and Plan: Impression: 1. Anemia likely multifactorial secondary to renal cell carcinoma with mets with no evidence of active GI bleed at this time. Could consider PUD vs. Gastritis Vs. AVMs with setting of chronic NSAID use 2. Abdominal pain likely r/t malignancy. No evidence of acute process on CT imaging 3. GERD 4. Hypothyroidism 5. Hypertension 6. Diverticulosis Recommendations 1. Transfuse 1 unit. Monitor H&H, Transfuse PRN 2. Increase PPI BID IV 3. Monitor for active GI bleeding 4. Consider EGD Sunday if H&H continues to drop 5. Hold NSAIDs 6. Monitor H&H <Kim Bautista APRN - Last Filed: 07/02/21 12:50> GI Consult Note Consult date/time: 07/02/21 12:39 <Kim Bautista APRN - Last Filed: 07/02/21 12:50> HPI: Aryan Nick is a 80 year old female who presented to the hospital with lower abdominal pain. She is asked to be seen for anemia. She does state she is continent of her stool but denies any melena or hematochezia. She continues to have bilateral lower quadrant abdominal pain that worsens with bending over and palpation. She has lost 100 lbs over the last 1 year. She was diagnosed with renal cell carcinoma with metastasis and recently had renal stent-no further treatment at this time. She does report occasional heartburn with tomatoes products. She denies any nausea, vomiting, dysphagia, odynophagia, diarrhea, or constipation. She reports colonoscopy with Dr. Mak and has hx of diverticulosis. She has had EGD in the past that was normal. No hx of PUD. She is on flurbiprofen 100 mg that she has been on for years. No family hx of GI malignancies. <Kim Bautista APRN - Last Filed: 07/02/21 12:50> [facility] Past Medical History Medical History: Medical History (Updated 07/02/21 @ 12:45 by Kim Bautista APRN) Adult hypothyroidism Anemia Arthritis Chronic hyponatremia COPD (chronic obstructive pulmonary disease) Diverticulitis Essential (primary) hypertension Gastroesophageal reflux disease without esophagitis GERD (gastroesophageal reflux disease) Hypertension IBS (irritable bowel syndrome) ILD (interstitial lung disease) Iron deficiency anemia Mixed hyperlipidemia Primary osteoarthritis involving multiple joints Psoriasis Pulmonary arterial hypertension Right renal mass Initially noted on imaging November 2020 with more suspicious imaging 03/2020 Spinal stenosis, unspecified region other than cervical Thoracic ascending aortic aneurysm 4.5 x 4.1 cm on hyperdense lesion CT November 2020 <Kim Bautista APRN - Last Filed: 07/02/21 12:50> Surgical History Surgical History: Surgical History (Updated 07/02/21 @ 12:05 by Joaquin Altamirano MD) H/O: hysterectomy History of back surgery History of bladder surgery History of right hip replacement History of total hip replacement Hx of cholecystectomy <Kim Bautista APRN - Last Filed: 07/02/21 12:50> Family History Family History: Family History Mother Cerebrovascular accident Father Acute myocardial infarction Sibling Heart disease <Kim Bautista APRN - Last Filed: 07/02/21 12:50> Social History Social History: Social History Social History: She is and lives alone. the patient quit smoking about 35 years ago. 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 The patient has 2 children. Primary care physician: Dr. Victorino Bunn Code status: Full code Healthcare power of criminal attorney: Shayy Adames Smoking packs per day: 1 Smoking cigarettes per day: 20.0 Years smoked: 20 Smoking
[2021-07-02 13:35] LABS: Hematocrit 21.1 % (37.0-47.0); Mean Corpuscular HGB Conc 30.3 g/dl (32-36); Mean Corpuscular Hemoglobin 25.1 pg (26-34); Mean Corpuscular Volume 82.7 fl (80-100); Mean Platelet Volume 8.5 fl (7.4-10.4); Platelet Count Result 455 k/mm3 (150-375); Red Blood Count 2.55 M/mm3 (4.2-5.4); Red Cell Distribution Width 14.4 % (11.5-14.5); White Blood Count 9.2 K/mm3 (4.5-10.0)
[2021-07-02 13:38] LABS: Hemoglobin 6.4 g/dL (12.0-15.0)
[2021-07-02] MEDS: SODIUM CHLORIDE 0.9% IV 250 ML 30 ML IV CONT (14:41)
[2021-07-02] MEDS: ENOXAPARIN 30 MG/0.3 ML SYRINGE SUB-Q (17:49)
[2021-07-02 20:03] LABS: Hematocrit 27.3 % (37.0-47.0); Hemoglobin 8.3 g/dL (12.0-15.0)
[2021-07-02] MEDS: ASPIRIN 81 MG ENTERIC TABLET PO (20:30)
[2021-07-02] MEDS: PANTOPRAZOLE SODIUM IV 40 MG VIAL IV PUSH (20:30)
[2021-07-03] VITALS: BP 146/65; PULSE 84; RESP 18; TEMP 36.8; O2SAT 100
[2021-07-03] MEDS: SODIUM CHLORIDE 0.9% IV 1,000 ML 125 ML IV CONT ×3 (05:33→20:56)
[2021-07-03] MEDS: LEVOTHYROXINE SODIUM 50 MCG TABLET PO (05:34)
[2021-07-03 06:01] VITALS: BP 142/68; PULSE 84; RESP 18; TEMP 36.5; O2SAT 98
[2021-07-03 06:15] LABS: Basophils Percent Auto 0.3 % (0.2-1.2); Eosinophils Absolute Auto 0.2 K/mm3 (0-0.3); Hemoglobin 7.6 g/dL (12.0-15.0); Immature Granulocyte Absolute 0.06 K/mm3 (0.00-0.031); Immature Granulocyte Percent A 0.7 % (0-0.5); Lymphocytes Absolute Auto 0.97 K/mm3 (0.9-3.2); Lymphocytes Percent Auto 10.8 % (18.3-44.2); Mean Corpuscular HGB Conc 30.4 g/dl (32-36); Mean Corpuscular Hemoglobin 25.7 pg (26-34); Mean Corpuscular Volume 84.5 fl (80-100); Mean Platelet Volume 8.5 fl (7.4-10.4); Monocytes Absolute Auto 0.5 K/mm3 (0.1-0.6); Monocytes Percent Auto 5.9 % (2.6-8.5); Neutrophils Absolute Auto 7.2 K/mm3 (1.3-6.7); Neutrophils Percent Auto 80.3 % (45.5-73.1); Platelet Count Result 427 k/mm3 (150-375); Red Blood Count 2.96 M/mm3 (4.2-5.4); Red Cell Distribution Width 14.5 % (11.5-14.5)
[2021-07-03 06:22] LABS: Alanine Aminotransferase 13 U/L (4-35); Albumin Level 2.3 g/dL (3.5-5.1); Alkaline Phosphatase 76 U/L (38-126); Anion Gap 2 mmol/L (8-16); Aspartate Amino Transferase 20 U/L (14-36); Bilirubin,Total 0.4 mg/dL (0.2-1.3); Blood Urea Nitrogen 20 mg/dL (7-17); Calcium 8.7 mg/dL (8.4-10.2); Carbon Dioxide 20 mmol/L (22-30); Chloride 107 mmol/L (98-107); Estimated CRCL calculation 34 ml/min; Estimated Glomerular Filt Rate 53; Glucose 91 mg/dL (65-110); Magnesium 1.6 mg/dL (1.6-2.3); Phosphorus 2.8 mg/dL (2.5-4.5); Potassium 3.8 mmol/L (3.4-5.0); Sodium 129 mmol/L (137-145)
[2021-07-03] MEDS: SODIUM CHLORIDE 1 GM TABLET PO ×2 (09:32→18:49)
[2021-07-03] MEDS: CEPHALEXIN 250 MG CAPSULE PO ×2 (09:32→20:41)
[2021-07-03] MEDS: CANDESARTAN CILEXETIL 16 MG TABLET PO (09:32)
[2021-07-03] MEDS: POLYSACCHARIDE IRON COMPLEX 150 MG CAPSULE PO ×2 (09:32→18:49)
[2021-07-03] MEDS: PANTOPRAZOLE SODIUM IV 40 MG VIAL IV PUSH ×2 (09:32→20:41)
--- NOTE | 2021-07-03 09:44 | WPDURCON ---
Assessment and Plan Assessment and plan (1) History of renal stent: Status: Acute Assessment and Plan: history of right ureteral stent - no current indication to make any changes to the indwelling stent - this could be removed as an outpatient; discussed with pt today (2) Renal cell carcinoma: Code(s): C64.9 - Malignant neoplasm of unspecified kidney, except renal pelvis Status: Acute Assessment and Plan: large metastatic right renal mass - she is not a surgical candidate; oncology could discuss potential systemic therapies with her - with ivc thrombus she should probably be on anticoagulation but will leave that decision to hospitalist - she should have a hospice consultation Urology Consult Note HPI Date Seen: 07/03/21 Requesting Physician: Heather Butcher DO Primary Care Provider: Victorino Bunn DO Consult Narrative Narrative: Aryan Nick is a 80 year old female with an unfortunate history of a right renal mass that may be renal or urothelial. She had a stent placed a few months ago. She came in for lower abdominal pain. CT shows progression of the mass with likely IVC thrombus and RP lymphadenopathy. She also has significant constipation which is the likely etiology of her lower abd pain. Stent is in appropriate position on CT. Creat is 1.0. UCx from 06/30 mixed, contaminated. Review of Systems Review of Systems: All systems reviewed & are unremarkable except as noted in HPI and below PMFSH Past Medical History Medical History (Updated 07/02/21 @ 12:45 by Kim Bautista APRN) Adult hypothyroidism Anemia Arthritis Chronic hyponatremia COPD (chronic obstructive pulmonary disease) Diverticulitis Essential (primary) hypertension Gastroesophageal reflux disease without esophagitis GERD (gastroesophageal reflux disease) Hypertension IBS (irritable bowel syndrome) ILD (interstitial lung disease) Iron deficiency anemia Mixed hyperlipidemia Primary osteoarthritis involving multiple joints Psoriasis Pulmonary arterial hypertension Right renal mass Initially noted on imaging November 2020 with more suspicious imaging 03/2020 Spinal stenosis, unspecified region other than cervical Thoracic ascending aortic aneurysm 4.5 x 4.1 cm on hyperdense lesion CT November 2020 Surgical History Surgical History (Updated 07/02/21 @ 12:05 by Joaquin Altamirano MD) H/O: hysterectomy History of back surgery History of bladder surgery History of right hip replacement History of total hip replacement Hx of cholecystectomy Family History Family History Mother Cerebrovascular accident Father Acute myocardial infarction Sibling Heart disease Social History Social History Social History: She is and lives alone. the patient quit smoking about 35 years ago. 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 Primary care physician: Dr. Victorino Bunn Code status: Full code Healthcare power of assistant city attorney: Shayy Adames Smoking packs per day: 1 Smoking cigarettes per day: 20.0 Years smoked: 20 Smoking pack-years: 20.00 Smoking status: Former smoker Tobacco type: cigarettes Smoking end date: 02/03/86 Alcohol intake: never Substance use: never Substance use type: does not use Gender identity (if verbalized by the patient): Female Spiritual care concerns: No Agree to blood products: Yes Meds Home Medications and Allergies Home Medications Medication Instructions Recorded Confirmed Type aspirin 81 mg tablet,delayed 81 mg PO HS 10/13/19 06/30/21 History release lzsjlncx-obt-hvldn acid 0.4 1 tablet PO DAILY 10/13/19 06/30/21 History mg-lycopene 300 mcg-lutein 250 mcg tablet albuterol sulfate 90 mcg/actuation 2 inhalation INHALATION Q4H PRN 03/10/20 06/30/21 Rx
--- NOTE | 2021-07-03 11:38 | WPDGIPROGNO ---
Subjective Date/time seen: 07/03/21 11:38 This very pleasant lady continues to have some abdominal pain. No nausea or vomiting. No hematochezia, melena or acholic stools. Her hemoglobin hematocrit have decreased slightly. Remainder of the review systems unremarkable. General: very pleasant patient in no acute distress. HEENT: Head was normocephalic sclerae is clear mouth without masses neck was supple. Heart: Rate rhythm regular without S3 or S4. Lungs: Crackles in the bases. Abdomen: Soft with Tenderness in the lower abdomen. Neurologic: Cranial nerves 2 through 12 intact. No focal defects. No clonus. Musculoskeletal system: Revealed no joint tenderness or swelling no muscle atrophy. Extremities: Reveal no significant edema. Skin: Warm and dry with normal turgor. Mental status: intact. Patient is alert and oriented. Impression: 1. Anemia likely multifactorial secondary to renal cell carcinoma with mets with no evidence of active GI bleed at this time. Could consider PUD vs. Gastritis Vs. AVMs with setting of chronic NSAID use 2. Abdominal pain likely r/t malignancy. No evidence of acute process on CT imaging 3. GERD 4. Hypothyroidism 5. Hypertension 6. Diverticulosis . Recommendation: Continue Protonix q.12 hours. Follow hemoglobin hematocrit. Plan EGD in the morning. NSAIDs on hold. Continue supportive care. Review of Systems Review of Systems: All systems reviewed & are unremarkable except as noted in HPI and below Objective Data Vital Signs Vital Signs: Vital Signs - 24 hr 07/02/21 13:48 07/02/21 14:50 07/02/21 15:05 Temperature 37.1 C 37.4 C 37.2 C Pulse Rate 80 80 80 Respiratory Rate 16 17 17 Blood Pressure 135/56 L 129/59 L 124/46 L Pulse Oximetry 100 99 99 07/02/21 16:00 07/02/21 17:00 07/02/21 17:50 Temperature 37.2 C 37.3 C 36.9 C Pulse Rate 80 77 86 Respiratory Rate 14 16 16 Blood Pressure 131/53 L 145/60 H 135/61 Pulse Oximetry 100 100 100 07/02/21 20:00 07/03/21 00:00 07/03/21 06:01 Temperature 36.5 C 36.8 C 36.5 C Pulse Rate 90 84 84 Respiratory Rate 18 18 18 Blood Pressure 126/80 146/65 H 142/68 H Pulse Oximetry 100 100 98 Intake/Output Intake/Output: Intake & Output 06/30/21 07/01/21 07/02/21 07/03/21 23:59 23:59 23:59 23:59 Intake Total 1640 3220 4286 1600 Output Total 0 300 Balance 1640 2920 4286 1600 Meds/Results Medications: Active Medications Generic Name Dose Route Start Last Admin Trade Name Freq PRN Reason Stop Dose Admin Albuterol 2 puff 06/30/21 11:40 Albuterol Sulfate (*Sp) Aerosol 1 Puff INHALATION Q4H PRN shortness of breath or wheezing Benzonatate 100 mg 06/30/21 11:40 Benzonatate 100 Mg Capsule PO TID PRN Cough Candesartan Cilexetil 16 mg 07/01/21 09:00 07/03/21 09:32 Candesartan Cilexetil 16 Mg Tablet PO 16 mg DAILY LUZ MARINA Administration Cephalexin HCl 250 mg 06/30/21 21:00 07/03/21 09:32 Cephalexin 250 Mg Capsule PO 250 mg Q12HR LUZ MARINA Administration Clobetasol Propionate 1 applic 06/30/21 11:40 Clobetasol Propionate 0.05% Cream 30 Gm TOPICAL BID PRN Rash Docusate Sodium 100 mg 06/30/21 11:40 Docusate Sodium 100 Mg Capsule PO Q12HR PRN Constipation Sodium Chloride 1,000 mls @ 125 mls/hr 06/30/21 02:15 07/03/21 05:33 Normal Saline Iv IV CONT 125 mls/hr .Q8H LUZ MARINA Administration Levothyroxine Sodium 50 mcg 07/01/21 06:30 07/03/21 05:34 Levothyroxine Sodium 50 Mcg Tablet PO 50 mcg DAILY@0630 [facility] Administration Ondansetron HCl 4 mg 06/30/21 02:15 Ondansetron Inj 4 Mg/2 Ml Vial IV PUSH Q4H PRN Nausea Pantoprazole Sodium 40 mg 07/02/21 21:00 07/03/21 09:32 Pantoprazole Sodium Iv 40 Mg Vial IV PUSH 40 mg Q12HR LUZ MARINA Administration Polysaccharide Iron Complex 150 mg 07/01/21 17:00 07/03/21 09:32 Polysaccharide Iron Complex 150 Mg Capsule PO 150 mg BIDWM LUZ MARINA Administrat
--- NOTE | 2021-07-03 11:44 | PM.IMPN ---
Progress Note: A&P Assessment and Plan (1) Anemia: Qualifiers: Anemia type: unspecified type Qualified Code(s): D64.9 - Anemia, unspecified Code(s): D64.9 - Anemia, unspecified Status: Acute Assessment and Plan: Hemoglobin responded well to blood transfusion yesterday, however dipped again about 0.7 since then. Still no overt bleeding, patient denies hematochezia or melena, or any hemoptysis or hematemesis or hematuria. Continues to feel weak symptomatic leave. Discussed again EGD possibility today, and she says she is open to this. GI is on board, planning for potential intervention tomorrow. Will keep her NPO At midnight in anticipation of this. Chronic anemia likely related to anemia of chronic disease. Normocytic anemia, will hold off on IV iron supplementation, as ferritin is normal and TIBC is low. Continue p.o. iron supplementation. Reticulocyte count is low. Most likely source of troponin elevation on admission. (2) Elevated troponin: Code(s): R77.8 - Other specified abnormalities of plasma proteins Status: Acute Assessment and Plan: Troponins are 0.34, 0.38, 0.41, which is not an ACS pattern Furthermore patient's pain is lower abdominal, would be atypical for ACS, and also is nonexertional EKG is not supportive of acute ischemia Taken together, this is not the picture ACS, and the pain is better explained by a cystitis Troponin elevation likely related to anemia (3) History of renal stent: Status: Acute Assessment and Plan: According to patient, was placed in April , with plan to remove at beginning of June. Urology saw her 06/21 and noted that her stent would be managed as outpatient. As patient is asking about stent, and she will be admitted for another day, will consult urology to see if they would like to attempt stent removal while admitted. (4) Renal cell carcinoma: Code(s): C64.9 - Malignant neoplasm of unspecified kidney, except renal pelvis Status: Acute Assessment and Plan: Previously diagnosed, status post stent placement earlier 2020 CT shows metastases to IVC with thrombus and retroperitoneal lymph nodes. Continue DVT prophylaxis here, will need Hematology-Oncology follow-up on discharge. 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 We will obtain urine osmolality Differential wide, including syndrome of inappropriate ADH secretion related to malignancy. Continue gentle hydration (6) UTI (urinary tract infection): Code(s): N39.0 - Urinary tract infection, site not specified Status: Acute Assessment and Plan: Would help explain lower abdominal pain, 3+ leukocyte esterase in urine Urine culture pending Continue Macrobid and modify based on cultures (7) Hiatal hernia: Code(s): K44.9 - Diaphragmatic hernia without obstruction or gangrene Status: Acute Assessment and Plan: Seen on CT abdomen and pelvis Also helps explain lower abdominal pain Continue Protonix b.i.d. (8) Aortic dilatation: Code(s): I77.819 - Aortic ectasia, unspecified site Status: Acute Assessment and Plan: Mild dilation Does not meet criteria for overt aneurysm Will need outpatient monitoring, followed by clay worker, explained to patient Subjective Date/time seen: 07/03/21 11:44 Resting comfortably in bed. Denies ongoing signs of overt bleeding, including vomiting blood, or blood in stool or urine. Does endorse diffuse abdominal pain. Feels bloated after eating. Sleeping comfortably. Review of Systems Review of Systems: All systems reviewed & are unremarkable except as noted in HPI and below Exam Narrative: No acute medical complaints. Able to tolerate diet, albeit with some bloating. Const: Gene
[2021-07-03 15:22] VITALS: BP 132/56; PULSE 63; RESP 14; TEMP 37.1; O2SAT 100
[2021-07-03 22:00] VITALS: BP 135/63; PULSE 89; RESP 20; TEMP 36.7; O2SAT 96
[2021-07-03 23:05] LABS: Osmolality, Urine 577 mOsm/kg (50-1200)
[2021-07-04] MEDS: SODIUM CHLORIDE 0.9% IV 1,000 ML 125 ML IV CONT (05:03)
[2021-07-04 06:00] VITALS: BP 137/64; PULSE 83; RESP 18; TEMP 37.4; O2SAT 97
[2021-07-04 06:00] LABS: Basophils Percent Auto 0.4 % (0.2-1.2); Eosinophils Absolute Auto 0.3 K/mm3 (0-0.3); Eosinophils Percent Auto 3.2 % (0-4.4); Hematocrit 26.3 % (37.0-47.0); Hemoglobin 7.9 g/dL (12.0-15.0); Immature Granulocyte Absolute 0.06 K/mm3 (0.00-0.031); Immature Granulocyte Percent A 0.7 % (0-0.5); Lymphocytes Absolute Auto 0.77 K/mm3 (0.9-3.2); Lymphocytes Percent Auto 8.6 % (18.3-44.2); Mean Corpuscular Hemoglobin 25.6 pg (26-34); Mean Corpuscular Volume 85.1 fl (80-100); Mean Platelet Volume 8.3 fl (7.4-10.4); Monocytes Absolute Auto 0.5 K/mm3 (0.1-0.6); Monocytes Percent Auto 5.7 % (2.6-8.5); Neutrophils Absolute Auto 7.3 K/mm3 (1.3-6.7); Neutrophils Percent Auto 81.4 % (45.5-73.1); Platelet Count Result 392 k/mm3 (150-375); Red Blood Count 3.09 M/mm3 (4.2-5.4); Red Cell Distribution Width 14.8 % (11.5-14.5)
[2021-07-04 06:14] LABS: Alanine Aminotransferase 15 U/L (4-35); Albumin Level 2.2 g/dL (3.5-5.1); Alkaline Phosphatase 74 U/L (38-126); Anion Gap 5 mmol/L (8-16); Aspartate Amino Transferase 22 U/L (14-36); Bilirubin,Total 0.2 mg/dL (0.2-1.3); Blood Urea Nitrogen 18 mg/dL (7-17); Calcium 8.5 mg/dL (8.4-10.2); Carbon Dioxide 19 mmol/L (22-30); Chloride 103 mmol/L (98-107); Estimated CRCL calculation 34 ml/min; Estimated Glomerular Filt Rate 53; Glucose 98 mg/dL (65-110); Magnesium 1.5 mg/dL (1.6-2.3); Phosphorus 2.8 mg/dL (2.5-4.5); Potassium 3.6 mmol/L (3.4-5.0); Sodium 127 mmol/L (137-145)
[2021-07-04] MEDS: CEPHALEXIN 250 MG CAPSULE PO ×2 (08:33→20:41)
[2021-07-04] MEDS: PANTOPRAZOLE SODIUM IV 40 MG VIAL IV PUSH (08:33)
[2021-07-04] MEDS: CANDESARTAN CILEXETIL 16 MG TABLET PO (08:33)
[2021-07-04] MEDS: POLYSACCHARIDE IRON COMPLEX 150 MG CAPSULE PO ×2 (08:33→17:17)
[2021-07-04 10:52] LABS: Haptoglobin 395 mg/dL (43-212)
--- NOTE | 2021-07-04 14:58 | PC.NURSE ---
To GI Lab per efren, IV right wrist SL. Report given.
[2021-07-04 15:06] VITALS: BP 157/61; PULSE 76; RESP 18; TEMP 36.8; O2SAT 98
[2021-07-04] MEDS: LACTATED RINGERS 1,000 ML 150 ML IV CONT (15:08)
--- NOTE | 2021-07-04 15:13 | WPDANESEPPF ---
Anes - Initial Pre Proc Eval Procedure: Operation Date: 07/04/21 15:00 Proposed Procedures p Esophagogastroduodenoscopy - Mathieu Cerna MD Date/Time: 07/04/21 15:13 Surgeon: Heather Butcher DO Pre Op Diagnosis: abdominal pain, elevated troponin Patient Data Age: 80 Gender: F Height: 1.68 m Weight: 56.5 kg Last Vital Signs Temp 36.8 C 07/04/21 15:06 Pulse 76 07/04/21 15:06 Resp 18 07/04/21 15:06 BP 157/61 H 07/04/21 15:06 Pulse Ox 98 07/04/21 15:06 Allergies Allergy/AdvReac Type Severity Reaction Status Date / Time SEBASTIEN Inhibitors Allergy Unknown unknown Verified 06/29/21 23:09 ciprofloxacin Allergy Unknown unknown Verified 06/29/21 23:09 lisinopril Allergy Unknown unknown Verified 06/29/21 23:09 Sulfa (Sulfonamide AdvReac Intermediate DIARRHEA Verified 06/29/21 23:09 Antibiotics) codeine AdvReac Mild NAUSEA/VOMI Verified 06/29/21 23:09 TING decongestants AdvReac Other Uncoded 06/29/21 23:09 Home Medications Medication Instructions Recorded Confirmed Type aspirin 81 mg tablet,delayed 81 mg PO HS 10/13/19 06/30/21 History release qhkjeydv-php-isxgf acid 0.4 1 tablet PO DAILY 10/13/19 06/30/21 History mg-lycopene 300 mcg-lutein 250 mcg tablet albuterol sulfate 90 mcg/actuation 2 inhalation INHALATION Q4H PRN 03/10/20 06/30/21 Rx aerosol inhaler #8.5 gm famotidine 40 mg PO DAILY 04/12/20 06/30/21 History flurbiprofen 100 mg tablet 100 mg PO BID #180 tablet 02/25/21 06/30/21 Rx candesartan 16 mg tablet 16 mg PO DAILY #90 tablet 02/28/21 06/30/21 Rx vitamin E 1 cap PO DAILY 03/17/21 06/30/21 History docusate sodium 100 mg PO Q12HR PRN #30 cap 03/22/21 06/30/21 Rx clobetasol 0.05 % topical cream 1 applic TOPICAL BID PRN #60 g 05/31/21 06/30/21 Rx levothyroxine [Synthroid] 50 mcg PO DAILY 06/21/21 06/30/21 History sodium chloride 1 g PO BIDWM #20 tablet 06/24/21 06/30/21 Rx benzonatate 100 mg PO TID PRN 06/30/21 06/30/21 History Laboratory Tests 06/30/21 06/30/21 07/04/21 12:02 13:44 05:39 WBC 9.0 K/mm3 K/mm3 (4.5-10.0) RBC 3.09 M/mm3 L M/mm3 (4.2-5.4) Hgb 7.9 g/dL L g/dL (12.0-15.0) Hct 26.3 % L % (37.0-47.0) MCV 85.1 fl fl (80-100) MCH 25.6 pg L pg (26-34) MCHC 30.0 g/dl L g/dl (32-36) RDW 14.8 % H % (11.5-14.5) Plt Count 392 k/mm3 H k/mm3 (150-375) MPV 8.3 fl fl (7.4-10.4) Immature Gran % (Auto) 0.7 % H % (0-0.5) Neut % (Auto) 81.4 % H % (45.5-73.1) Lymph % (Auto) 8.6 % L % (18.3-44.2) Hinds % (Auto) 5.7 % % (2.6-8.5) Eos % (Auto) 3.2 % % (0-4.4) Baso % (Auto) 0.4 % % (0.2-1.2) Lymph # (Auto) 0.77 K/mm3 L K/mm3 (0.9-3.2) Hinds # (Auto) 0.5 K/mm3 K/mm3 (0.1-0.6) Eos # (Auto) 0.3 K/mm3 K/mm3 (0-0.3) Baso # (Auto) 0.0 K/mm3 K/mm3 (0.0-0.1) Abs Immat Gran (auto) 0.06 K/mm3 H K/mm3 (0.00-0.031) Absolute Neuts (auto) 7.3 K/mm3 H K/mm3 (1.3-6.7) Absolute Nucleated RBC 0.0 K/mm3 K/mm3 (0.0-0.012) Nucleated RBC % 0.0 % % (0.0-0.2) Haptoglobin 395 mg/dL H mg/dL (43-212) Sodium Potassium Chloride Carbon Dioxide Anion Gap BUN Creatinine Estim Creat Clear Calc Estimated GFR Glucose Calcium Phosphorus Magnesium Total Bilirubin AST ALT Alkaline Phosphatase Total Protein Albumin Urine Osmolality 577 mOsm/kg mOsm/kg (50-1200) 07/04/21 05:39 WBC RBC Hgb Hct MCV MCH MCHC RDW Plt Count MPV Immature Gran % (Auto) Neut % (Auto) Lymph % (Auto)
[2021-07-04] MEDS: BENZOCAINE (*SP) 60 ML SPRAY CAN (HURRICAINE) 1 SPRAY MUCOUS MEM (15:54)
[2021-07-04 16:04] VITALS: BP 84/29; PULSE 76; RESP 20; O2SAT 96
[2021-07-04 16:14] VITALS: BP 99/44; PULSE 82; RESP 22; O2SAT 98
--- NOTE | 2021-07-04 16:21 | PM.IMPN ---
Progress Note: A&P Assessment and Plan (1) Anemia: Qualifiers: Anemia type: unspecified type Qualified Code(s): D64.9 - Anemia, unspecified Code(s): D64.9 - Anemia, unspecified Status: Acute Assessment and Plan: required blood transfusion 2 days ago, underwent EGD earlier today, which did not show gastritis or any significant evidence of ulcer in the esophagus or the stomach. Patient has said that she is not open to colonoscopy. At this point anemia appears to be related to cancer. continues to have no overt bleeding including no documented hematochezia melena hematemesis hematuria or hemoptysis. Will continue p.o. iron supplementation. No indication for IV iron supplementation as ferritin is normal. Reticulocyte count is low. Will observe hemoglobin level tomorrow, and so long as patient is feeling up to it, discharge home likely tomorrow morning. Most likely source of troponin elevation on admission. (2) Elevated troponin: Code(s): R77.8 - Other specified abnormalities of plasma proteins Status: Acute Assessment and Plan: Troponins are 0.34, 0.38, 0.41, which is not an ACS pattern Furthermore patient's pain is lower abdominal, would be atypical for ACS, and also is nonexertional EKG is not supportive of acute ischemia Taken together, this is not the picture ACS, and the pain is better explained by a cystitis Troponin elevation likely related to anemia (3) History of renal stent: Status: Acute Assessment and Plan: According to patient, was placed in April , with plan to remove at beginning of June. Urology saw her 06/21 and noted that her stent would be managed as outpatient. Seen by urology again today, reporting they will manage stent outpatient, no plan for intervention at this point. (4) Renal cell carcinoma: Code(s): C64.9 - Malignant neoplasm of unspecified kidney, except renal pelvis Status: Acute Assessment and Plan: Previously diagnosed, status post stent placement earlier 2020 CT shows metastases to IVC with thrombus and retroperitoneal lymph nodes. Will need Hematology-Oncology follow-up on discharge. 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 We will obtain urine osmolality Differential wide, including syndrome of inappropriate ADH secretion related to malignancy. 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 (6) UTI (urinary tract infection): Code(s): N39.0 - Urinary tract infection, site not specified Status: Acute Assessment and Plan: Would help explain lower abdominal pain, 3+ leukocyte esterase in urine Urine culture pending Continue Macrobid and modify based on cultures (7) Hiatal hernia: Code(s): K44.9 - Diaphragmatic hernia without obstruction or gangrene Status: Acute Assessment and Plan: Seen on CT abdomen and pelvis Also helps explain lower abdominal pain Continue Protonix b.i.d. (8) Aortic dilatation: Code(s): I77.819 - Aortic ectasia, unspecified site Status: Acute Assessment and Plan: Mild dilation Does not meet criteria for overt aneurysm Will need outpatient monitoring, followed by activity director, explained to patient Time Spent With Patient Time with patient: less than 15 minutes Subjective Date/time seen: 07/04/21 16:21 no interview possible as patient is in procedure at time of visit. Will try to see her again later today Review of Systems Review of Systems: patient and procedure time of visit Exam Narrative: will attempt to complete later in the day, patient was in for procedure Objective Data Vital Signs Vital Signs: Vital Signs - 24 hr 07/03/21 22:00 07/04
[2021-07-04 16:24] VITALS: BP 133/50; PULSE 80; RESP 22; O2SAT 98
[2021-07-04] MEDS: SODIUM CHLORIDE 1 GM TABLET PO (17:17)
[2021-07-04 21:16] VITALS: BP 135/52; PULSE 79; RESP 18; TEMP 37.3; O2SAT 99
[2021-07-05 05:29] VITALS: BP 126/61; PULSE 89; RESP 18; TEMP 36.9; O2SAT 98
[2021-07-05 05:50] LABS: Basophils Percent Auto 0.4 % (0.2-1.2); Eosinophils Absolute Auto 0.2 K/mm3 (0-0.3); Eosinophils Percent Auto 2.3 % (0-4.4); Hematocrit 27.7 % (37.0-47.0); Hemoglobin 8.4 g/dL (12.0-15.0); Immature Granulocyte Absolute 0.04 K/mm3 (0.00-0.031); Immature Granulocyte Percent A 0.4 % (0-0.5); Lymphocytes Percent Auto 8.7 % (18.3-44.2); Mean Corpuscular HGB Conc 30.3 g/dl (32-36); Mean Corpuscular Hemoglobin 26.3 pg (26-34); Mean Corpuscular Volume 86.6 fl (80-100); Mean Platelet Volume 8.3 fl (7.4-10.4); Monocytes Absolute Auto 0.5 K/mm3 (0.1-0.6); Neutrophils Absolute Auto 7.6 K/mm3 (1.3-6.7); Neutrophils Percent Auto 83.2 % (45.5-73.1); Platelet Count Result 401 k/mm3 (150-375); Red Cell Distribution Width 14.7 % (11.5-14.5); White Blood Count 9.2 K/mm3 (4.5-10.0)
[2021-07-05 06:15] LABS: Alanine Aminotransferase 16 U/L (4-35); Albumin Level 2.4 g/dL (3.5-5.1); Alkaline Phosphatase 79 U/L (38-126); Anion Gap 4 mmol/L (8-16); Aspartate Amino Transferase 23 U/L (14-36); Bilirubin,Total 0.3 mg/dL (0.2-1.3); Blood Urea Nitrogen 18 mg/dL (7-17); Calcium 8.7 mg/dL (8.4-10.2); Carbon Dioxide 20 mmol/L (22-30); Chloride 106 mmol/L (98-107); Estimated CRCL calculation 34 ml/min; Estimated Glomerular Filt Rate 53; Glucose 112 mg/dL (65-110); Magnesium 1.6 mg/dL (1.6-2.3); Phosphorus 2.9 mg/dL (2.5-4.5); Potassium 3.5 mmol/L (3.4-5.0); Sodium 130 mmol/L (137-145)
[2021-07-05] MEDS: LEVOTHYROXINE SODIUM 50 MCG TABLET PO (06:35)
[2021-07-05] MEDS: BENZONATATE 100 MG CAPSULE PO (09:08)
[2021-07-05] MEDS: CANDESARTAN CILEXETIL 16 MG TABLET PO (09:09)
[2021-07-05] MEDS: POLYSACCHARIDE IRON COMPLEX 150 MG CAPSULE PO ×2 (09:09→16:52)
[2021-07-05] MEDS: PANTOPRAZOLE 40 MG TABLET PO (09:09)
[2021-07-05] MEDS: CEPHALEXIN 250 MG CAPSULE PO ×2 (09:10→20:20)
[2021-07-05] MEDS: SODIUM CHLORIDE 1 GM TABLET PO ×2 (09:10→16:51)
--- NOTE | 2021-07-05 10:50 | WPDUROPN2 ---
Progress Note: A&P Assessment and Plan (1) Right renal mass: Code(s): N28.89 - Other specified disorders of kidney and ureter Status: Acute Assessment and Plan: Unfortunately patient is a non operative candidate. Patient will be discharged home with possible hospice in the near future. Subjective Subjective Date/Time Seen: 07/05/21 10:50 Principal diagnosis: Progressive right renal mass Interval history: Cindy is an non operative candidate with a right renal mass with possible tumor thrombus and retroperitoneal adenopathy. There is no further intervention from urologic standpoint. She will be discharged home for rehab/physical therapy and possibly hospice in the near future Review of Systems Review of Systems: All systems reviewed & are unremarkable except as noted in HPI and below Exam Const: General: cooperative and comfortable Objective Data Vital Signs Vital Signs: Vital Signs - 24 hr 07/04/21 15:06 07/04/21 16:04 07/04/21 16:14 Temperature 36.8 C Pulse Rate 76 76 82 Respiratory Rate 18 20 22 H Blood Pressure 157/61 H 84/29 L 99/44 L Pulse Oximetry 98 96 98 07/04/21 16:24 07/04/21 21:16 07/05/21 05:29 Temperature 37.3 C 36.9 C Pulse Rate 80 79 89 Respiratory Rate 22 H 18 18 Blood Pressure 133/50 L 135/52 L 126/61 Pulse Oximetry 98 99 98 Intake/Output Intake/Output: Intake & Output 07/02/21 07/03/21 07/04/21 07/05/21 23:59 23:59 23:59 23:59 Intake Total 4286 4140 3030 480 Balance 4286 4140 3030 480 Meds/Results Medications: Active Medications Generic Name Dose Route Start Last Admin Trade Name Freq PRN Reason Stop Dose Admin Albuterol 2 puff 06/30/21 11:40 Albuterol Sulfate (*Sp) Aerosol 1 Puff INHALATION Q4H PRN shortness of breath or wheezing Benzonatate 100 mg 06/30/21 11:40 07/05/21 09:08 Benzonatate 100 Mg Capsule PO 100 mg TID PRN Administration Cough Candesartan Cilexetil 16 mg 07/01/21 09:00 07/05/21 09:09 Candesartan Cilexetil 16 Mg Tablet PO 16 mg DAILY LUZ MARINA Administration Cephalexin HCl 250 mg 06/30/21 21:00 07/05/21 09:10 Cephalexin 250 Mg Capsule PO 250 mg Q12HR LUZ MARINA Administration Clobetasol Propionate 1 applic 06/30/21 11:40 Clobetasol Propionate 0.05% Cream 30 Gm TOPICAL BID PRN Rash Docusate Sodium 100 mg 06/30/21 11:40 Docusate Sodium 100 Mg Capsule PO Q12HR PRN Constipation Levothyroxine Sodium 50 mcg 07/01/21 06:30 07/05/21 06:35 Levothyroxine Sodium 50 Mcg Tablet PO 50 mcg DAILY@0630 [facility] Administration Ondansetron HCl 4 mg 06/30/21 02:15 Ondansetron Inj 4 Mg/2 Ml Vial IV PUSH Q4H PRN Nausea Pantoprazole Sodium 40 mg 07/05/21 09:00 07/05/21 09:09 Pantoprazole 40 Mg Tablet PO 40 mg QAM [facility] Administration Polysaccharide Iron Complex 150 mg 07/01/21 17:00 07/05/21 09:09 Polysaccharide Iron Complex 150 Mg Capsule PO 150 mg BIDWM [facility] Administration Sodium Chloride 1 gm 06/30/21 17:00 07/05/21 09:10 Sodium Chloride 1 Gm Tablet PO 1 gm BIDWM [facility] Administration Tramadol HCl 50 mg 06/30/21 12:44 Tramadol Hcl (*Crx) 50 Mg Tablet PO Q6H PRN Pain Rated 4-6 Radiology Results: ITS Impressions Abdomen/Pelvis CT 06/30/21 07:45 IMPRESSION: 1. Right renal hilar malignancy, could be transitional cell or renal cell cancer, with renal vein and IVC invasion, tumor thrombus. 2. Metastatic retroperitoneal lymphadenopathy. 3. Fecal impaction. Possible stercoral colitis. 4. Colonic diverticulosis. 5. Pulmonary fibrosis. 6. Small hiatal hernia. 7. Mildly dilated ascending aorta. Labs Labs: Laboratory Results - last 24 hr 06/30/21 07/05/21 07/05/21 12:02 05:40 05:40 WBC 9.2 RBC 3.20 L Hgb 8.4 L Hct 27.7 L MCV 86.6 MCH 26.3 MCHC 30.3 L RDW 14.7 H Plt Count 401 H MPV 8.3 Immature Gran % (Auto) 0.4 Neut % (Auto) 83.2 H
[2021-07-05 14:00] VITALS: BP 147/60; PULSE 77; RESP 18; TEMP 36.4; O2SAT 99
--- NOTE | 2021-07-05 14:43 | PCDIET ---
Nutrition Follow-Up Complete: Nutrition Diagnosis: Inadequate oral intake related to poor appetite as evidenced by reported and documented weight loss. Nutrition Goal: Patient to consume 50% of meals/supplements or greater. Goal not met. Patient consumed average of 20-25% of meals since last review on regular diet with 1200mL fluid restriction. Patient receiving Ensure Compact (120mL) with meals, as able to fit within fluid restriction. Plan for discharge and possible hospice noted. Would continue Ensure Compact TID at this time. Last recorded weight is 56.5 kg which is increased from last review. +I/O. Bowel Motility: Last documented BM on 07/03/21. Labs Reviewed: RBC (3.20), Hgb (8.4), Hct (27.7), Glu (112), BUN (18), Na (130), Alb (2.4) Meds Noted: Atacand, Synthroid, Sodium Chloride, Keflex, Protonix, Ultram, Niferex-150 Additional Notes: Coccyx macerated. Will continue to monitor with same goal. Nutrition Monitoring and Evaluation: Follow up in 3 days.
--- NOTE | 2021-07-05 15:01 | P.PNIM_ITS ---
Progress Note: A&P Assessment and Plan (1) Anemia: Qualifiers: Anemia type: unspecified type Qualified Code(s): D64.9 - Anemia, unspecified Code(s): D64.9 - Anemia, unspecified Status: Acute Assessment and Plan: required blood transfusion 2 days ago, underwent EGD earlier today, which did not show gastritis or any significant evidence of ulcer in the esophagus or the stomach. Patient has said that she is not open to colonoscopy. At this point anemia appears to be related to cancer. continues to have no overt bleeding including no documented hematochezia melena hematemesis hematuria or hemoptysis. Will continue p.o. iron supplementation. No indication for IV iron supplementation as ferritin is normal. Reticulocyte count is low. Will observe hemoglobin level tomorrow, and so long as patient is feeling up to it, discharge home likely tomorrow morning. Most likely source of troponin elevation on admission. Cindy is an non operative candidate with a right renal mass with possible tumor thrombus and retroperitoneal adenopathy. There is no further intervention from urologic standpoint. She will be discharged home for rehab/physical therapy and possibly hospice in the near future 07/05 today patient was seen by Urology and stated patient has and resectable renal tumor and patient is not a candidate for any surgical intervention, however patient would like to get a 2nd opinion from Oncology, will consult Oncology for further evaluation and recommendations to follow, will continue to monitor (2) Elevated troponin: Code(s): R77.8 - Other specified abnormalities of plasma proteins Status: Acute Assessment and Plan: Troponins are 0.34, 0.38, 0.41, which is not an ACS pattern Furthermore patient's pain is lower abdominal, would be atypical for ACS, and also is nonexertional EKG is not supportive of acute ischemia Taken together, this is not the picture ACS, and the pain is better explained by a cystitis Troponin elevation likely related to anemia (3) History of renal stent: Status: Acute Assessment and Plan: According to patient, was placed in April , with plan to remove at beginning of June. Urology saw her 06/21 and noted that her stent would be managed as outpatient. Seen by urology again today, reporting they will manage stent outpatient, no plan for intervention at this point. (4) Renal cell carcinoma: Code(s): C64.9 - Malignant neoplasm of unspecified kidney, except renal pelvis Status: Acute Assessment and Plan: Previously diagnosed, status post stent placement earlier 2020 CT shows metastases to IVC with thrombus and retroperitoneal lymph nodes. Will need Hematology-Oncology follow-up on discharge. 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 We will obtain urine osmolality Differential wide, including syndrome of inappropriate ADH secretion related to malignancy. 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 (6) UTI (urinary tract infection): Code(s): N39.0 - Urinary tract infection, site not specified Status: Acute Assessment and Plan: Would help explain lower abdominal pain, 3+ leukocyte esterase in urine Urine culture pending Continue Macrobid and modify based on cultures (7) Hiatal hernia: Code(s): K44.9 - Diaphragmatic hernia without obstruction or gangren
[2021-07-05] MEDS: traMADol HCL (*CRX) 50 MG TABLET PO (16:51)
--- NOTE | 2021-07-05 18:41 | PDONCCN ---
HPI - Date of Consult Date/Time: 07/05/21 18:41 Requesting Physician: Heather Butcher DO Primary Care Provider: Victorino Bunn DO - Consult Narrative Reason for consult: Metastatic renal cell carcinoma Narrative: Aryan Nick is a 80 year old female who was initially admitted to the hospital in March of 2021 with hematuria and found to have pyelonephritis and hyponatremia. She had cystoscopy along with right ureteral stent placement on March 17, 2021. It had CT scan done that showed 3.7 cm cystic lesion in the upper pole of the right kidney concerning for renal cell carcinoma. Patient lower abdominal and bilateral upper extremity weakness. CT scan done showed right renal hilum malignancy with right renal vein IVC invasion and tumor thrombus with metastatic retroperitoneal lymphadenopathy. Labs also showed hemoglobin of 6.4. She denies any bleeding including melena hematuria. She has been eating poorly and has lost almost 100 lb weight in last 1 year duration. Denies any bone pain. Review of Systems - Review of Systems All systems reviewed & are unremarkable except as noted in [facility] and [facility] Medical History: Medical History (Last Updated 07/02/21 @ 12:45 by Pawan Sadler DO) Adult hypothyroidism Anemia Arthritis Chronic hyponatremia COPD (chronic obstructive pulmonary disease) Diverticulitis Essential (primary) hypertension Gastroesophageal reflux disease without esophagitis GERD (gastroesophageal reflux disease) Hypertension IBS (irritable bowel syndrome) ILD (interstitial lung disease) Iron deficiency anemia Mixed hyperlipidemia Primary osteoarthritis involving multiple joints Psoriasis Pulmonary arterial hypertension Right renal mass Initially noted on imaging November 2020 with more suspicious imaging 03/2020 Spinal stenosis, unspecified region other than cervical Thoracic ascending aortic aneurysm 4.5 x 4.1 cm on hyperdense lesion CT November 2020 Surgical History: Surgical History (Last Reviewed 06/29/21 @ 23:28 by Leland Matt MD) H/O: hysterectomy History of back surgery History of bladder surgery History of right hip replacement History of total hip replacement Hx of cholecystectomy Family History: Family History (Last Reviewed 06/29/21 @ 23:28 by Leland Matt MD) Mother Cerebrovascular accident Father Acute myocardial infarction Sibling Heart disease - Social History Social History: Social History (Last Reviewed 06/29/21 @ 23:28 by Leland Matt MD) Gender Identity: Gender identity (if verbalized by the patient): Female Alcohol Use: Alcohol intake: never Substance Use: Substance use: never Substance use type: does not use Others: Spiritual care concerns: No Agree to blood products: Yes Smoking Status: Smoking status: Former smoker Tobacco type: cigarettes Smoking end date: 02/03/86 Approximate Smoking End Date: 1984 Smoking Pack-years: Smoking packs per day: 1 Smoking cigarettes per day: 20.0 Years smoked: 20 Smoking pack-years: 20.00 Meds Home Medications Medication Instructions Recorded Confirmed Type aspirin 81 mg tablet,delayed 81 mg PO HS 10/13/19 06/30/21 History release ekvktgwf-pau-pmsvz acid 0.4 1 tablet PO DAILY 10/13/19 06/30/21 History mg-lycopene 300 mcg-lutein 250 mcg tablet albuterol sulfate 90 mcg/actuation 2 inhalation INHALATION Q4H PRN 03/10/20 06/30/21 Rx aerosol inhaler #8.5 gm famotidine 40 mg PO DAILY 04/12/20 06/30/21 History flurbiprofen 100 mg tablet 100 mg PO BID #180 tablet 02/25/21 06/30/21 Rx candesartan 16 mg tablet 16 mg PO DAILY #90 tablet 02/28/21 06/30/21 Rx vitamin E 1 cap PO DAILY 03/17/21 06/30/21 History docusate sodium 100 mg PO Q12HR PRN #30 cap 03/22/21 06/30/21 Rx clobetasol 0.05 % topical cream 1 applic TOPICAL BID PRN #60 g 05/31/21 06/30/21 Rx levothyroxine [Synthroid] 50 mcg PO DAILY 06/21/21 06/30/21 H
[2021-07-05 22:00] VITALS: BP 116/54; PULSE 83; RESP 20; TEMP 36.5; O2SAT 98
[2021-07-06 06:00] VITALS: BP 137/60; PULSE 81; RESP 21; TEMP 37; O2SAT 100
[2021-07-06] MEDS: LEVOTHYROXINE SODIUM 50 MCG TABLET PO (06:15)
--- NOTE | 2021-07-06 08:43 | PCPTNOTE ---
Patient refused therapy at this time. Patient reports she might be willing later in the day. Will attempt at a later time.
[2021-07-06] MEDS: BENZONATATE 100 MG CAPSULE PO (09:15)
[2021-07-06] MEDS: CEPHALEXIN 250 MG CAPSULE PO (09:19)
[2021-07-06] MEDS: PANTOPRAZOLE 40 MG TABLET PO (09:19)
[2021-07-06] MEDS: POLYSACCHARIDE IRON COMPLEX 150 MG CAPSULE PO (09:19)
[2021-07-06] MEDS: CANDESARTAN CILEXETIL 16 MG TABLET PO (09:19)
[2021-07-06] MEDS: SODIUM CHLORIDE 1 GM TABLET PO (09:19)
--- NOTE | 2021-07-06 11:40 | PM.DS ---
DS: Admitting Diagnosis Admitting Diagnosis Chief Complaint: Lower abdominal pain DS: Discharge Diagnosis Discharge Diagnosis (1) Anemia: Qualifiers: Anemia type: unspecified type Qualified Code(s): D64.9 - Anemia, unspecified Code(s): D64.9 - Anemia, unspecified Status: Acute Assessment and Plan: required blood transfusion 2 days ago, underwent EGD earlier today, which did not show gastritis or any significant evidence of ulcer in the esophagus or the stomach. Patient has said that she is not open to colonoscopy. At this point anemia appears to be related to cancer. continues to have no overt bleeding including no documented hematochezia melena hematemesis hematuria or hemoptysis. Will continue p.o. iron supplementation. No indication for IV iron supplementation as ferritin is normal. Reticulocyte count is low. Will observe hemoglobin level tomorrow, and so long as patient is feeling up to it, discharge home likely tomorrow morning. Most likely source of troponin elevation on admission. Cindy is an non operative candidate with a right renal mass with possible tumor thrombus and retroperitoneal adenopathy. There is no further intervention from urologic standpoint. She will be discharged home for rehab/physical therapy and possibly hospice in the near future 07/05 today patient was seen by Urology and stated patient has and resectable renal tumor and patient is not a candidate for any surgical intervention, however patient would like to get a 2nd opinion from Oncology, will consult Oncology for further evaluation and recommendations to follow, will continue to monitor (2) Elevated troponin: Code(s): R77.8 - Other specified abnormalities of plasma proteins Status: Acute Assessment and Plan: Troponins are 0.34, 0.38, 0.41, which is not an ACS pattern Furthermore patient's pain is lower abdominal, would be atypical for ACS, and also is nonexertional EKG is not supportive of acute ischemia Taken together, this is not the picture ACS, and the pain is better explained by a cystitis Troponin elevation likely related to anemia (3) History of renal stent: Status: Acute Assessment and Plan: According to patient, was placed in April , with plan to remove at beginning of June. Urology saw her 06/21 and noted that her stent would be managed as outpatient. Seen by urology again today, reporting they will manage stent outpatient, no plan for intervention at this point. (4) Renal cell carcinoma: Code(s): C64.9 - Malignant neoplasm of unspecified kidney, except renal pelvis Status: Acute Assessment and Plan: Previously diagnosed, status post stent placement earlier 2020 CT shows metastases to IVC with thrombus and retroperitoneal lymph nodes. Will need Hematology-Oncology follow-up on discharge. 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 We will obtain urine osmolality Differential wide, including syndrome of inappropriate ADH secretion related to malignancy. 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 (6) UTI (urinary tract infection): Code(s): N39.0 - Urinary tract infection, site not specified Status: Acute Assessment and Plan: Would help explain lower abdominal pain, 3+ leukocyte esterase in urine Urine culture pending Continue Macrobid and modify based on cultures (7) Hiatal hernia: Code(s): K44.9 - Diaphragmatic hernia without obstruction or gangrene Status: Acute Assessment and Plan: Seen on CT abdomen and pelvis Also helps explain lower abdominal pain Continue Protonix b.i.d. (8) Aortic dilatation: Code(s): I77.819 - Aortic ectasia, un
[2021-07-06] MEDS: traMADol HCL (*CRX) 50 MG TABLET PO (12:08)
[2021-07-06 14:08] VITALS: BP 140/60; PULSE 98; RESP 16; TEMP 36.9; O2SAT 99
== END 2021-07-06 15:40 | DRG 687 ==
LOC: ANHED 06-30 02:18 → ANHIMU 06-30 02:45 → ANH2MED 06-30 16:46
PROVIDERS: Internal Medicine Gastroenterology; Nurse Practitioner; Admitting Provider Internal Medicine; Emergency Provider Emergency Medicine; PCP Internal Medicine; Visit Provider Internal Medicine
PROC: 0DJ08ZZ Inspection of Upper Intestinal Tract, Via Natural or Artificial Opening Endoscopic (ICD-10-PCS; CPT 43235; principal; 2021-07-04 15:00)
DX: C64.9 Malignant neoplasm of unspecified kidney, except renal pelvis; C77.2 Secondary and unspecified malignant neoplasm of intra-abdominal lymph nodes; E22.2 Syndrome of inappropriate secretion of antidiuretic hormone; N39.0 Urinary tract infection, site not specified; J84.9 Interstitial pulmonary disease, unspecified; D63.0 Anemia in neoplastic disease; J44.9 Chronic obstructive pulmonary disease, unspecified; R77.8 Other specified abnormalities of plasma proteins; I10 Essential (primary) hypertension; K21.9 Gastro-esophageal reflux disease without esophagitis; K44.9 Diaphragmatic hernia without obstruction or gangrene; I77.819 Aortic ectasia, unspecified site; E03.9 Hypothyroidism, unspecified; E78.2 Mixed hyperlipidemia; M89.49 Other hypertrophic osteoarthropathy, multiple sites; K57.90 Diverticulosis of intestine, part unspecified, without perforation or abscess without bleeding; K58.9 Irritable bowel syndrome, unspecified; Z96.89 Presence of other specified functional implants; Z79.1 Long term (current) use of non-steroidal anti-inflammatories (NSAID); Z79.82 Long term (current) use of aspirin; Z79.899 Other long term (current) drug therapy; Z87.891 Personal history of nicotine dependence
CPT/HCPCS: 36415; 36430; 74177; 80053; 81001; 82607; 82728; 82746; 83010; 83540; 83550; 83615; 83690; 83735; 83935; 84100; 84443; 84484; 85014; 85018; 85025; 85027; 85046; 85610; 86850; 86900; 86901; 86920; 87086; 87088; 93005; 96360; 96361; 97110; 97161; 97166; 97530; 99285; A9270; C9113; G0378; J1650; J1756; J2704; J7030; J7040; J7050; J7120; P9016; Q9967